=== PATIENT | female | born 1940 | race Caucasian/White ===

== ENCOUNTER 2019-09-24 09:39 | Inpatient (IN) | payer OTHER ==
[2019-09-24] MEDS ORDERED: ACETAMINOPHEN 1000 MG/100 ML VIAL (NON FORMULARY) IVPB ONE (10:07)
--- NOTE | 2019-09-24 10:20 | PDOC ---
History of Present Illness - General Chief Complaint: Rectal Bleed Stated Complaint: GI BLEED/ABD PAIN Time Seen by Provider: 09/24/19 09:51 - History of Present Illness Initial Comments: Selene Corona is a 79 y/o female with PMH significant for Type 1 DM, Parkinson's disease, presenting today with abdominal distension. Pt is A&Ox3 but not able to provide much history. Per EMS she had a GI bleed at the [facility] for the past two days and was started on protonix. Pt reports abdominal pain for the past couple of days. Reports constipation over the past couple of days. Reports vomiting a couple times a day with no blood. No fever/chills. No chest pain/shortness of breath. No leg swelling. 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 Past History - Medical History Allergies/Adverse Reactions: Allergies Allergy/AdvReac Type Severity Reaction Status Date / Time levofloxacin Allergy Verified 09/24/19 10:27 Penicillins Allergy Verified 09/24/19 14:47 Sulfa (Sulfonamide Allergy Verified 09/24/19 10:27 Antibiotics) trimethoprim Allergy Verified 07/18/13 16:30 cephalexin [Cephalexin] AdvReac Verified 09/24/19 10:27 Home Medications: Ambulatory Orders Acetaminophen [Tylenol .Regular Strength -] 650 mg PO Q6H PRN 07/18/13 Insulin (Novolog) [Novolog Flexpen -] 0 units SQ ASDIR 07/18/13 Insulin (Novolog) [Novolog Flexpen -] 3 units SQ ASDIR 07/18/13 Lisinopril [Prinivil -] 2.5 mg PO DAILY 07/18/13 Polyethylene Glycol 3350 [Miralax 255 gm Btl -] 17 gm PO DAILY 07/18/13 Insulin Detemir [Levemir Flextouch] 10 unit SQ AM 09/24/19 Lactulose (Oral Use) [Cephulac -] 20 gm PO DAILY 09/24/19 Ondansetron HCl/Pf [Ondansetron HCl 4 mg/2 ml Vial] 4 mg IM Q8H 09/24/19 Pantoprazole Sodium [Protonix] 40 mg IV DAILY 09/24/19 Potassium Chloride 20 meq PO DAILY 09/24/19 Simethicone [Gas Relief 80] 80 mg PO BID PRN 09/24/19 Anemia: No (peripheral vascular disease) CVA: Yes (SYNCOPE & COLLAPSE) COPD: No Diabetes: Yes GI Disorders: Yes HTN: Yes Hypercholesterolemia: Yes - Psycho-Social/Smoking History Smoking History: Never smoked Have you smoked in the past 12 months: No Information on smoking cessation initiated: No - Substance Abuse Hx (Audit-C & DAST Scrn) How often the patient has a drink containing alcohol: Never Score: In Men: 4 or > Positive; In Women: 3 or > Positive: 0 Screen Result (Pos requires Nsg. Audit-10AR): Negative In the last yr the pt used illegal drug/Rx for NonMed reason: No Score: Yes response is considered Positive: 0 Screen Result (Positive result requires Nsg. DAST-10): Negative Review of Systems - Review of Systems Comments:: GENERAL/CONSTITUTIONAL: No fever or chills. No weakness._ HEAD, EYES, EARS, NOSE AND THROAT: No change in vision. No change in hearing. No sore throat._ CARDIOVASCULAR: No chest pain or shortness of breath_ RESPIRATORY: Denies cough, hemoptysis_ GASTROINTESTINAL: Reports abdominal fullness and pain. Reports vomiting and constipation. GENITOURINARY: No dysuria, frequency, or change in urination._ MUSCULOSKELETAL: No joint or muscle swelling or pain. No neck or back pain._ SKIN: No rash_ NEUROLOGIC: No headache, vertigo, loss of consciousness, or change in strength/sensation._ ENDOCRINE: No increased thirst. No abnormal weight change_ HEMATOLOGIC/LYMPHATIC: No anemia, easy bleeding, or history of blood clots. ALLERGIC/IMMUNOLOGIC: No hives or skin allergy. *Physical Exam - Vital Signs Last Vital Signs Temp Pulse Resp BP Pulse Ox 96.5 F L 90 18 143/78 99 09/24/19 09:53 09/24/19 09:53 09/24/19 09:53 09/24/19 09:53 09/24/19 09:53 - Physical Exam GENERAL: Awake, alert, and oriented to person/place/time, in no acute distress_ HEAD: No signs of trauma, normocephalic, atraumatic _ EYES: PERRLA, EOMI, sclera anicteric, conjunctiva clear_ ENT: Hearing grossly normal, nares patent, oropharynx clear without exudates. No uvular deviation. Moist mucosa_ NECK: Normal ROM, supple, no lymphadenopathy, JVD, or masses_ LUNGS: No distress, speaks in full sentences, clear to auscultation bilaterally _ HEART: Regular rate and rhythm, normal S1 and S2, no murmurs appreciated, peripheral pulses normal and equal bilaterally._ ABDOMEN: Full, distended, hypertympanic. Diffuse tenderness and discomfort. No guarding, no rebound. No masses_ EXTREMITIES: Normal inspection, Normal range of motion, no edema. No clubbing or cyanosis_ NEUROLOGICAL: Cranial nerves II through XII grossly intact. Normal speech, normal no focal sensorimotor deficits _ SKIN: Warm, Dry, normal turgor, no rashes or lesions noted_ ED Treatment Course - LABORATORY CBC & Chemistry Diagram: 09/24/19 10:10 09/24/19 10:21 - RADIOLOGY Radiology Studies Ordered: Category Date Time Status CHEST X-RAY PORTABLE* [RAD] Stat Radiology 09/24/19 09:56 Ordered Medical Decision Making - Medical Decision Making 79F hx of T1DM and parkinson's presenting today with two days of concern for GI bleed. -labs -type and screen -ekg -cxr -CT abd -XR KUB 09/24/19 10:13 D/w Vanessa RHOADES. Pt had coffee ground emesis a couplke days ago x1 on 09/20. Also had vomiting of undigested food. Protonix started on September 20 40 mg BID for 1 week IV. Vomited this morning with clear fluids. XR on 09/21 shows pseudoobstruction. Seen by Dr. Mcneill this morning who requests admission to the hospital. 09/24/19 10:45 XR KUB shows likely volvulus. Unsure of how long this has been going on. Surgery consult. 09/24/19 11:35 EKG shows 87 bpm, NSR, LAD (seen on prior EKG on 2014), QTc 454, MT 162. 09/24/19 12:33 D/w Dr. Marte who states that he does not perform scopes. D/w Dr. Navarro who will evaluate the pt. Pt in LL decubitus and fleet enema applied. 09/24/19 12:39 Will start meropenem given pt allergies. 09/24/19 12:40 CT abd shows Lack of oral contrast is limiting this exam. There is marked dilatation of colonic bowel in the abdomen and pelvis without wall thickening suggestive of sigmoid volvulus. The rest of the colon is fluid-filled without dilatation and without gross wall thickening. There is no evidence of small bowel obstruction. Small to moderate amount of free fluid/ascites in the right upper abdomen and pelvis. Atrophic left kidney. Extensive vascular calcifications, as described above. Significant dilatation of the included distal esophagus down to the level of the GE junction where there appears to be a low-attenuation masslike density, on the left measuring approximately 3.8 cm and 2 Hounsfield units that may represent a fluid collection in its wall or fluid within a tortuous distal esophagus. Further evaluation is recommended. Bibasal consolidation/atelectasis/pneumonia and small bilateral pleural effusion, right more than left. 09/24/19 13:23 Labs reviewed. Laboratory Last Values WBC 12.3 K/mm3 (4.0-10.0) H 09/24/19 10:10 RBC 3.96 M/mm3 (3.60-5.2) 09/24/19 10:10 Hgb 12.5 GM/dL (10.7-15.3) 09/24/19 10:10 Hct 38.1 % (32.4-45.2) 09/24/19 10:10 MCV 96.2 fl (80-96) H 09/24/19 10:10 MCH 31.6 pg (25.7-33.7) 09/24/19 10:10 MCHC 32.9 g/dl (32.0-36.0) 09/24/19 10:10 RDW 14.5 % (11.6-15.6) 09/24/19 10:10 Plt Count 371 K/MM3 (134-434) 09/24/19 10:10 MPV 10.1 fl (7.5-11.1) 09/24/19 10:10 Absolute Neuts (auto) 10.9 K/mm3 (1.5-8.0) H 09/24/19 10:10 Neutrophils % 88.3 % (42.8-82.8) H 09/24/19 10:10 Lymphocytes % 5.9 % (8-40) L 09/24/19 10:10 Monocytes % 5.3 % (3.8-10.2) 09/24/19 10:10 Eosinophils % 0.4 % (0-4.5) 09/24/19 10:10 Basophils % 0.1 % (0-2.0) 09/24/19 10:10 Nucleated RBC % 0 % (0-0) 09/24/19 10:10 PT with INR 10.70 SEC (9.7-13.0) 09/24/19 10:10 INR 0.91 (0.83-1.09) 09/24/19 10:10 PTT (Actin FS) 25.6 SECONDS (25.2-36.5) 09/24/19 10:10 Sodium 134 mmol/L (136-145) L 09/24/19 10:21 Potassium 3.3 mmol/L (3.5-5.1) L 09/24/19 10:21 Chloride 100 mmol/L (98-107) 09/24/19 10:21 Carbon Dioxide 27 mmol/L (21-32) 09/24/19 10:21 Anion Gap 7 MMOL/L (8-16) L 09/24/19 10:21 BUN 19.7 mg/dL (7-18) H 09/24/19 10:21 Creatinine 0.8 mg/dL (0.55-1.3) 09/24/19 10:21 Est GFR (CKD-EPI)AfAm 82.42 09/24/19 10:21 Est GFR (CKD-EPI)NonAf 71.11 09/24/19 10:21 POC Glucometer 157 UNITS (80-120) 09/24/19 11:01 Random Glucose 204 mg/dL (74-106) H 09/24/19 10:21 Lactic Acid 3.0 mmol/L (0.4-2.0) H* 09/24/19 10:21 Calcium 8.3 mg/dL (8.5-10.1) L 09/24/19 10:21 Total Bilirubin 0.3 mg/dL (0.2-1) 09/24/19 10:21 AST 23 U/L (15-37) 09/24/19 10:21 ALT 19 U/L (13-61) 09/24/19 10:21 Alkaline Phosphatase 141 U/L (45-117) H 09/24/19 10:21 Creatine Kinase 164 U/L (26-192) 09/24/19 10:21 Creatine Kinase Index 2.0 % (0.0-5.0) 09/24/19 10:21 CK-MB (CK-2) 3.3 ng/mL (0.5-3.6) 09/24/19 10:21 Troponin I 0.20 ng/ml (0.00-0.05) H 09/24/19 10:21 Total Protein 6.0 g/dl (6.4-8.2) L 09/24/19 10:21 Albumin 2.5 g/dl (3.4-5.0) L 09/24/19 10:21 Lipase 60 U/L (73-393) L 09/24/19 10:21 Stool Occult Blood Trace (NEGATIVE) 09/24/19 10:03 Blood Type O POSITIVE 09/24/19 12:09 Antibody Screen Negative 09/24/19 12:09 Dr. Navarro in the ED for rectal tube placement and decompression. Pt reassessed and reports improvement in abdominal discomfort. 09/24/19 15:05 Rpt KUB XR shows rectal tube in place and bowel decompressed. D/w Dr. Emmanuel in the ICU who accepts the pt for admission. Discharge - Discharge Information Problems reviewed: Yes Clinical Impression/Diagnosis: Sigmoid volvulus Condition: Guarded - Admission Yes - Follow up/Referral - Patient Discharge Instructions - Post Discharge Activity
[2019-09-24] MEDS ORDERED: ACETAMINOPHEN INJECTION 100 ML IVPB ONE (10:23)
[2019-09-24 10:53] LABS: BASO % 0.1 % (0-2.0); EOS % 0.4 % (0-4.5); HEMATOCRIT 38.1 % (32.4-45.2); HEMOGLOBIN 12.5 GM/dL (10.7-15.3); LYMPH % 5.9 % (8-40); MCH 31.6 pg (25.7-33.7); MCHC 32.9 g/dl (32.0-36.0); MEAN CELL VOLUME 96.2 fl (80-96); MEAN PLT VOLUME 10.1 fl (7.5-11.1); MONO % 5.3 % (3.8-10.2); NEUT % 88.3 % (42.8-82.8); PLATELET COUNT 371 K/MM3 (134-434); RBC 3.96 M/mm3 (3.60-5.2); RDW 14.5 % (11.6-15.6); WHITE BLOOD COUNT 12.3 K/mm3 (4.0-10.0)
[2019-09-24 10:59] LABS: INR 0.91 (0.83-1.09); PROTHROMBIN TIME (PATIENT) 10.7 SEC (9.7-13.0)
[2019-09-24 11:01] LABS: ACTIVATED PTT 25.6 SECONDS (25.2-36.5)
--- NOTE | 2019-09-24 11:04 | PDOC ---
Documentation entered by Macrina Hodges SCRIBE, acting as scribe for Stephani Toussaint MD. Stephani Toussaint MD: This documentation has been prepared by the Tracie means Brenda, SCRIBE, under my direction and personally reviewed by me in its entirety. I confirm that the documentation accurately reflects all work, treatment, procedures, and medical decision making performed by me. Attending Attestation - Resident Resident Name: Rogelio Juárez - ED Attending Attestation I have performed the following: I have examined & evaluated the patient, The case was reviewed & discussed with the resident, I agree w/resident's findings & plan, Exceptions are as noted - HPI HPI: 09/24/19 10:42 The patient is a 79 year old female with a significant PMH of HTN, HLD and chronic constipation who presents to the ED [facility] from [facility] for evaluation of several episodes of coffee ground emesis. Per [facility], the patient had a XR on 09/22/2019 that showed a psuedo obstruction. Patient is endorsing abdominal pain and abdominal distension. She notes that she may have had a bowel movement yesterday but notes that it has been a long time since she has had a bowel movement or passed gas. - Physicial Exam PE: 09/24/19 11:15 GENERAL: (+) Mildy Uncomfortable. A&Ox3. Awake, alert, and fully oriented. HEAD: No signs of trauma NECK: Normal ROM, supple, no lymphadenopathy, JVD, or masses LUNGS: Breath sounds equal, clear to auscultation bilaterally. No wheezes, and no crackles HEART: Regular rate and rhythm, normal S1 and S2, no murmurs, rubs or gallops ABDOMEN: (+) Grossly distended (+) Diffusely tender. Normoactive bowel sounds. No masses EXTREMITIES: Normal range of motion, no edema. No clubbing or cyanosis. No cords, erythema, or tenderness NEUROLOGICAL: Cranial nerves II through XII grossly intact. Normal speech, normal gait SKIN: Warm, Dry, normal turgor, no rashes or lesions noted. - Critical Care Time Total Critical Care Time: 30 Critical Care Statement: The care of this patient involved high complexity decision making to prevent further life threatening deterioration of the patient's condition and/or to evaluate & treat vital organ system(s) failure or risk of failure. - Medical Decision Making 09/24/19 11:01 Pt presents to the ED complaining of a several day history of worsening abdominal distention, abdominal pain, nausea and vomiting. History of chronic constipation. Exam consistent with sigmoid volvulus. Flat plate of abdomen is consistent with sigmoid vovlulus. Case discussed with Dr. Mosqueda, who requests CT abdomen to distinguish between cecal and sigmoid volvulus. Patient taken for emergent CT. 09/24/19 11:02 09/24/19 11:03 Discharge - Discharge Information Problems reviewed: Yes Clinical Impression/Diagnosis: Sigmoid volvulus Condition: Guarded - Follow up/Referral - Patient Discharge Instructions - Post Discharge Activity
[2019-09-24 11:29] LABS: ALBUMIN 2.5 g/dl (3.4-5.0); BILIRUBIN,TOTAL 0.3 mg/dL (0.2-1); BLOOD UREA NITROGEN 19.7 mg/dL (7-18); CALCIUM 8.3 mg/dL (8.5-10.1); CREATININE 0.8 mg/dL (0.55-1.3); POTASSIUM 3.3 mmol/L (3.5-5.1)
[2019-09-24] MEDS ORDERED: LACTATED RINGERS SOLUTION 1000 ML INFUS.BAG IV ONE (11:44)
--- NOTE | 2019-09-24 11:48 | EKG ---
Test Reason : Blood Pressure : / mmHG Vent. Rate : 087 BPM Atrial Rate : 087 BPM P-R Int : 162 ms QRS Dur : 102 ms QT Int : 378 ms P-R-T Axes : 052 -57 039 degrees QTc Int : 454 ms NORMAL SINUS RHYTHM LEFT AXIS DEVIATION SEPTAL INFARCT , AGE UNDETERMINED POSSIBLE LATERAL INFARCT , AGE UNDETERMINED INFERIOR INFARCT , AGE UNDETERMINED ABNORMAL ECG NO PREVIOUS ECGS AVAILABLE Confirmed by ALAYNA ARIAS MD ([id number]) on 09/24/2019 11:48:15 AM Referred By: Confirmed By:ALAYNA ARIAS MD
[2019-09-24] MEDS ORDERED: SODIUM PHOSPHATE/NA BIPHOS 133 ML ENEMA PR ONE (12:24)
--- NOTE | 2019-09-24 12:26 | PN ---
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 (short form) - Note 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: surgery 79f with multiple medical problems, [facility] from [facility] after several days of treatment of pseudo-obstruction and now vomiting. kub consistent with volvulus, ct shows likely sigmoid volvulus. lactic acid 3. wbc 14, troponin 4x normal. recommend gi eval for decompression of sigmoid volvulus. consider merepenem for translocation of bacteria in setting pcn allergy. if gi unsuccessful I am available for laparotomy, sigmoid colectomy and colostomy. Pt is a poor candidate for surgery and likely would have a poor outcome.
[2019-09-24] MEDS ORDERED: MEROPENEM 1 GM in DEXTROSE 5%-WATER 100 ML IVPB ONE (12:37)
[2019-09-24] MEDS ORDERED: MEROPENEM 1 GM VIAL (RESTRICTED TO ID) IVPB ONE (12:43)
[2019-09-24] MEDS ORDERED: MEROPENEM 1 GM in SODIUM CHLORIDE 100 ML IVPB ONE (12:49)
[2019-09-24] MEDS ORDERED: LACTATED RINGERS SOLUTION 1,000 ML/1,000 ML INFUS.BAG IV SCH ×2 (14:30→17:38)
--- NOTE | 2019-09-24 14:45 | HP ---
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 On coffe grounds vomiting. In the ER CT scan of the abdimen is suggestive of sigmoid volvulus and rigid sig and rectal tube for decompression performed. Lactic acid 3.0 noted. The patient is being admitted for further management History of Present Illness: DM type 2, previously on Insulin. Atrophic kidney, history of cystitis, uti, hydronephrosis. Parkinson's disease. HTN Gait disorder. Falling. HLD, Multiple allergy. DNR/DNI Left hip fracture Syncope Compression fracture L1 Hydrocephalus on CT scan 2014 History Source: Patient, Medical Record Limitations to Obtaining History: Clinical Condition - Past Medical History FINANCE PROFESSIONAL: Yes: Syncope Cardiovascular: Yes: HTN, Hyperlipdemia Endocrine: Yes: Diabetes Mellitus - Smoking History Smoking history: Never smoked Have you smoked in the past 12 months: No - Alcohol/Substance Use Hx Alcohol Use: No - Social History ADL: Support Services History of Recent Travel: No Home Medications - Allergies Allergies/Adverse Reactions: Allergies Allergy/AdvReac Type Severity Reaction Status Date / Time levofloxacin Allergy Verified 09/24/19 10:27 Penicillins Allergy Verified 09/24/19 14:47 Sulfa (Sulfonamide Allergy Verified 09/24/19 10:27 Antibiotics) trimethoprim Allergy Verified 07/18/13 16:30 cephalexin [Cephalexin] AdvReac Verified 09/24/19 10:27 - Home Medications Home Medications: Ambulatory Orders Acetaminophen [Tylenol .Regular Strength -] 650 mg PO Q6H PRN 07/18/13 Insulin (Novolog) [Novolog Flexpen -] 0 units SQ ASDIR 07/18/13 Insulin (Novolog) [Novolog Flexpen -] 3 units SQ ASDIR 07/18/13 Lisinopril [Prinivil -] 2.5 mg PO DAILY 07/18/13 Polyethylene Glycol 3350 [Miralax 255 gm Btl -] 17 gm PO DAILY 07/18/13 Insulin Detemir [Levemir Flextouch] 10 unit SQ AM 09/24/19 Lactulose (Oral Use) [Cephulac -] 20 gm PO DAILY 09/24/19 Ondansetron HCl/Pf [Ondansetron HCl 4 mg/2 ml Vial] 4 mg IM Q8H 09/24/19 Pantoprazole Sodium [Protonix] 40 mg IV DAILY 09/24/19 Potassium Chloride 20 meq PO DAILY 09/24/19 Simethicone [Gas Relief 80] 80 mg PO BID PRN 09/24/19 Family Medical History Family History: Unremarkable Review of Systems Unable to obtain ROS, reason: Clinical condition Physical Examination Vital Signs: Vital Signs Temperature 96.5 F L 09/24/19 09:53 Pulse Rate 105 H 09/24/19 13:45 Respiratory Rate 09/24/19 13:45 Blood Pressure 158/74 09/24/19 13:45 O2 Sat by Pulse Oximetry (%) 98 09/24/19 13:45 Constitutional: Yes: Anxious, Moderate Distress, Pallor, Thin Eyes: Yes: EOM Intact, PERRL. No: Tearing HENT: Yes: Atraumatic, Normocephalic Neck: Yes: Supple, Trachea Midline. No: Decreased ROM, Lymphadenopathy Cardiovascular: Yes: Regular Rate and Rhythm, S1, S2. No: Bradycardia, Tachycardia, Bruit, JVD, Gallop, Murmur Respiratory: Yes: Regular, CTA Bilaterally Gastrointestinal: Yes: Distention, Tenderness, Vomiting. No: Palpable Mass ...Rectal Exam: Yes: Other (Tube placed) Breast(s): Yes: WNL Musculoskeletal: No: Joint Stiffness, Joint Swelling Extremities: No: Amputation, Calf Tenderness, Cold, Cyanosis Edema: No Peripheral Pulses WNL: No Peripheral Pulses: Left Doralis Pedis: 1+, Right Dorsalis Pedis: 1+ Neurological: Yes: Alert, Oriented, Unsteady Gait, Weakness. No: Aphasia, Asterixis, Ataxia, Babinski positive, Seizure ...Motor Strength: WNL Psychiatric: Yes: Alert, Oriented. No: Agitated, Suicidal Ideation Labs: CBC, BMP 09/24/19 10:10 09/24/19 10:21 Laboratory Results - last 24 hr 09/24/19 09/24/19 09/24/19 10:03 10:10 10:10 WBC 12.3 H RBC 3.96 Hgb 12.5 Hct 38.1 MCV 96.2 H MCH 31.6 MCHC 32.9 RDW 14.5 Plt Count 371 MPV 10.1 Absolute Neuts (auto) 10.9 H Neutrophils % 88.3 H Lymphocytes % 5.9 L Monocytes % 5.3 Eosinophils % 0.4 Basophils % 0.1 Nucleated RBC % 0 PT with INR 10.70 INR 0.91 PTT (Actin FS) 25.6 Sodium Potassium Chloride Carbon Dioxide Anion Gap BUN Creatinine Est GFR (CKD-EPI)AfAm Est GFR (CKD-EPI)NonAf POC Glucometer Random Glucose Lactic Acid Calcium Total Bilirubin AST ALT Alkaline Phosphatase Creatine Kinase Creatine Kinase Index CK-MB (CK-2) Troponin I Total Protein Albumin Lipase Stool Occult Blood Trace Blood Type Antibody Screen 09/24/19 09/24/19 09/24/19 10:10 10:21 10:21 WBC RBC Hgb Hct MCV MCH MCHC RDW Plt Count MPV Absolute Neuts (auto) Neutrophils % Lymphocytes % Monocytes % Eosinophils % Basophils % Nucleated RBC % PT with INR INR PTT (Actin FS) Sodium 134 L Potassium 3.3 L Chloride 100 Carbon Dioxide 27 Anion Gap 7 L BUN 19.7 H Creatinine 0.8 Est GFR (CKD-EPI)AfAm 82.42 Est GFR (CKD-EPI)NonAf 71.11 POC Glucometer Random Glucose 204 H Lactic Acid 3.0 H* Calcium 8.3 L Total Bilirubin 0.3 AST 23 ALT 19 Alkaline Phosphatase 141 H Creatine Kinase 164 Creatine Kinase Index 2.0 CK-MB (CK-2) 3.3 Troponin I 0.20 H Total Protein 6.0 L Albumin 2.5 L Lipase Stool Occult Blood Blood Type Cancelled Antibody Screen Cancelled 09/24/19 09/24/19 09/24/19 10:21 11:01 12:09 WBC RBC Hgb Hct MCV MCH MCHC RDW Plt Count MPV Absolute Neuts (auto) Neutrophils % Lymphocytes % Monocytes % Eosinophils % Basophils % Nucleated RBC % PT with INR INR PTT (Actin FS) Sodium Potassium Chloride Carbon Dioxide Anion Gap BUN Creatinine Est GFR (CKD-EPI)AfAm Est GFR (CKD-EPI)NonAf POC Glucometer 157 Random Glucose Lactic Acid Calcium Total Bilirubin AST ALT Alkaline Phosphatase Creatine Kinase Creatine Kinase Index CK-MB (CK-2) Troponin I Total Protein Albumin Lipase 60 L Stool Occult Blood Blood Type O POSITIVE Antibody Screen Negative Imaging - Results Chest X-ray: Report Reviewed Cat Scan: Report Reviewed EKG: Image Reviewed Problem List - Problems (1) Sigmoid volvulus Assessment/Plan: Dr Mosqueda was consulted, GI consulted. Recommended decompression. Rectal tube conservative management. High waqar-operative risk. IV abx and ID consult. Meropenem were given in the ER Problems reviewed: Yes Code(s): K56.2 - VOLVULUS (2) Elevated lactic acid level Assessment/Plan: R/o ischemia of the bowel due to distention Follow Lactate/ Problems reviewed: Yes Code(s): R79.89 - OTHER SPECIFIED ABNORMAL FINDINGS OF BLOOD CHEMISTRY (3) Diabetes 1.5, managed as type 1 Assessment/Plan: Follow BGM and cover with Novolog Problems reviewed: Yes Code(s): E13.9 - OTHER SPECIFIED DIABETES MELLITUS WITHOUT COMPLICATIONS (4) ASHD (arteriosclerotic heart disease) Assessment/Plan: Old SC. Cardiac enzymes. Cardiology consult, ECHO Troponin 0.2-0.2 Elevated BNP Problems reviewed: Yes Code(s): I25.10 - ATHSCL HEART DISEASE OF [place] CORONARY ARTERY W/O ANG PCTRS (5) Hypokalemia Assessment/Plan: Replace K IV NPO. Problems reviewed: Yes Code(s): E87.6 - HYPOKALEMIA
[2019-09-24] MEDS: KCL 10 MEQ IVPB 10 MEQ/100 ML INFUS.BAG IVPB SCH ×2 (14:50→18:20)
[2019-09-24] MEDS ORDERED: KCL 10 MEQ IVPB 10 MEQ/100 ML INFUS.BAG IVPB ONE (15:00)
[2019-09-24 15:04] LABS: N-TERMINAL BNP 2955.1 pg/ml (5-450)
--- NOTE | 2019-09-24 15:06 | CONSULT ---
- Consultation REQUESTING PROVIDER: CONSULT REQUEST: We have been asked to surgically evaluate this patient for suspected sigmoid volvulus PCP: Brenton Mcneill HISTORY OF PRESENT ILLNESS: Selene Corona is a 79 y/o female with PMH significant for Type 1 DM, Parkinson's disease with dementia, presented to the ED with abdominal distension. Pt is A&Ox3 but not able to provide much history. Per EMS she had a suspected GI bleed at the senior living for the past two days and was started on protonix. ED CHAINMAN confirmed info with [facility]/w Vanessa RHOADES, coffee ground emesis a couple days ago one time 09/20 - vomit, undigested food, vomited again on , protonix on the 40 mg BID x1 week IV today? vomited this morning clear fluids, XR - pseudo obstruction - Pt reports abdominal pain for the past couple of days. Reports constipation over the past couple of days. Reports vomiting a couple times a day with no blood. No fever/chills. No chest pain/shortness of breath. No leg swelling. A rectal tube was placed in the ED and patient was decompressed, however her abdomen remains distended. 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 Past History - Medical History Allergies/Adverse Reactions: Allergies Allergy/AdvReac Type Severity Reaction Status Date / Time levofloxacin Allergy Verified 09/24/19 10:27 Penicillins Allergy Verified 09/24/19 10:27 Sulfa (Sulfonamide Allergy Verified 09/24/19 10:27 Antibiotics) trimethoprim Allergy Verified 07/18/13 16:30 cephalexin [Cephalexin] AdvReac Verified 09/24/19 10:27 Home Medications: Ambulatory Orders Acetaminophen [Tylenol .Regular Strength -] 650 mg PO Q6H PRN 07/18/13 Insulin (Novolog) [Novolog Flexpen -] 0 units SQ ASDIR 07/18/13 Insulin (Novolog) [Novolog Flexpen -] 3 units SQ ASDIR 07/18/13 Lisinopril [Prinivil -] 2.5 mg PO DAILY 07/18/13 Polyethylene Glycol 3350 [Miralax 255 gm Btl -] 17 gm PO DAILY 07/18/13 Insulin Detemir [Levemir Flextouch] 10 unit SQ AM 09/24/19 Lactulose (Oral Use) [Cephulac -] 20 gm PO DAILY 09/24/19 Ondansetron HCl/Pf [Ondansetron HCl 4 mg/2 ml Vial] 4 mg IM Q8H 09/24/19 Pantoprazole Sodium [Protonix] 40 mg IV DAILY 09/24/19 Potassium Chloride 20 meq PO DAILY 09/24/19 Simethicone [Gas Relief 80] 80 mg PO BID PRN 09/24/19 Anemia: No (peripheral vascular disease) CVA: Yes (SYNCOPE & COLLAPSE) COPD: No Diabetes: Yes GI Disorders: Yes HTN: Yes Hypercholesterolemia: Yes - Psycho-Social/Smoking History Smoking History: Never smoked Have you smoked in the past 12 months: No Information on smoking cessation initiated: No - Substance Abuse Hx (Audit-C & DAST Scrn) How often the patient has a drink containing alcohol: Never Score: In Men: 4 or > Positive; In Women: 3 or > Positive: 0 Screen Result (Pos requires Nsg. Audit-10AR): Negative In the last yr the pt used illegal drug/Rx for NonMed reason: No Score: Yes response is considered Positive: 0 Screen Result (Positive result requires Nsg. DAST-10): Negative Review of Systems GENERAL/CONSTITUTIONAL: No fever or chills. No weakness. HEAD, EYES, EARS, NOSE AND THROAT: No change in vision. No change in hearing. No sore throat. CARDIOVASCULAR: No chest pain or shortness of breath RESPIRATORY: Denies cough, hemoptysis GASTROINTESTINAL: Reports abdominal fullness and pain. Reports vomiting and constipation. GENITOURINARY: No dysuria, frequency, or change in urination. MUSCULOSKELETAL: No joint or muscle swelling or pain. No neck or back pain. SKIN: No rash_ NEUROLOGIC: No headache, vertigo, loss of consciousness, or change in strength/sensation. ENDOCRINE: No increased thirst. No abnormal weight change HEMATOLOGIC/LYMPHATIC: No anemia, easy bleeding, or history of blood clots. ALLERGIC/IMMUNOLOGIC: No hives or skin allergy. *Physical Exam - Vital Signs Vital Signs Period Temp Pulse Resp BP Sys/Grossman Pulse Ox Last 24 Hr 96.5 F 90-105 18-20 143-158/74-78 98-100 - Physical Exam GENERAL: A&Ox3, NAD HEAD: No signs of trauma, normocephalic, atraumatic EYES: PERRLA, EOMI, sclera anicteric, conjunctiva clear ENT: Hearing grossly normal, nares patent, NECK: trachea midline LUNGS: Unlabored resp on @L NC, no accessory muscle use, no auditory wheezes. ABDOMEN: Full, distended, hypertympanic. no scars or lesions. some local skin irritation over LLQ, minimal diffuse tenderness and discomfort, No guarding, no rebound. No masses EXTREMITIES: Normal inspection, no edema. No clubbing or cyanosis NEUROLOGICAL: Cranial nerves II through XII grossly intact. Normal speech, normal no focal sensorimotor deficits -gait not observed SKIN: Warm, Dry, normal turgor, CBC, BMP 09/24/19 10:10 09/24/19 10:21 Abnormal Lab Results 09/24/19 09/24/19 09/24/19 10:10 10:21 10:21 WBC 12.3 H MCV 96.2 H Absolute Neuts (auto) 10.9 H Neutrophils % 88.3 H Lymphocytes % 5.9 L Sodium 134 L Potassium 3.3 L Anion Gap 7 L BUN 19.7 H Random Glucose 204 H Lactic Acid 3.0 H* Calcium 8.3 L Alkaline Phosphatase 141 H Troponin I 0.20 H B-Natriuretic Peptide Total Protein 6.0 L Albumin 2.5 L Lipase 09/24/19 09/24/19 10:21 14:00 WBC MCV Absolute Neuts (auto) Neutrophils % Lymphocytes % Sodium Potassium Anion Gap BUN Random Glucose Lactic Acid Calcium Alkaline Phosphatase Troponin I 0.20 H B-Natriuretic Peptide 2955.1 H Total Protein Albumin Lipase 60 L X-Ray, ABdomen KUB-flat plate: findings suggestive of volvulus CT scan of abdomen /pelvis: Lack of contrast is limiting the exam. There is marked dilation of colonic bowel in the abdomen and pelvis without wall thickening suggestive of sigmoid volvulus. The rest of the colon is fluid filled without dilatation without gross wall thickening. Significant dilatation of the included distal esophagus down to the level of the GE junction where there appears to be a low attenuation mass like density, on the left measuring @3.8cm and 2 Hounsfield units that may represent a fluid collection in its wall or fluid within a tourtuous distal esophagus Problem List - Problems (1) Volvulus of descending colon Assessment/Plan: 79yo with suspected sigmoid volvlus and elevated lactic acid, pain improved after decompression with rectal tube. Patient to be admitted to ICU for close observation. -Continue NPO-NGT if worsening pain or vomiting -Repeat Abdominal x-ray- KUB now -Repeat and trend lactic acid -Trend fever curve -Pain control -Surgery to follow. Evaluation and plan discussed with Dr Mosqueda Code(s): K56.2 - VOLVULUS
--- NOTE | 2019-09-24 15:20 | CON.CARD ---
Cardiology Consult (text) - Consultation Consultation Note: cc: abd pain hpi: 79 f hx htn, hld, dm, sent from ct for abd pain. Has chronic constipation, worse lately with abd/epigastric pain. No cp sob palps dizzy loc pnd orthopnea le edema. Found to have sigmoid volvulus here. pmh: per hpi psH: hip surgery social: no tob fam: no premature cad, scd ros: per hpi; all others nl meds: Home Medications Medication Instructions Recorded Acetaminophen [Tylenol .Regular 650 mg PO Q6H PRN 07/18/13 Strength -] Insulin (Novolog) [Novolog Flexpen 0 units SQ ASDIR 07/18/13 -] Insulin (Novolog) [Novolog Flexpen 3 units SQ ASDIR 07/18/13 -] Lisinopril [Prinivil -] 2.5 mg PO DAILY 07/18/13 Polyethylene Glycol 3350 [Miralax 17 gm PO DAILY 07/18/13 255 gm Btl -] Insulin Detemir [Levemir Flextouch] 10 unit SQ AM 09/24/19 Lactulose (Oral Use) [Cephulac -] 20 gm PO DAILY 09/24/19 Ondansetron HCl/Pf [Ondansetron 4 mg IM Q8H 09/24/19 HCl 4 mg/2 ml Vial] Pantoprazole Sodium [Protonix] 40 mg IV DAILY 09/24/19 Potassium Chloride 20 meq PO DAILY 09/24/19 Simethicone [Gas Relief 80] 80 mg PO BID PRN 09/24/19 pe: Vital Signs Period Temp Pulse Resp BP Sys/Grossman Pulse Ox Last 24 Hr 96.5 F 90-105 18-20 143-158/74-78 98-100 nad no jvd rrr s1s2 no r/g, +murmur (as/aortic sclerosis) abd mildly tender, nd, dec bs cta bl nl eff aao3 no le e/c/c no jaundice diaphoresis pos dp pt no cartoid bruits Laboratory Last Values WBC 12.3 K/mm3 (4.0-10.0) H 09/24/19 10:10 RBC 3.96 M/mm3 (3.60-5.2) 09/24/19 10:10 Hgb 12.5 GM/dL (10.7-15.3) 09/24/19 10:10 Hct 38.1 % (32.4-45.2) 09/24/19 10:10 MCV 96.2 fl (80-96) H 09/24/19 10:10 MCH 31.6 pg (25.7-33.7) 09/24/19 10:10 MCHC 32.9 g/dl (32.0-36.0) 09/24/19 10:10 RDW 14.5 % (11.6-15.6) 09/24/19 10:10 Plt Count 371 K/MM3 (134-434) 09/24/19 10:10 MPV 10.1 fl (7.5-11.1) 09/24/19 10:10 Absolute Neuts (auto) 10.9 K/mm3 (1.5-8.0) H 09/24/19 10:10 Neutrophils % 88.3 % (42.8-82.8) H 09/24/19 10:10 Lymphocytes % 5.9 % (8-40) L 09/24/19 10:10 Monocytes % 5.3 % (3.8-10.2) 09/24/19 10:10 Eosinophils % 0.4 % (0-4.5) 09/24/19 10:10 Basophils % 0.1 % (0-2.0) 09/24/19 10:10 Nucleated RBC % 0 % (0-0) 09/24/19 10:10 PT with INR 10.70 SEC (9.7-13.0) 09/24/19 10:10 INR 0.91 (0.83-1.09) 09/24/19 10:10 PTT (Actin FS) 25.6 SECONDS (25.2-36.5) 09/24/19 10:10 Sodium 134 mmol/L (136-145) L 09/24/19 10:21 Potassium 3.3 mmol/L (3.5-5.1) L 09/24/19 10:21 Chloride 100 mmol/L (98-107) 09/24/19 10:21 Carbon Dioxide 27 mmol/L (21-32) 09/24/19 10:21 Anion Gap 7 MMOL/L (8-16) L 09/24/19 10:21 BUN 19.7 mg/dL (7-18) H 09/24/19 10:21 Creatinine 0.8 mg/dL (0.55-1.3) 09/24/19 10:21 Est GFR (CKD-EPI)AfAm 82.42 09/24/19 10:21 Est GFR (CKD-EPI)NonAf 71.11 09/24/19 10:21 POC Glucometer 157 UNITS (80-120) 09/24/19 11:01 Random Glucose 204 mg/dL (74-106) H 09/24/19 10:21 Lactic Acid 3.0 mmol/L (0.4-2.0) H* 09/24/19 10:21 Calcium 8.3 mg/dL (8.5-10.1) L 09/24/19 10:21 Total Bilirubin 0.3 mg/dL (0.2-1) 09/24/19 10:21 AST 23 U/L (15-37) 09/24/19 10:21 ALT 19 U/L (13-61) 09/24/19 10:21 Alkaline Phosphatase 141 U/L (45-117) H 09/24/19 10:21 Creatine Kinase 174 U/L (26-192) 09/24/19 14:00 Creatine Kinase Index 2.0 % (0.0-5.0) 09/24/19 10:21 CK-MB (CK-2) 3.3 ng/mL (0.5-3.6) 09/24/19 10:21 Troponin I 0.20 ng/ml (0.00-0.05) H 09/24/19 14:00 B-Natriuretic Peptide 2955.1 pg/ml (5-450) H 09/24/19 14:00 Total Protein 6.0 g/dl (6.4-8.2) L 09/24/19 10:21 Albumin 2.5 g/dl (3.4-5.0) L 09/24/19 10:21 Lipase 60 U/L (73-393) L 09/24/19 10:21 Stool Occult Blood Trace (NEGATIVE) 09/24/19 10:03 Blood Type O POSITIVE 09/24/19 12:09 Antibody Screen Negative 09/24/19 12:09 ecg: sr nl intervals no ischemic changes cxr: no sig chf a/p: 79 f hx htn, hld, dm, sent from ct for abd pain. abd pain, sigmoid volvulus: -no signs acs. pt denies cp presently, has mostly abd pain -cont tx of volvulus per GI htn: -stable positive trop: -borderline trop elevation with flat trend and nl ck, not c/w acs. ecg w/o ischemic changes. -echo pending
--- NOTE | 2019-09-24 15:29 | CONSULT ---
Consultation: REQUESTING PROVIDER: CONSULT REQUEST: We have been asked to medically evaluate this patient for Ischemic bowel. HISTORY OF PRESENT ILLNESS: 79 year old with PMH T2DM, and Parkinson's disease presented to the ED with progressive abdominal distention and abdominal pain. Pt complained of anorexia for several days due to feelings of nausea. Reported coffee ground emesis and was placed on Protonix. Pt also complained of constipation. Pt is unsure when her last bowel movement was. Pt never had colonoscopy or endoscopy in the past. Denies fevers, chills, chest pain or shortness of breath. Admits to nausea, vomiting, abdominal pain and constipation. REVIEW OF SYSTEMS: As per HPI PMH: As above PSH: hip surgery PHYSICAL EXAMINATION Vital Signs - 24 hr 09/24/19 09/24/19 09/24/19 09:53 11:13 13:45 Temperature 96.5 F L Pulse Rate 90 Pulse Rate [ 105 H Right Radial] Respiratory 18 20 Rate Blood Pressure 143/78 Blood Pressure 158/74 [Left Arm] O2 Sat by Pulse 99 100 98 Oximetry (%) GENERAL: Awake, alert and lying in the stretcher. No acute distress/ HEENT: NCAT, EOMI. LUNGS: Breath sounds equal, clear to auscultation bilaterally HEART: Normal S1 and S2 without murmur. Regular rate and rhythm ABDOMEN: Soft, nontender, slightly distended, normoactive bowel sounds, no guarding. No scars. EXTREMITIES: No edema, well-perfused. SKIN: Warm, dry. Laboratory Last Values WBC 12.3 K/mm3 (4.0-10.0) H 09/24/19 10:10 RBC 3.96 M/mm3 (3.60-5.2) 09/24/19 10:10 Hgb 12.5 GM/dL (10.7-15.3) 09/24/19 10:10 Hct 38.1 % (32.4-45.2) 09/24/19 10:10 MCV 96.2 fl (80-96) H 09/24/19 10:10 MCH 31.6 pg (25.7-33.7) 09/24/19 10:10 MCHC 32.9 g/dl (32.0-36.0) 09/24/19 10:10 RDW 14.5 % (11.6-15.6) 09/24/19 10:10 Plt Count 371 K/MM3 (134-434) 09/24/19 10:10 MPV 10.1 fl (7.5-11.1) 09/24/19 10:10 Absolute Neuts (auto) 10.9 K/mm3 (1.5-8.0) H 09/24/19 10:10 Neutrophils % 88.3 % (42.8-82.8) H 09/24/19 10:10 Lymphocytes % 5.9 % (8-40) L 09/24/19 10:10 Monocytes % 5.3 % (3.8-10.2) 09/24/19 10:10 Eosinophils % 0.4 % (0-4.5) 09/24/19 10:10 Basophils % 0.1 % (0-2.0) 09/24/19 10:10 Nucleated RBC % 0 % (0-0) 09/24/19 10:10 PT with INR 10.70 SEC (9.7-13.0) 09/24/19 10:10 INR 0.91 (0.83-1.09) 09/24/19 10:10 PTT (Actin FS) 25.6 SECONDS (25.2-36.5) 09/24/19 10:10 Sodium 134 mmol/L (136-145) L 09/24/19 10:21 Potassium 3.3 mmol/L (3.5-5.1) L 09/24/19 10:21 Chloride 100 mmol/L (98-107) 09/24/19 10:21 Carbon Dioxide 27 mmol/L (21-32) 09/24/19 10:21 Anion Gap 7 MMOL/L (8-16) L 09/24/19 10:21 BUN 19.7 mg/dL (7-18) H 09/24/19 10:21 Creatinine 0.8 mg/dL (0.55-1.3) 09/24/19 10:21 Est GFR (CKD-EPI)AfAm 82.42 09/24/19 10:21 Est GFR (CKD-EPI)NonAf 71.11 09/24/19 10:21 POC Glucometer 157 UNITS (80-120) 09/24/19 11:01 Random Glucose 204 mg/dL (74-106) H 09/24/19 10:21 Lactic Acid 3.0 mmol/L (0.4-2.0) H* 09/24/19 10:21 Calcium 8.3 mg/dL (8.5-10.1) L 09/24/19 10:21 Total Bilirubin 0.3 mg/dL (0.2-1) 09/24/19 10:21 AST 23 U/L (15-37) 09/24/19 10:21 ALT 19 U/L (13-61) 09/24/19 10:21 Alkaline Phosphatase 141 U/L (45-117) H 09/24/19 10:21 Creatine Kinase 174 U/L (26-192) 09/24/19 14:00 Creatine Kinase Index 2.0 % (0.0-5.0) 09/24/19 10:21 CK-MB (CK-2) 3.3 ng/mL (0.5-3.6) 09/24/19 10:21 Troponin I 0.20 ng/ml (0.00-0.05) H 09/24/19 14:00 B-Natriuretic Peptide 2955.1 pg/ml (5-450) H 09/24/19 14:00 Total Protein 6.0 g/dl (6.4-8.2) L 09/24/19 10:21 Albumin 2.5 g/dl (3.4-5.0) L 09/24/19 10:21 Lipase 60 U/L (73-393) L 09/24/19 10:21 Stool Occult Blood Trace (NEGATIVE) 09/24/19 10:03 Blood Type O POSITIVE 09/24/19 12:09 Antibody Screen Negative 09/24/19 12:09 Active Medications Lactated Ringer's (Lactated Ringers Solution) 1,000 ml in 1,000 mls @ 100 mls/hr IV ASDIR ANABEL Potassium Chloride (Potassium Chloride 10 Meq Premix Ivpb -) 10 meq in 100 mls @ 100 mls/hr IVPB Q60M ANABEL Stop: 09/24/19 17:44 Insulin Aspart (Novolog Vial Sliding Scale -) 1 vial SQ ACHS ANABEL; Protocol Ondansetron HCl (Zofran Injection) 4 mg IVPUSH Q4H PRN PRN Reason: NAUSEA AND/OR VOMITING Pantoprazole Sodium (Protonix Iv) 40 mg IVPUSH DAILY ANABEL ASSESSMENT/PLAN: 79 year old with PMH T2DM, and Parkinson's disease presented to the ED with progressive abdominal distention and abdominal pain. Pt complained of anorexia for several days due to feelings of nausea. There was also history of coffee ground emesis, for which pt was placed on protonix. CT and abdominal x-ray done in the ED was suggestive of sigmoid volvulus. GI saw the pt and placed rectal tube for decompression. Abdominal distention improved, but showing signs of re- distending. The patient is being admitted for further management sigmoid volvulus with concern for possible ischemic bowel. #Neuro Parkinson's disease Alert and oriented -Not currently on Sinemet, will resume once tolerating PO. #CV Borderline troponin elevation -Cardio consulted. Borderline troponin elevation and normal CK is not consistent with acute coronary syndrome. ECG is without ischemic changes. -Follow echo #Pulm -Place on NC 2L -Supplemental O2 to keep SpO2 >95% #GI Abdominal distention with concern for ischemic bowel -CT abdomen/pelvis - suggestive of sigmoid volvulus. No evidence of small bowel obstruction. Significant dilation of distal esophagus down the the level of the GE junction. 3.8 cm fluid collection within tortuous distal esophagus. -KUB - coffee allison appearance, dilated sigmoid. Repeat KUB showed improved distention, with rectal tube. -GI consulted. Rectal tube for decompression. -Surgery consulted. May do laparotomy, sigmoid colectomy and colostomy in the event that GI decompression is unsuccessful. Pt is poor candidate for surgery and would likely have poor outcome. -Given Zofran PRN for nausea -Given Protonix IV #Endo T2DM -BGM with ISS #Renal Hypokalemia -Received 10 mEq KCl in ED #ID Abdominal pain r/o infectious etiology. -Given meropenem in ED. -ID consulted. Recommended Ertapenem for coverage, given pt's allergy profile. -Follow WBC -Trend lactate #Ppx -GI: protonix -DVT: SCD #FEN -LR Dispo: We will continue to follow the patient. Thank you for this consultative opportunity. Visit type - Emergency Visit Emergency Visit: Yes ED Registration Date: 09/24/19 Care time: The patient presented to the Emergency Department on the above date and was hospitalized for further evaluation of their emergent condition. - New Patient This patient is new to me today: Yes Date on this admission: 09/27/19 - Critical Care Critical Care patient: Yes Total Critical Care Time (in minutes): 37 Critical Care Statement: The care of this patient involved high complexity decision making to prevent further life threatening deterioration of the patient's condition and/or to evaluate & treat vital organ system(s) failure or risk of failure. ATTENDING PHYSICIAN STATEMENT I saw and evaluated the patient. I reviewed the resident's note and discussed the case with the resident. I agree with the resident's findings and plan as documented. SUBJECTIVE: OBJECTIVE: ASSESSMENT AND PLAN:
--- NOTE | 2019-09-24 16:26 | PN ---
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 (short form) - Note 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: ID consult dictated imp/reccd 79 yo NHR admitted with vomiting, abdominal distension for several days- perhaps a week or two per patient she is not sure when she last had a BM, has chronic constipation'denies fevers or chills no urinary symptoms had ct scan in ED and was seen by surgery and GI- rectal tube placed for sigmoid volvulus she has multiple antiibotic allergies and was started on meropenem for bowel coverage Sigmoid volvulus Multiple antibioitic allergies DNR/DNR management of volvolus per surgery/GI will switch to to ertapenem - this should be adequate bowel coverage d/w ICU resident Problem List - Problems (1) Sigmoid volvulus Code(s): K56.2 - VOLVULUS (2) Allergy to multiple antibiotics Code(s): Z88.1 - ALLERGY STATUS TO OTHER ANTIBIOTIC AGENTS STATUS
--- NOTE | 2019-09-24 18:01 | CONS ---
DATE OF CONSULTATION: DATE OF DICTATION: 09/24/2019 INFECTIOUS DISEASE CONSULTATION HISTORY OF PRESENT ILLNESS: This is a 79-year-old woman who is admitted from [facility]. She states she has been a resident there for 25 years. She has progressive abdominal distention. She has been vomiting. She reports this has been going on she thinks for 1-2 weeks; per the chart, since the . She had some coffee ground emesis. She had a CAT scan done in the ER today that was consistent with a sigmoid volvulus. She had a rectal tube placed with some improvement, though she remains distended. She reports not feeling well, reports the vomiting. She has no fevers, chills. She reports she has not had a bowel movement. She had a history of chronic constipation. She does not recall when she last passed any stool. She denies passing any gas as well. She notes she has been vomiting. She has no problems urinating. PAST MEDICAL HISTORY: Notable for history of type II diabetes, atrophic kidneys, cystitis, UTI, Parkinson disease, hypertension, gait disorder, hyperlipidemia. She had a left hip, partial left hip replacement. She has a history of syncope, compression fractures. She has a history of hyperlipidemia. ALLERGIES: She is allergic to LEVOFLOXACIN, PENICILLIN, SULFA, as well as CEPHALEXIN and TRIMETHOPRIM. She is not aware of any of the nature of any of these allergies. MEDICATION: Her medications include: 1. Acetaminophen. 2. Lisinopril. 3. Pantoprazole. SOCIAL HISTORY: She is a long-term resident of [facility]. She has not been hospitalized in many years. 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 There is no history of cigarette, alcohol, or substance use. She spends most of her time in a wheelchair. She has minimal ambulation with assistance with a walker. REVIEW OF SYSTEMS: Notable for abdominal distention and discomfort as well as the vomiting. There are no respiratory symptoms. She has no cough or shortness of breath. PHYSICAL EXAMINATION: General: She is an elderly woman. She follows commands. In no acute distress. Vital Signs: Temperature 98.2, pulse 94, blood pressure 176/85, respiratory rate 22, she is saturating 98% on room air. HEENT: Normocephalic. Eyes are anicteric. She has no thrush or pharyngitis. Neck: Supple. Lungs: Diminished breath sounds at the bases. Heart: Regular rate and rhythm. Abdomen: Distended. She has minimal bowel sounds and soft. Extremities: Without edema. Genitourinary: She has a rectal tube in place. LABORATORY: Notable for white count of 12.3, hemoglobin 12.5, platelets are 371. BUN and creatinine are 19 and 0.8, lactic acid was 3, repeat is 2.6, alkaline phosphatase is 141. Urinalysis is not done. Stool is trace positive. COVID-19 PCR is pending. No cultures have been sent. IMPRESSION: In summary, this is an elderly woman from the correction with sigmoid volvulus, multiple ANTIBIOTIC allergies, do not resuscitate/do not intubate. Management of her volvulus per surgery and gastrointestinal. Would get blood cultures and would switch to ertapenem, which should be appropriate. She received a dose of meropenem in the ER given her multiple allergies and the fact she has tolerated carbapenem, would continue her on ertapenem 1 g daily. Case was discussed with intensive care unit resident. WINNIE HINES M.D. [id number]
[2019-09-24] MEDS: INSULIN SLIDING SCALE (NOVOLOG) 1 VIAL SQ SCH ×2 (18:19→21:41)
--- NOTE | 2019-09-24 18:19 | CON.GI ---
Consult Consult Specialty:: GI - History of Present Illness History of Present Illness: Asked to see patient because of abdominal distention because of sigmoid volvulus. She was seen in the ER and rectal tube was inserted. It was a successful decompression as patient passed a lot of gas. 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 Cardio/Vascular: Yes: HTN, Hyperlipdemia ...: No Endocrine: Yes: Diabetes Mellitus - Alcohol/Substance Use Hx Alcohol Use: No - Smoking History Smoking history: Never smoked Have you smoked in the past 12 months: No - Social History Usual Living Arrangement: Long Term ADL: Support Services History of Recent Travel: No Home Medications - Allergies Allergies/Adverse Reactions: Allergies Allergy/AdvReac Type Severity Reaction Status Date / Time levofloxacin Allergy Verified 09/24/19 10:27 Penicillins Allergy Verified 09/24/19 14:47 Sulfa (Sulfonamide Allergy Verified 09/24/19 10:27 Antibiotics) trimethoprim Allergy Verified 07/18/13 16:30 cephalexin [Cephalexin] AdvReac Verified 09/24/19 10:27 - Home Medications Home Medications: Ambulatory Orders Acetaminophen [Tylenol .Regular Strength -] 650 mg PO Q6H PRN 07/18/13 Insulin (Novolog) [Novolog Flexpen -] 0 units SQ ASDIR 07/18/13 Insulin (Novolog) [Novolog Flexpen -] 3 units SQ ASDIR 07/18/13 Lisinopril [Prinivil -] 2.5 mg PO DAILY 07/18/13 Polyethylene Glycol 3350 [Miralax 255 gm Btl -] 17 gm PO DAILY 07/18/13 Insulin Detemir [Levemir Flextouch] 10 unit SQ AM 09/24/19 Lactulose (Oral Use) [Cephulac -] 20 gm PO DAILY 09/24/19 Ondansetron HCl/Pf [Ondansetron HCl 4 mg/2 ml Vial] 4 mg IM Q8H 09/24/19 Pantoprazole Sodium [Protonix] 40 mg IV DAILY 09/24/19 Potassium Chloride 20 meq PO DAILY 09/24/19 Simethicone [Gas Relief 80] 80 mg PO BID PRN 09/24/19 Physical Exam-GI Vital Signs: Vital Signs Temperature 98.2 F 09/24/19 15:40 Pulse Rate 80 09/24/19 15:40 Respiratory Rate 14 09/24/19 15:40 Blood Pressure 130/80 09/24/19 15:40 O2 Sat by Pulse Oximetry (%) 98 09/24/19 15:40 Constitutional: Yes: Well Nourished Eyes: Yes: Conjunctiva Clear, Occular Prosthesis Neck: Yes: Supple, Tenderness Respiratory: Yes: CTA Bilaterally Gastrointestinal Inspection: Yes: Distention (--resolved after decopression) ...Palpate: Yes: Soft. No: Firm/Rigid, Guarding, Hepatomegaly, Mass, Pulsatile Mass, Splenomegaly, Tenderness ...Percussion: Yes: Tympanitic (mild after decompression) Labs: CBC, BMP 09/24/19 10:10 09/24/19 10:21 INR, PTT INR 0.91 (0.83-1.09) 09/24/19 10:10 CBCD WBC 12.3 K/mm3 (4.0-10.0) H 09/24/19 10:10 RBC 3.96 M/mm3 (3.60-5.2) 09/24/19 10:10 Hgb 12.5 GM/dL (10.7-15.3) 09/24/19 10:10 Hct 38.1 % (32.4-45.2) 09/24/19 10:10 MCV 96.2 fl (80-96) H 09/24/19 10:10 MCHC 32.9 g/dl (32.0-36.0) 09/24/19 10:10 RDW 14.5 % (11.6-15.6) 09/24/19 10:10 Plt Count 371 K/MM3 (134-434) 09/24/19 10:10 MPV 10.1 fl (7.5-11.1) 09/24/19 10:10 CMP Sodium 134 mmol/L (136-145) L 09/24/19 10:21 Potassium 3.3 mmol/L (3.5-5.1) L 09/24/19 10:21 Chloride 100 mmol/L (98-107) 09/24/19 10:21 Carbon Dioxide 27 mmol/L (21-32) 09/24/19 10:21 Anion Gap 7 MMOL/L (8-16) L 09/24/19 10:21 BUN 19.7 mg/dL (7-18) H 09/24/19 10:21 Creatinine 0.8 mg/dL (0.55-1.3) 09/24/19 10:21 Calcium 8.3 mg/dL (8.5-10.1) L 09/24/19 10:21 Total Bilirubin 0.3 mg/dL (0.2-1) 09/24/19 10:21 AST 23 U/L (15-37) 09/24/19 10:21 ALT 19 U/L (13-61) 09/24/19 10:21 Alkaline Phosphatase 141 U/L (45-117) H 09/24/19 10:21 Total Protein 6.0 g/dl (6.4-8.2) L 09/24/19 10:21 Albumin 2.5 g/dl (3.4-5.0) L 09/24/19 10:21 Assessment/Plan A> sigmoid volvulus s/p decompression r> may have clear liquids advance diet as tolerated will need second opinion regarding conservative management which will result in recurrent volvulus vs surgical option once medically optimized and cleared for surgery IV hydration Dr Sánchez will follow in am and Dr Sanders over the weekend.
[2019-09-24] MEDS ORDERED: DEXTROSE 5%-WATER 100 ML IVPB IVPB ONE (20:04)
[2019-09-24] MEDS ORDERED: DEXTROSE 50%-WATER 25 GM/50 ML DISP.SYRIN ONE (20:09)
[2019-09-24] MEDS ORDERED: PT OWN MED DRAWER 7, Y5N ONE (20:47)
[2019-09-24] MEDS: CHLORHEXIDINE GLUCONATE 4% CLEANSER FOR DECOLONIZATION TP SCH (21:36)
[2019-09-24] MEDS: ERTAPENEM SODIUM 1 GM in SODIUM CHLORIDE 50 ML IVPB SCH (21:39)
[2019-09-24] MEDS: MUPIROCIN 2% TOPICAL OINTMENT FOR DECOLONIZATION NS SCH (21:39)
[2019-09-24] MEDS: DEXTROSE 5%-LACTATED RINGERS 1,000 ML IV SCH (22:00)
--- NOTE | 2019-09-25 06:24 | PN ---
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, Physician Chief Complaint: asleep TELE: SR, Sinus tach, Rare VPCs Not requiring O2 K+ low, being repleted. History of Present Illness: Volvulus Abd pain Equivocal TnI DNR/DNI - Current Medication List Current Medications: Active Medications Chlorhexidine Gluconate (Hibiclens For Decolonization -) 1 applic TP HS [facility] Last Admin: 09/24/19 21:36 Dose: 1 applic Documented by: Ertapenem 1 gm/ Sodium (Chloride) 50 mls @ 100 mls/hr IVPB HS [facility] Last Admin: 09/24/19 21:39 Dose: 100 mls/hr Documented by: Dextrose/Lactated Ringer's (D5-Lr -) 1,000 mls @ 125 mls/hr IV ASDIR [facility] Last Admin: 09/24/19 22:00 Dose: 125 mls/hr Documented by: Insulin Aspart (Novolog Vial Sliding Scale -) 1 vial SQ [facility]; Protocol Last Admin: 09/24/19 21:41 Dose: Not Given Documented by: Mupirocin (Bactroban Ointment (For Decolonization) -) 1 applic NS BID [facility] Stop: 09/29/19 21:59 Last Admin: 09/24/19 21:39 Dose: 1 applic Documented by: Ondansetron HCl (Zofran Injection) 4 mg IVPUSH Q4H PRN PRN Reason: NAUSEA AND/OR VOMITING Pantoprazole Sodium (Protonix Iv) 40 mg IVPUSH DAILY [facility] - Objective Vital Signs: Vital Signs Temperature 98.2 F 09/25/19 02:00 Pulse Rate 89 09/25/19 06:00 Respiratory Rate 16 09/25/19 06:00 Blood Pressure 178/78 H 09/25/19 06:00 O2 Sat by Pulse Oximetry (%) 89 L 09/25/19 06:00 Constitutional: Yes: No Distress, Calm Eyes: Yes: Conjunctiva Clear Cardiovascular: Yes: Regular Rate and Rhythm Respiratory: Yes: CTA Bilaterally (clear anteriorly and laterally) Gastrointestinal: Yes: Soft (NT) Edema: No (venodynes) Labs: CBC, BMP 09/24/19 10:10 09/24/19 10:21 INR, PTT INR 0.91 (0.83-1.09) 09/24/19 10:10 Laboratory Tests 09/24/19 09/24/1909/23/20 10:10 10:21 14:00 WBC Plt Count PT with INR 10.70 Sodium Potassium Creatinine Troponin I 0.20 H 0.20 H 09/24/19 09/25/19 09/25/19 21:25 06:06 06:06 WBC 15.7 H Plt Count 332 PT with INR Sodium 138 Potassium 3.0 L Creatinine 0.6 Troponin I 0.18 H - ....Imaging EKG: Image Reviewed Assessment/Plan ecg: sr nl intervals no ischemic changes cxr: no sig chf a/p: 79 f hx htn, hld, dm, [place] [facility] [place]. abd pain, sigmoid volvulus: -no signs acs. -cont tx of volvulus per GI htn: -at times above goal, follow BP trend positive trop: -borderline trop elevation with flat trend and nl ck, not c/w acs. ecg w/o ischemic changes. -echo pending
[2019-09-25] MEDS: INSULIN SLIDING SCALE (NOVOLOG) 1 VIAL SQ SCH ×4 (06:45→21:11)
[2019-09-25 07:01] LABS: BASO % 0.1 % (0-2.0); EOS % 1.3 % (0-4.5); HEMATOCRIT 37.1 % (32.4-45.2); HEMOGLOBIN 11.9 GM/dL (10.7-15.3); LYMPH % 4.1 % (8-40); MCH 30.7 pg (25.7-33.7); MCHC 32.2 g/dl (32.0-36.0); MEAN CELL VOLUME 95.3 fl (80-96); MONO % 5.9 % (3.8-10.2); NEUT % 88.6 % (42.8-82.8); PLATELET COUNT 332 K/MM3 (134-434); RBC 3.89 M/mm3 (3.60-5.2); RDW 14.7 % (11.6-15.6); WHITE BLOOD COUNT 15.7 K/mm3 (4.0-10.0)
[2019-09-25 07:46] LABS: ALBUMIN 2.3 g/dl (3.4-5.0); BILIRUBIN,TOTAL 0.3 mg/dL (0.2-1); CALCIUM 8.8 mg/dL (8.5-10.1); CREATININE 0.6 mg/dL (0.55-1.3); PHOSPHOROUS 1.9 mg/dL (2.5-4.9); TOT PROT 5.4 g/dl (6.4-8.2)
[2019-09-25] MEDS ORDERED: NAPH,MB-DB/K PH,MBDB POWDER PACKET PO ONE (08:35)
--- NOTE | 2019-09-25 08:50 | PN ---
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, Physician Chief Complaint: Over night after decompression the patient abdominal distention improved. Lactic acid decreased 2.1. Still nauseated intermittently. History of Present Illness: DM type 2, previously on Insulin. Atrophic kidney, history of cystitis, uti, hydronephrosis. Parkinson's disease. HTN Gait disorder. Falling. HLD, Multiple allergy. DNR/DNI Left hip fracture Syncope Compression fracture L1 Hydrocephalus on CT scan 2014 - Current Medication List Current Medications: Active Medications Chlorhexidine Gluconate (Hibiclens For Decolonization -) 1 applic TP HS [facility] Last Admin: 09/24/19 21:36 Dose: 1 applic Documented by: Ertapenem 1 gm/ Sodium (Chloride) 50 mls @ 100 mls/hr IVPB HS [facility] Last Admin: 09/24/19 21:39 Dose: 100 mls/hr Documented by: Dextrose/Lactated Ringer's (D5-Lr -) 1,000 mls @ 125 mls/hr IV ASDIR [facility] Last Admin: 09/24/19 22:00 Dose: 125 mls/hr Documented by: Potassium Phosphate 30 mm/ (Dextrose) 260 mls @ 43.333 mls/hr IVPB ONCE ONE Stop: 09/25/19 14:59 Insulin Aspart (Novolog Vial Sliding Scale -) 1 vial SQ ACHS [facility]; Protocol Last Admin: 09/25/19 06:45 Dose: Not Given Documented by: Mupirocin (Bactroban Ointment (For Decolonization) -) 1 applic NS BID [facility] Stop: 09/29/19 21:59 Last Admin: 09/24/19 21:39 Dose: 1 applic Documented by: Ondansetron HCl (Zofran Injection) 4 mg IVPUSH Q4H PRN PRN Reason: NAUSEA AND/OR VOMITING Pantoprazole Sodium (Protonix Iv) 40 mg IVPUSH DAILY [facility] - Objective Vital Signs: Vital Signs Temperature 97.2 F L 09/25/19 06:00 Pulse Rate 89 09/25/19 06:00 Respiratory Rate 16 09/25/19 06:00 Blood Pressure 178/78 H 09/25/19 06:00 O2 Sat by Pulse Oximetry (%) 89 L 09/25/19 06:00 Constitutional: Yes: Anxious, Moderate Distress, Pallor. No: Ashen, Obese Eyes: Yes: Conjunctiva Clear, EOM Intact HENT: Yes: Atraumatic, Normocephalic Neck: Yes: Supple, Trachea Midline Cardiovascular: Yes: Pulse Irregular, S1, S2. No: Bruit, JVD Respiratory: Yes: CTA Bilaterally, On Nasal O2 Gastrointestinal: Yes: Soft. No: Vomiting ...Rectal Exam: Yes: Deferred, Other (Rectal tube with small amount of liquid stool) Genitourinary: No: CVA Tenderness - Left, CVA Tenderness - Right Breast(s): Yes: WNL Musculoskeletal: No: Back Pain Extremities: No: Amputation, Calf Tenderness, Cold Edema: No Peripheral Pulses WNL: No Neurological: Yes: Tremors (Parkinson's disease) ...Motor Strength: WNL Psychiatric: Yes: WNL Labs: CBC, BMP 09/25/19 06:06 09/25/19 06:06 INR, PTT INR 0.91 (0.83-1.09) 09/24/19 10:10 Laboratory Results - last 24 hr 09/24/19 09/24/19 09/24/19 10:03 10:10 10:10 WBC 12.3 H RBC 3.96 Hgb 12.5 Hct 38.1 MCV 96.2 H MCH 31.6 MCHC 32.9 RDW 14.5 Plt Count 371 MPV 10.1 Absolute Neuts (auto) 10.9 H Neutrophils % 88.3 H Lymphocytes % 5.9 L Monocytes % 5.3 Eosinophils % 0.4 Basophils % 0.1 Nucleated RBC % 0 PT with INR 10.70 INR 0.91 PTT (Actin FS) 25.6 Sodium Potassium Chloride Carbon Dioxide Anion Gap BUN Creatinine Est GFR (CKD-EPI)AfAm Est GFR (CKD-EPI)NonAf POC Glucometer Random Glucose Lactic Acid Calcium Phosphorus Magnesium Total Bilirubin AST ALT Alkaline Phosphatase Creatine Kinase Creatine Kinase Index CK-MB (CK-2) Troponin I B-Natriuretic Peptide Total Protein Albumin Lipase Stool Occult Blood Trace Blood Type Antibody Screen 09/24/19 09/24/19 09/24/19 10:10 10:21 10:21 WBC RBC Hgb Hct MCV MCH MCHC RDW Plt Count MPV Absolute Neuts (auto) Neutrophils % Lymphocytes % Monocytes % Eosinophils % Basophils % Nucleated RBC % PT with INR INR PTT (Actin FS) Sodium 134 L Potassium 3.3 L Chloride 100 Carbon Dioxide 27 Anion Gap 7 L BUN 19.7 H Creatinine 0.8 Est GFR (CKD-EPI)AfAm 82.42 Est GFR (CKD-EPI)NonAf 71.11 POC Glucometer Random Glucose 204 H Lactic Acid 3.0 H* Calcium 8.3 L Phosphorus Magnesium Total Bilirubin 0.3 AST 23 ALT 19 Alkaline Phosphatase 141 H Creatine Kinase 164 Creatine Kinase Index 2.0 CK-MB (CK-2) 3.3 Troponin I 0.20 H B-Natriuretic Peptide Total Protein 6.0 L Albumin 2.5 L Lipase Stool Occult Blood Blood Type Cancelled Antibody Screen Cancelled 09/24/19 09/24/19 09/24/19 10:21 11:01 12:09 WBC RBC Hgb Hct MCV MCH MCHC RDW Plt Count MPV Absolute Neuts (auto) Neutrophils % Lymphocytes % Monocytes % Eosinophils % Basophils % Nucleated RBC % PT with INR INR PTT (Actin FS) Sodium Potassium Chloride Carbon Dioxide Anion Gap BUN Creatinine Est GFR (CKD-EPI)AfAm Est GFR (CKD-EPI)NonAf POC Glucometer 157 Random Glucose Lactic Acid Calcium Phosphorus Magnesium Total Bilirubin AST ALT Alkaline Phosphatase Creatine Kinase Creatine Kinase Index CK-MB (CK-2) Troponin I B-Natriuretic Peptide Total Protein Albumin Lipase 60 L Stool Occult Blood Blood Type O POSITIVE Antibody Screen Negative 09/24/19 09/24/19 09/24/19 14:00 15:25 17:41 WBC RBC Hgb Hct MCV MCH MCHC RDW Plt Count MPV Absolute Neuts (auto) Neutrophils % Lymphocytes % Monocytes % Eosinophils % Basophils % Nucleated RBC % PT with INR INR PTT (Actin FS) Sodium Potassium Chloride Carbon Dioxide Anion Gap BUN Creatinine Est GFR (CKD-EPI)AfAm Est GFR (CKD-EPI)NonAf POC Glucometer 57 Random Glucose Lactic Acid 2.6 H* Calcium Phosphorus Magnesium Total Bilirubin AST ALT Alkaline Phosphatase Creatine Kinase 174 Creatine Kinase Index 2.0 CK-MB (CK-2) 3.6 Troponin I 0.20 H B-Natriuretic Peptide 2955.1 H Total Protein Albumin Lipase Stool Occult Blood Blood Type Antibody Screen 09/24/19 09/24/19 09/24/19 19:16 20:07 21:25 WBC RBC Hgb Hct MCV MCH MCHC RDW Plt Count MPV Absolute Neuts (auto) Neutrophils % Lymphocytes % Monocytes % Eosinophils % Basophils % Nucleated RBC % PT with INR INR PTT (Actin FS) Sodium Potassium Chloride Carbon Dioxide Anion Gap BUN Creatinine Est GFR (CKD-EPI)AfAm Est GFR (CKD-EPI)NonAf POC Glucometer 43 Random Glucose Lactic Acid 2.1 H Calcium Phosphorus Magnesium Total Bilirubin AST ALT Alkaline Phosphatase Creatine Kinase Creatine Kinase Index CK-MB (CK-2) Troponin I 0.18 H B-Natriuretic Peptide Total Protein Albumin Lipase Stool Occult Blood Blood Type Antibody Screen 09/24/19 09/25/19 09/25/19 21:39 06:06 06:06 WBC 15.7 H RBC 3.89 Hgb 11.9 Hct 37.1 MCV 95.3 MCH 30.7 MCHC 32.2 RDW 14.7 Plt Count 332 MPV 10.0 Absolute Neuts (auto) 13.9 H Neutrophils % 88.6 H Lymphocytes % 4.1 L D Monocytes % 5.9 Eosinophils % 1.3 D Basophils % 0.1 Nucleated RBC % 0 PT with INR INR PTT (Actin FS) Sodium 138 Potassium 3.0 L Chloride 101 Carbon Dioxide 27 Anion Gap 10 BUN 14.0 Creatinine 0.6 Est GFR (CKD-EPI)AfAm 101.90 Est GFR (CKD-EPI)NonAf 87.92 POC Glucometer 55 Random Glucose 90 Lactic Acid Calcium 8.8 Phosphorus 1.9 L Magnesium 2.0 Total Bilirubin 0.3 AST 24 ALT 18 Alkaline Phosphatase 128 H Creatine Kinase Creatine Kinase Index CK-MB (CK-2) Troponin I B-Natriuretic Peptide Total Protein 5.4 L Albumin 2.3 L Lipase Stool Occult Blood Blood Type Antibody Screen 09/25/19 06:44 WBC RBC Hgb Hct MCV MCH MCHC RDW Plt Count MPV Absolute Neuts (auto) Neutrophils % Lymphocytes % Monocytes % Eosinophils % Basophils % Nucleated RBC % PT with INR INR PTT (Actin FS) Sodium Potassium Chloride Carbon Dioxide Anion Gap BUN Creatinine Est GFR (CKD-EPI)AfAm Est GFR (CKD-EPI)NonAf POC Glucometer 82 Random Glucose Lactic Acid Calcium Phosphorus Magnesium Total Bilirubin AST ALT Alkaline Phosphatase Creatine Kinase Creatine Kinase Index CK-MB (CK-2) Troponin I B-Natriuretic Peptide Total Protein Albumin Lipase Stool Occult Blood Blood Type Antibody Screen - ....Imaging X-ray: Image Reviewed Problem List - Problems (1) Sigmoid volvulus Assessment/Plan: Dr Jeffery was consulted, Spoke to PA today. GI consulted-spoke to Dr Sánchez-colonoscopy/GGE. Patient agrees. Ertapenem for bacterial translocation. WBC 15 K IV fluids. NPO Rectal tube. 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 Cardiac enzymes. Cardiology consult, ECHO Troponin 0.2-0.2 Elevated BNP Code(s): I25.10 - ATHSCL HEART DISEASE OF [place] CORONARY ARTERY W/O ANG PCTRS (5) Hypokalemia Assessment/Plan: Replace K IV NPO. Code(s): E87.6 - HYPOKALEMIA
[2019-09-25] MEDS ORDERED: POTASSIUM PHOSPHATE 30 MM in DEXTROSE 5%-WATER - 250 ML IVPB ONE (09:00)
[2019-09-25] MEDS: PANTOPRAZOLE SODIUM 40 MG VIAL IVPUSH SCH (09:41)
[2019-09-25] MEDS: ONDANSETRON 4 MG/2 ML VIAL IVPUSH PRN ×2 (09:42→23:20)
[2019-09-25] MEDS: MUPIROCIN 2% TOPICAL OINTMENT FOR DECOLONIZATION NS SCH ×2 (10:25→21:19)
--- NOTE | 2019-09-25 10:34 | EKG ---
Test Reason : Blood Pressure : / mmHG Vent. Rate : 097 BPM Atrial Rate : 097 BPM P-R Int : 180 ms QRS Dur : 092 ms QT Int : 378 ms P-R-T Axes : 052 -64 072 degrees QTc Int : 480 ms NORMAL SINUS RHYTHM LEFT ANTERIOR FASCICULAR BLOCK SEPTAL INFARCT (CITED ON OR BEFORE 24-SEP-2019) INFERIOR INFARCT (CITED ON OR BEFORE 24-SEP-2019) ABNORMAL ECG WHEN COMPARED WITH ECG OF 24-SEP-2019 14:11, QUESTIONABLE CHANGE IN INITIAL FORCES OF ANTEROLATERAL LEADS Confirmed by JHOAN CHAN MD ([id number]) on 09/25/2019 10:33:46 AM Referred By: DELFIN Confirmed By:JHOAN CHAN MD
--- NOTE | 2019-09-25 10:35 | EKG ---
Test Reason : Blood Pressure : / mmHG Vent. Rate : 103 BPM Atrial Rate : 103 BPM P-R Int : 186 ms QRS Dur : 076 ms QT Int : 344 ms P-R-T Axes : 050 -51 065 degrees QTc Int : 450 ms SINUS TACHYCARDIA LEFT AXIS DEVIATION LOW VOLTAGE QRS INFERIOR INFARCT (CITED ON OR BEFORE 24-SEP-2019) POSSIBLE ANTEROLATERAL INFARCT (CITED ON OR BEFORE 24-SEP-2019) ABNORMAL ECG WHEN COMPARED WITH ECG OF 24-SEP-2019 10:41, QUESTIONABLE CHANGE IN INITIAL FORCES OF ANTERIOR LEADS Confirmed by JHOAN CHAN MD ([id number]) on 09/25/2019 10:35:14 AM Referred By: Confirmed By:JHOAN CHAN MD
--- NOTE | 2019-09-25 11:20 | PN ---
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 (short form) - Note 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: feels improved no fevers Vital Signs Period Temp Pulse Resp BP Sys/Grossman Pulse Ox Last 24 Hr 97.2 F-98.4 F 80-105 11-22 130-178/63-85 89-99 cor-rrr lungs decreased bs at bases abd soft,nt, less distension ext no edema +rectal tube CBC, BMP 09/25/19 06:06 09/25/19 06:06 lactic acid 2.1 imp/reccd Sigmoid volvulus Multiple antibioitic allergies DNR/DNR management of volvolus per surgery/GI continue ertapenem f/u cultures Problem List - Problems (1) Sigmoid volvulus Code(s): K56.2 - VOLVULUS (2) Allergy to multiple antibiotics Code(s): Z88.1 - ALLERGY STATUS TO OTHER ANTIBIOTIC AGENTS STATUS
[2019-09-25] MEDS ORDERED: PROPOFOL 20 ML ONE ×4 (12:15)
[2019-09-25] MEDS ORDERED: SUCCINYLCHOLINE CHLORIDE 200 MG/10 ML SYRINGE ONE (12:16)
--- NOTE | 2019-09-25 13:40 | PN ---
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 (short form) - Note 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: GI Procedure NOte ( covering the [facility] GI service): Please see partial colonoscopy report. Sigmoid volvuluis detorted. Would proceed with CT already scheduled. Clear liquids. Advance diet as tolerated. Dr Sanders will be covering weekend.
[2019-09-25] MEDS: DEXTROSE 5%-LACTATED RINGERS 1,000 ML IV SCH (13:51)
--- NOTE | 2019-09-25 14:21 | PN ---
Teaching Attending Note Name of Resident: Neema Juárez ATTENDING PHYSICIAN STATEMENT I saw and evaluated the patient. I reviewed the resident's note and discussed the case with the resident. I agree with the resident's findings and plan as documented. SUBJECTIVE: Patient seen and examined in the ICU. Awake and alert. Reports abdominal symptoms are better today. No CP or SOB. Imaging: improving obstruction pattern Intake & Output 09/22/19 09/23/19 09/24/19 09/25/19 23:59 23:59 23:59 23:59 Intake Total 1200 150 Balance 1200 150 Weight 130 lb 129 lb 13.636 oz Last Vital Signs Temp Pulse Resp BP Pulse Ox 97.2 F L 89 17 173/75 H 94 L 09/25/19 10:00 09/25/19 12:00 09/25/19 12:00 09/25/19 12:00 09/25/19 08:00 Active Medications Chlorhexidine Gluconate (Hibiclens For Decolonization -) 1 applic TP HS [facility] Last Admin: 09/24/19 21:36 Dose: 1 applic Documented by: Ertapenem 1 gm/ Sodium (Chloride) 50 mls @ 100 mls/hr IVPB HS [facility] Last Admin: 09/24/19 21:39 Dose: 100 mls/hr Documented by: Dextrose/Lactated Ringer's (D5-Lr -) 1,000 mls @ 125 mls/hr IV ASDIR [facility] Last Admin: 09/25/19 13:51 Dose: 125 mls/hr Documented by: Potassium Phosphate 30 mm/ (Dextrose) 260 mls @ 43.333 mls/hr IVPB ONCE ONE Stop: 09/25/19 14:59 Last Admin: 09/25/19 09:42 Dose: 43.333 mls/hr Documented by: Insulin Aspart (Novolog Vial Sliding Scale -) 1 vial SQ ACHS [facility]; Protocol Last Admin: 09/25/19 13:51 Dose: 2 units Documented by: Mupirocin (Bactroban Ointment (For Decolonization) -) 1 applic NS BID [facility] Stop: 09/29/19 21:59 Last Admin: 09/25/19 10:25 Dose: 1 applic Documented by: Ondansetron HCl (Zofran Injection) 4 mg IVPUSH Q4H PRN PRN Reason: NAUSEA AND/OR VOMITING Last Admin: 09/25/19 09:42 Dose: 4 mg Documented by: Pantoprazole Sodium (Protonix Iv) 40 mg IVPUSH DAILY [facility] Last Admin: 09/25/19 09:41 Dose: 40 mg Documented by: GENERAL: Awake, alert, weak appearing but in NAD HEENT: NCAT, EOMI. LUNGS: Breath sounds equal, clear to auscultation bilaterally HEART: Normal S1 and S2 without murmur. Regular rate and rhythm ABDOMEN: Soft, nontender, slightly distended, normoactive bowel sounds, no guarding. No scars. EXTREMITIES: No edema, well-perfused. SKIN: Warm, dry. Laboratory Results - last 24 hr 09/24/19 09/24/19 09/24/19 14:00 15:25 17:41 WBC RBC Hgb Hct MCV MCH MCHC RDW Plt Count MPV Absolute Neuts (auto) Neutrophils % Lymphocytes % Monocytes % Eosinophils % Basophils % Nucleated RBC % Sodium Potassium Chloride Carbon Dioxide Anion Gap BUN Creatinine Est GFR (CKD-EPI)AfAm Est GFR (CKD-EPI)NonAf POC Glucometer 57 Random Glucose Hemoglobin A1c % Lactic Acid 2.6 H* Calcium Phosphorus Magnesium Total Bilirubin AST ALT Alkaline Phosphatase Creatine Kinase 174 Creatine Kinase Index 2.0 CK-MB (CK-2) 3.6 Troponin I 0.20 H B-Natriuretic Peptide 2955.1 H Total Protein Albumin 09/24/19 09/24/19 09/24/19 19:16 20:07 21:25 WBC RBC Hgb Hct MCV MCH MCHC RDW Plt Count MPV Absolute Neuts (auto) Neutrophils % Lymphocytes % Monocytes % Eosinophils % Basophils % Nucleated RBC % Sodium Potassium Chloride Carbon Dioxide Anion Gap BUN Creatinine Est GFR (CKD-EPI)AfAm Est GFR (CKD-EPI)NonAf POC Glucometer 43 Random Glucose Hemoglobin A1c % Lactic Acid 2.1 H Calcium Phosphorus Magnesium Total Bilirubin AST ALT Alkaline Phosphatase Creatine Kinase Creatine Kinase Index CK-MB (CK-2) Troponin I 0.18 H B-Natriuretic Peptide Total Protein Albumin 09/24/19 09/25/19 09/25/19 21:39 06:06 06:06 WBC 15.7 H RBC 3.89 Hgb 11.9 Hct 37.1 MCV 95.3 MCH 30.7 MCHC 32.2 RDW 14.7 Plt Count 332 MPV 10.0 Absolute Neuts (auto) 13.9 H Neutrophils % 88.6 H Lymphocytes % 4.1 L D Monocytes % 5.9 Eosinophils % 1.3 D Basophils % 0.1 Nucleated RBC % 0 Sodium 138 Potassium 3.0 L Chloride 101 Carbon Dioxide 27 Anion Gap 10 BUN 14.0 Creatinine 0.6 Est GFR (CKD-EPI)AfAm 101.90 Est GFR (CKD-EPI)NonAf 87.92 POC Glucometer 55 Random Glucose 90 Hemoglobin A1c % Lactic Acid Calcium 8.8 Phosphorus 1.9 L Magnesium 2.0 Total Bilirubin 0.3 AST 24 ALT 18 Alkaline Phosphatase 128 H Creatine Kinase Creatine Kinase Index CK-MB (CK-2) Troponin I B-Natriuretic Peptide Total Protein 5.4 L Albumin 2.3 L 09/25/19 09/25/19 09/25/19 06:06 06:44 13:39 WBC RBC Hgb Hct MCV MCH MCHC RDW Plt Count MPV Absolute Neuts (auto) Neutrophils % Lymphocytes % Monocytes % Eosinophils % Basophils % Nucleated RBC % Sodium Potassium Chloride Carbon Dioxide Anion Gap BUN Creatinine Est GFR (CKD-EPI)AfAm Est GFR (CKD-EPI)NonAf POC Glucometer 82 253 Random Glucose Hemoglobin A1c % 8.9 H Lactic Acid Calcium Phosphorus Magnesium Total Bilirubin AST ALT Alkaline Phosphatase Creatine Kinase Creatine Kinase Index CK-MB (CK-2) Troponin I B-Natriuretic Peptide Total Protein Albumin ASSESSMENT/PLAN: Resolving suspected Volvulus DM Parkinson's disease History of coffee ground emesis (+) Troponin IVF Empiric ABX Supplemental O2 as needed Aspiration precautions VTE prophylaxis Follow H & H PPI Floor Dr Perez
[2019-09-25] MEDS ORDERED: POTASSIUM CHLORIDE ORAL LIQUID 20 MEQ/15 ML PO ONE (14:40)
[2019-09-25] MEDS ORDERED: LABETALOL HCL 5 MG/1 ML (100MG/20 ML VIAL) IVPUSH ONE (14:48)
[2019-09-25 14:51] LABS: EPI CELLS >36 /uL (0-25.1); HYALINE CASTS 4 /uL (0-3.1); PH,URINE 5.5 (5.0-8.0); URINE APPEARANCE CLEAR; URINE BACTERIA 39 /uL (0-1359); URINE BILIRUBIN NEGATIVE (NEGATIVE); URINE COLOR YELLOW; URINE GLUCOSE (UA) 1+ (NEGATIVE); URINE KETONE NEGATIVE (NEGATIVE); URINE LEUK ESTERASE 2+ (NEGATIVE); URINE NITRITE NEGATIVE (NEGATIVE); URINE PROTEIN TRACE (NEGATIVE); URINE RBC 17 /uL (0-23.9); URINE UROBILINOGEN 0.2 mg/dL (0.2-1.0); URINE WBC 348 /uL (0-25.8)
--- NOTE | 2019-09-25 15:02 | ECHO ---
Version: 1 Name: LATONIA DUVAL Exam: Adult Echocardiogram Study Date: 09/25/2019, 2:00 PM Age: 79 Years MMode/2D Measurements & Calculations IVSd: 1.18 cm LVIDs: 2.12 cm LVIDd: 3.2 cm LVPWd: 0.85 cm LAV (MOD-bp): 33.0 ml ACS: 1.61 cm Ao root diam: 3.1 cm LVOT diam: 1.97 cm LA dimension: 2.7 cm Doppler Measurements & Calculations MV E max evan: 134.4 cm/sec Med E/e': 35.3 Lat E/e': 38.3 Med Peak E' Evan: 3.8 cm/sec Lat Peak E' Evan: 3.5 cm/sec Ao max P.5 mmHg LV V1 mean: 57.3 cm/sec Ao V2 max: 105.6 cm/sec LV V1 mean P.44 mmHg Left Ventricle There is mild concentric left ventricular hypertrophy. Left ventricular systolic function is normal. Ejection Fraction = 55-60%. The transmitral spectral Doppler flow pattern is normal for age. Right Ventricle The right ventricle is normal in size and function. Atria Normal left and right atrial size and function. Mitral Valve There is mild mitral valve thickening. There is no mitral valve stenosis. Tricuspid Valve The tricuspid valve is normal in structure and function. There is mild tricuspid regurgitation. Aortic Valve The aortic valve opens well. No hemodynamically significant valvular aortic stenosis. No aortic regu rgitation is present. Pulmonic Valve The pulmonic valve is not well seen, but is grossly normal. There is no pulmonic valvular stenosis. Great Vessels The aortic root is normal size. Pericardium/Pleura There is no pericardial effusion. Tech Comments TDS. Patient scanned supine. Suboptimal EKG due to tremors. Summary Statements There is mild concentric left ventricular hypertrophy. Left ventricular systolic function is normal. Ejection Fraction = 55-60%. There is mild mitral valve thickening. There is mild tricuspid regurgitation. No hemodynamically significant valvular aortic stenosis. The aortic root is normal size. There is no pericardial effusion. MD Manning *Bina 09/25/2019, 3:01 PM Ordering Physician: Shiva Mcneill Referring Physician: SHIVA CAMP Performed By: Deyanira Orta
--- NOTE | 2019-09-25 15:07 | PN ---
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 (short form) - Note 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: Transfer note Subjective: Pt seen and examined in ICU. Pt stated that her discomfort improved compared to yesterday. Stated that she feels that she's having bowel movement. Admits to feeling nauseated after having some ice chips. Pt stated that she does not feel hungry, but stated that she believes she can tolerate some liquid. Denies abdominal pain, vomiting, chills, fevers, chest pain or shortness of breath. Overnight, pt had an episode of hypoglycemia (fingerstick 55) and received an amp of d50, to which she responded appropriately (fingerstick 85). She was also subsequently given lactated ringers with D50 to further improve her blood glucose. Objective: Last Vital Signs Temp Pulse Resp BP Pulse Ox 97.2 F L 89 17 173/75 H 94 L 09/25/19 10:00 09/25/19 12:00 09/25/19 12:00 09/25/19 12:09/25/19 08:00 Physical Exam: GENERAL: Alert and oriented. Not in acute distress. HEENT: NCAT, EOMI. PERRL. CV: normal S1, S2. No murmurs. Regular rate and rhythm. PULMONARY: Clear to auscultation bilaterally. No wheezes. GI: Bowel sounds present in all 4 quadrants. Normoactive bowel sounds. SKIN: Warm, dry. Assessment/Plan: 79 year old with PMH T2DM and Parkinson's disease presented to the ED with progressive abdominal distention and abdominal pain. Pt complained of anorexia for several days due to feelings of nausea. There was also history of coffee ground emesis, for which pt was placed on protonix. CT and KUB done in the ED was suggestive of sigmoid volvulus. Labs done in ED were significant for elevat ed lactate at 3.0. GI saw the pt and placed rectal tube for decompression. Abdominal distention improved. Pt was subsequently transferred to ICU for further management. Pt showed signs of abdominal distention again. Thus, pending input from surgery regarding conservative management, which will result in recurrent volvulus vs surgical option. On 09/24, GI performed a partial colonoscopy and detorsion of the volvulus. Pt currently does not complain of abdominal pain or vomiting. Surgery evaluated pt and recommended surgical option for Saturday, given the risk of recurrent volvulus. Pt is hemodynamically stable and medically optimized for transfer to medical surgical floor. Problem List: #Neuro Parkinson's disease Alert and oriented -Not currently on Sinemet, will resume once tolerating PO. #CV Borderline troponin elevation Hypertension -Cardio consulted. Borderline troponin elevation and normal CK is not consistent with acute coronary syndrome. ECG is without ischemic changes. -Follow echo #Pulm -Place on NC 2L -Supplemental O2 to keep SpO2 >95% #GI Abdominal distention with concern for ischemic bowel -CT abdomen/pelvis - suggestive of sigmoid volvulus. No evidence of small bowel obstruction. Significant dilation of distal esophagus down the the level of the GE junction. 3.8 cm fluid collection within tortuous distal esophagus. -KUB - coffee allison appearance, dilated sigmoid. Repeat KUB showed improved distention, with rectal tube. -GI consulted. 09/24, GI performed a partial colonoscopy and detorsion of the volvulus. -Surgery consulted. Will proceed to do surgery, given risk of recurrent volvulus. Scheduled for Saturday if cleared by Cardiology. -Given Zofran PRN for nausea -Given Protonix IV #Endo T2DM -BGM with ISS #Renal Hypokalemia -Received 10 mEq KCl in ED -Given potassium chloride 40 mEq once. -Given KPhos in D5% -Follow electrolytes and replete as needed #ID Abdominal pain -Given meropenem in ED. -ID consulted. Recommended Ertapenem for bowel coverage, given pt's allergy profile. -Follow WBC -Trend lactate #Ppx -GI: protonix -DVT: SCD #FEN -LR -Replete lytes as needed. Dispo: transfer to medical surgical floor.
--- NOTE | 2019-09-25 15:24 | CONSULT ---
Consult - text type - Consultation Consultation Note: 79 yr old female with hiastory of parkinson's , DM , HTN admitted with confirmed diagnosis of sigmoid volvulus. s/p colonoscopy with decompression. She has since clinically improved. This is likely to reoccur. If she is cleared by Cardiology and is will to proceed will plan surgery for saturday. Will fllow her over the weekend
--- NOTE | 2019-09-25 19:01 | CONS ---
DATE OF CONSULTATION: 09/25/2019 REASON FOR CONSULTATION: Sigmoid volvulus. This is an emergency consultation requested by the emergency room physician. BRIEF HISTORY: A 79-year-old female who has Parkinson's and multiple medical problems comes from a group living facility, [facility], where she was thought to have pseudoobstruction. She had an x-ray followed by a CAT scan suggestive of sigmoid volvulus. She had an initial decompression done by Dr. Navarro with a rigid sigmoidoscope, and then today she had a colonoscopy done to the transverse colon. The colon was completely placed into its proper position. Request was made for surgical evolution. PAST MEDICAL HISTORY: Significant for diabetes, hydronephrosis, atrophic kidney, Parkinson's, hypertension. She is DNR/DNI. She has had a previous right hip surgery. SOCIAL HISTORY: Negative for alcohol. Negative for tobacco. HOME MEDICATIONS: Include insulin and lisinopril. She is bedbound. FAMILY HISTORY: Noncontributory. REVIEW OF SYSTEMS: General: Admits to fatigue. Cardiac: Denies chest pain. Respiratory: Denies shortness of breath. Gastrointestinal: Currently feels well after her colonoscopy. Denies abdominal pain. Genitourinary: Denies dysuria. She does have Parkinson's . Musculoskeletal: Admits to some arthritic pain. PHYSICAL EXAMINATION: General: This is well-developed, well-nourished 79-year-old female in no distress. Vital signs: She is afebrile. Her vital signs are stable. HEENT: Head is normocephalic. Sclerae anicteric. Neck: Supple. Chest: Clear. Abdomen: Softly distended. There are no obvious surgical scars. There are no obvious hernias. She is not tender. Extremities: Her extremities have trace edema. LABORATORY: On review, her white blood cell count is 15,000 which is from this morning prior to her colonoscopy procedure. Her chemistries show a low potassium at 3.0, a low phosphorus of 1.9, her albumin is low at 2.3, her troponin is currently more than 3 times normal range at 0.18. She had an initial lactic acid that was 3.0 and it was last checked to be 2.1. On review of her imaging, she had a CAT scan of her abdomen and pelvis which showed a sigmoid volvulus without evidence of small bowel obstruction. There was some ascites. There were vascular calcifications. There was dilatation of the esophagus, and there was a mass noted in the distal esophagus. There was also noted to be pneumonia, right sided more than left. ASSESSMENT: This is a 79-year-old female with first documented episode of sigmoid volvulus. She had a partial decompression yesterday and a full one today. She is not a great candidate for surgery since she is bedbound. The only surgery I would offer would be a sigmoid colectomy with an end colostomy. It would not be worth the risk of attempting anastomosis with size discrepancy, malnutrition in a patient who is bedbound and likely would not benefit from an anastomosis. Normally I would not recommend surgery until she has had multiple bouts of sigmoid volvulus requiring decompression. If this keeps recurring while she is in the hospital, they could make arrangements this admission, but hopefully once decompressed she will remain that way and untwisted and be able to function. As far as the mass noted on CAT scan on the esophagus, this should be managed by the GI service. I will be available for a sigmoid colectomy, colostomy, as she is considered a candidate for surgery and if she has further episodes of sigmoid volvulus. DO ANNALISA EDWARD/[id number] MTDD
[2019-09-25] MEDS: LISINOPRIL 10 MG TABLET (FP) PO SCH (19:30)
[2019-09-25] MEDS ORDERED: PT OWN MED DRAWER 7, Y5N ONE (21:13)
[2019-09-25] MEDS: CHLORHEXIDINE GLUCONATE 4% CLEANSER FOR DECOLONIZATION TP SCH (21:19)
[2019-09-25] MEDS: ERTAPENEM SODIUM 1 GM in SODIUM CHLORIDE 50 ML IVPB SCH (23:27)
[2019-09-26] MEDS: INSULIN SLIDING SCALE (NOVOLOG) 1 VIAL SQ SCH ×4 (06:18→21:53)
[2019-09-26] MEDS: ONDANSETRON 4 MG/2 ML VIAL IVPUSH PRN (07:13)
[2019-09-26 07:22] LABS: BASO % 0.2 % (0-2.0); EOS % 3.6 % (0-4.5); HEMATOCRIT 27.6 % (32.4-45.2); HEMOGLOBIN 9.2 GM/dL (10.7-15.3); LYMPH % 6.7 % (8-40); MCH 31.5 pg (25.7-33.7); MCHC 33.4 g/dl (32.0-36.0); MEAN CELL VOLUME 94.4 fl (80-96); MEAN PLT VOLUME 9.9 fl (7.5-11.1); NEUT % 81.5 % (42.8-82.8); PLATELET COUNT 257 K/MM3 (134-434); RBC 2.92 M/mm3 (3.60-5.2); RDW 14.5 % (11.6-15.6); WHITE BLOOD COUNT 8.2 K/mm3 (4.0-10.0)
--- NOTE | 2019-09-26 07:36 | PN.GI ---
GI 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 Subjective: episode of nausea/ vomiting as per RN / staff - Objective Vital Signs: Vital Signs Temperature 98.7 F 09/26/19 06:00 Pulse Rate 94 H 09/26/19 06:00 Respiratory Rate 21 H 09/26/19 06:00 Blood Pressure 159/99 09/26/19 06:00 O2 Sat by Pulse Oximetry (%) 98 09/26/19 06:00 Constitutional: No Distress Eyes: Yes: WNL Respiratory: Yes: WNL, Regular, CTA Bilaterally Gastrointestinal Inspection: Yes: WNL ...Auscultate: Yes: Other (tympanitic , not tender , nml bs) Edema: No Labs: CBC, BMP 09/26/19 05:38 INR, PTT INR 0.91 (0.83-1.09) 09/24/19 10:10 Problem List - Problems (1) Volvulus of descending colon Assessment/Plan: - axr to be done today - npo / ivf's - if axr without volvulus advance to clear liquid diet - if axr consistent with volvulus contact surgery for f/u Code(s): K56.2 - VOLVULUS
[2019-09-26 07:55] LABS: ALBUMIN 1.7 g/dl (3.4-5.0); BILIRUBIN,TOTAL 0.3 mg/dL (0.2-1); BLOOD UREA NITROGEN 9.4 mg/dL (7-18); CALCIUM 7.9 mg/dL (8.5-10.1); CREATININE 0.6 mg/dL (0.55-1.3); MAGNESIUM 1.7 mg/dL (1.8-2.4); PHOSPHOROUS 2.8 mg/dL (2.5-4.9)
--- NOTE | 2019-09-26 08:12 | PN ---
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, Physician Chief Complaint: volvulus/abd pain History of Present Illness: comfortable, alert stomach not hurting at present uses walker at baseline, does not do complete ADLs herself no cp, sob with her routine denies cp, sob, palp, swelling at present denies prior h/o CAD, CHF, CVA - Current Medication List Current Medications: Active Medications Chlorhexidine Gluconate (Hibiclens For Decolonization -) 1 applic TP [facility] Last Admin: 09/25/19 21:19 Dose: 1 applic Documented by: Ertapenem 1 gm/ Sodium (Chloride) 50 mls @ 100 mls/hr IVPB [facility] Last Admin: 09/25/19 23:27 Dose: 100 mls/hr Documented by: Insulin Aspart (Novolog Vial Sliding Scale -) 1 vial SQ [facility]; Protocol Last Admin: 09/26/19 06:18 Dose: Not Given Documented by: Lisinopril (Prinivil) 10 mg PO DAILY [facility] Last Admin: 09/25/19 19:30 Dose: Not Given Documented by: Mupirocin (Bactroban Ointment (For Decolonization) -) 1 applic NS BID [facility] Stop: 09/29/19 21:59 Last Admin: 09/25/19 21:19 Dose: 1 applic Documented by: Ondansetron HCl (Zofran Injection) 4 mg IVPUSH Q4H PRN PRN Reason: NAUSEA AND/OR VOMITING Last Admin: 09/26/19 07:13 Dose: 4 mg Documented by: Pantoprazole Sodium (Protonix Iv) 40 mg IVPUSH DAILY [facility] Last Admin: 09/25/19 09:41 Dose: 40 mg Documented by: - Objective Vital Signs: Vital Signs Temperature 98.7 F 09/26/19 06:00 Pulse Rate 94 H 09/26/19 06:00 Respiratory Rate 21 H 09/26/19 06:00 Blood Pressure 159/99 09/26/19 06:00 O2 Sat by Pulse Oximetry (%) 94 L 09/26/19 07:36 Constitutional: Yes: Well Nourished, No Distress, Calm Cardiovascular: Yes: Regular Rate and Rhythm. No: Gallop, Murmur Respiratory: Yes: Regular, CTA Bilaterally. No: Accessory Muscle Use, Rales, Wheezes Extremities: No: Cold Edema: No Neurological: Yes: Alert, Oriented Psychiatric: No: Agitated Labs: CBC, BMP 09/26/19 05:38 09/26/19 05:38 INR, PTT INR 0.91 (0.83-1.09) 09/24/19 10:10 Assessment/Plan ecg: sr nl intervals no ischemic changes cxr: no sig chf Echo 09/27: nl LV, RV. valves WNL tele: NSR at times with frequent APCs; overnight hussein to 45 bpm with poor baseline, irregular--cannot differentiate sinus arrhythmia vs slow AF a/p: 79 f hx htn, hld, dm, sent [place] for abd pain. sigmoid volvulus, preop CV eval: -no signs acs. -volvulus resolving, plan for surgery per dr shipley -Revised CV Risk Index = 1, decr functional capacity. no signs/sx of active CAD/CHF, echo unremarkable. may proceed with surgery, at acceptable CV risk. arrhythmia: -slow, irregular rhythm overnight with poor baseline: ? sinus arrhythmia vs slow PAFib -will not start AC in absence of definitive AF on tele (note frequent APCs at times as well, not to be confused with AF) -cont tele monitoring htn: -bp mostly reasonable, same meds, observe trend positive trop: -borderline trop elevation with flat trend and nl ck, not c/w acs. ecg w/o ischemic changes. -normal LV fxn
[2019-09-26 08:17] LABS: POTASSIUM 2.6 mmol/L (3.5-5.1)
--- NOTE | 2019-09-26 08:48 | PN ---
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, Physician Chief Complaint: Abdominal pain History of Present Illness: Admitted with a sigmoid volvulus , s/p colonoscopy and decompression Had episode of vomiting - Current Medication List Current Medications: Active Medications Chlorhexidine Gluconate (Hibiclens For Decolonization -) 1 applic TP HS [facility] Last Admin: 09/25/19 21:19 Dose: 1 applic Documented by: Ertapenem 1 gm/ Sodium (Chloride) 50 mls @ 100 mls/hr IVPB [facility] Last Admin: 09/25/19 23:27 Dose: 100 mls/hr Documented by: Potassium Chloride (Potassium Chloride 10 Meq Premix Ivpb -) 10 meq in 100 mls @ 100 mls/hr IVPB Q60M [facility] Stop: 09/26/19 11:29 Insulin Aspart (Novolog Vial Sliding Scale -) 1 vial SQ [facility]; Protocol Last Admin: 09/26/19 06:18 Dose: Not Given Documented by: Lisinopril (Prinivil) 10 mg PO DAILY [facility] Last Admin: 09/25/19 19:30 Dose: Not Given Documented by: Mupirocin (Bactroban Ointment (For Decolonization) -) 1 applic NS BID [facility] Stop: 09/29/19 21:59 Last Admin: 09/25/19 21:19 Dose: 1 applic Documented by: Ondansetron HCl (Zofran Injection) 4 mg IVPUSH Q4H PRN PRN Reason: NAUSEA AND/OR VOMITING Last Admin: 09/26/19 07:13 Dose: 4 mg Documented by: Pantoprazole Sodium (Protonix Iv) 40 mg IVPUSH DAILY [facility] Last Admin: 09/25/19 09:41 Dose: 40 mg Documented by: - Objective Vital Signs: Vital Signs Temperature 98.7 F 09/26/19 06:00 Pulse Rate 97 H 09/26/19 08:00 Respiratory Rate 12 09/26/19 08:00 Blood Pressure 146/52 L 09/26/19 08:00 O2 Sat by Pulse Oximetry (%) 98 09/26/19 08:26 Labs: CBC, BMP 09/26/19 05:38 09/26/19 05:38 INR, PTT INR 0.91 (0.83-1.09) 09/24/19 10:10 Problem List - Problems (1) Volvulus of descending colon Code(s): K56.2 - VOLVULUS Assessment/Plan Exam remains benign but had episode of vomiting Xrays pending Plan for sigmoid resection provided that we have cardiology clearance
[2019-09-26] MEDS: KCL 10 MEQ IVPB 10 MEQ/100 ML INFUS.BAG IVPB SCH ×3 (09:00→12:23)
[2019-09-26] MEDS: PANTOPRAZOLE SODIUM 40 MG VIAL IVPUSH SCH (09:05)
[2019-09-26] MEDS: LISINOPRIL 10 MG TABLET (FP) PO SCH (09:05)
[2019-09-26] MEDS: MUPIROCIN 2% TOPICAL OINTMENT FOR DECOLONIZATION NS SCH ×2 (09:06→21:50)
--- NOTE | 2019-09-26 09:48 | PN ---
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, Physician History of Present Illness: AWAKE, ALERT IN BED C/O ABDOMINAL DISCOMFORT + N/V + LOOSE BMS TOLERATING ERTAPENEM AFEBRILE WBC IMPROVED WNL BC (-) - Current Medication List Current Medications: Active Medications Chlorhexidine Gluconate (Hibiclens For Decolonization -) 1 applic TP HS [facility] Last Admin: 09/25/19 21:19 Dose: 1 applic Documented by: Ertapenem 1 gm/ Sodium (Chloride) 50 mls @ 100 mls/hr IVPB [facility] Last Admin: 09/25/19 23:27 Dose: 100 mls/hr Documented by: Potassium Chloride (Potassium Chloride 10 Meq Premix Ivpb -) 10 meq in 100 mls @ 100 mls/hr IVPB Q60M [facility] Stop: 09/26/19 11:29 Last Admin: 09/26/19 09:00 Dose: 100 mls/hr Documented by: Insulin Aspart (Novolog Vial Sliding Scale -) 1 vial SQ [facility]; Protocol Last Admin: 09/26/19 06:18 Dose: Not Given Documented by: Lisinopril (Prinivil) 10 mg PO DAILY [facility] Last Admin: 09/26/19 09:05 Dose: Not Given Documented by: Mupirocin (Bactroban Ointment (For Decolonization) -) 1 applic NS BID [facility] Stop: 09/29/19 21:59 Last Admin: 09/26/19 09:06 Dose: 1 applic Documented by: Ondansetron HCl (Zofran Injection) 4 mg IVPUSH Q4H PRN PRN Reason: NAUSEA AND/OR VOMITING Last Admin: 09/26/19 07:13 Dose: 4 mg Documented by: Pantoprazole Sodium (Protonix Iv) 40 mg IVPUSH DAILY [facility] Last Admin: 09/26/19 09:05 Dose: 40 mg Documented by: - Objective Vital Signs: Vital Signs Temperature 98.7 F 09/26/19 06:00 Pulse Rate 97 H 09/26/19 08:00 Respiratory Rate 12 09/26/19 08:00 Blood Pressure 146/52 L 09/26/19 08:00 O2 Sat by Pulse Oximetry (%) 98 09/26/19 08:26 Constitutional: Yes: No Distress Eyes: Yes: Conjunctiva Clear Cardiovascular: Yes: Regular Rate and Rhythm, S1, S2 Respiratory: Yes: Diminished Gastrointestinal: Yes: Normal Bowel Sounds, Soft, Abdomen, Obese. No: Tende rness Edema: Yes Labs: CBC, BMP 09/26/19 05:38 09/26/19 05:38 INR, PTT INR 0.91 (0.83-1.09) 09/24/19 10:10 Assessment/Plan SIGMOID VOLVULUS LEUKOCYTOSIS MULTIPLE ANTIBIOTIC ALLERGIES CONTINUE EMPIRIC ERTAPENEM
[2019-09-26] MEDS ORDERED: MAGNESIUM 2GM/50ML STERILE WATER IVPB IVPB ONE (11:00)
--- NOTE | 2019-09-26 11:28 | PN ---
Physical Exam: SUBJECTIVE: Patient seen and examined OBJECTIVE: Vital Signs Period Temp Pulse Resp BP Sys/Grossman Pulse Ox Last 24 Hr 97 F-98.7 F 72-102 11-21 111-188/47-99 94-100 GENERAL: The patient is awake, alert, and fully oriented, in no acute distress. HEAD: Normal with no signs of trauma. EYES: PERRL, extraocular movements intact, sclera anicteric, conjunctiva clear. No ptosis. ENT: Ears normal, nares patent, oropharynx clear without exudates, moist mucous membranes. NECK: Trachea midline, full range of motion, supple. LUNGS: Breath sounds equal, clear to auscultation bilaterally, no wheezes, no crackles, no accessory muscle use. HEART: Regular rate and rhythm, S1, S2 without murmur, rub or gallop. ABDOMEN: Soft, nontender, nondistended, normoactive bowel sounds, no guarding, no rebound, no hepatosplenomegaly, no masses. EXTREMITIES: 2+ pulses, warm, well-perfused, no edema. NEUROLOGICAL: Cranial nerves II through XII grossly intact. Normal speech, gait not observed. PSYCH: Normal mood, normal affect. SKIN: Warm, dry, normal turgor, no rashes or lesions noted Laboratory Results - last 24 hr 09/24/19 09/25/19 09/25/19 12:17 06:06 06:06 WBC 15.7 H RBC 3.89 Hgb 11.9 Hct 37.1 MCV 95.3 MCH 30.7 MCHC 32.2 RDW 14.7 Plt Count 332 MPV 10.0 Absolute Neuts (auto) 13.9 H Neutrophils % 88.6 H Lymphocytes % 4.1 L D Monocytes % 5.9 Eosinophils % 1.3 D Basophils % 0.1 Nucleated RBC % 0 Sodium 138 Potassium 3.0 L Chloride 101 Carbon Dioxide 27 Anion Gap 10 BUN 14.0 Creatinine 0.6 Est GFR (CKD-EPI)AfAm 101.90 Est GFR (CKD-EPI)NonAf 87.92 POC Glucometer Random Glucose 90 Lactic Acid Calcium 8.8 Phosphorus 1.9 L Magnesium 2.0 Total Bilirubin 0.3 AST 24 ALT 18 Alkaline Phosphatase 128 H LD Total Creatine Kinase 208 H Creatine Kinase Index 2.1 CK-MB (CK-2) 4.5 H Troponin I 0.13 H C-Reactive Protein Total Protein 5.4 L Albumin 2.3 L Total Amylase Urine Color Urine Appearance Urine pH Ur Specific [place] Urine Protein Urine Glucose (UA) Urine Ketones Urine Blood Urine Nitrite Urine Bilirubin Urine Urobilinogen Ur Leukocyte Esterase Urine WBC (Auto) Urine RBC (Auto) Urine Casts (Auto) U Pathogenic Cast Auto U Epithel Cells (Auto) Urine Bacteria (Auto) COVID-19 ([facility]) Not detected 09/25/19 09/25/19 09/25/19 13:39 14:13 17:04 WBC RBC Hgb Hct MCV MCH MCHC RDW Plt Count MPV Absolute Neuts (auto) Neutrophils % Lymphocytes % Monocytes % Eosinophils % Basophils % Nucleated RBC % Sodium Potassium Chloride Carbon Dioxide Anion Gap BUN Creatinine Est GFR (CKD-EPI)AfAm Est GFR (CKD-EPI)NonAf POC Glucometer 253 210 Random Glucose Lactic Acid Calcium Phosphorus Magnesium Total Bilirubin AST ALT Alkaline Phosphatase LD Total Creatine Kinase Creatine Kinase Index CK-MB (CK-2) Troponin I C-Reactive Protein Total Protein Albumin Total Amylase Urine Color Yellow Urine Appearance Clear Urine pH 5.5 Ur Specific [place] 1.013 Urine Protein Trace Urine Glucose (UA) 1+ H Urine Ketones Negative Urine Blood Trace Urine Nitrite Negative Urine Bilirubin Negative Urine Urobilinogen 0.2 Ur Leukocyte Esterase 2+ H Urine WBC (Auto) 348 Urine RBC (Auto) 17 Urine Casts (Auto) 4 U Pathogenic Cast Auto Non seen U Epithel Cells (Auto) >36 Urine Bacteria (Auto) 39 COVID-19 ([facility]) 09/25/19 09/26/19 09/26/19 20:35 05:38 05:38 WBC 8.2 RBC 2.92 L Hgb 9.2 L Hct 27.6 L D MCV 94.4 MCH 31.5 MCHC 33.4 RDW 14.5 Plt Count 257 D MPV 9.9 Absolute Neuts (auto) 6.6 Neutrophils % 81.5 Lymphocytes % 6.7 L D Monocytes % 8.0 Eosinophils % 3.6 D Basophils % 0.2 Nucleated RBC % 0 Sodium 139 Potassium 2.6 L* Chloride 101 Carbon Dioxide 31 Anion Gap 6 L BUN 9.4 Creatinine 0.6 Est GFR (CKD-EPI)AfAm 101.90 Est GFR (CKD-EPI)NonAf 87.92 POC Glucometer 171 Random Glucose 192 H Lactic Acid Calcium 7.9 L Phosphorus 2.8 Magnesium 1.7 L Total Bilirubin 0.3 AST 21 ALT 13 Alkaline Phosphatase 96 LD Total 162 Creatine Kinase Creatine Kinase Index CK-MB (CK-2) Troponin I C-Reactive Protein Total Protein 4.0 L Albumin 1.7 L Total Amylase Urine Color Urine Appearance Urine pH Ur Specific [place] Urine Protein Urine Glucose (UA) Urine Ketones Urine Blood Urine Nitrite Urine Bilirubin Urine Urobilinogen Ur Leukocyte Esterase Urine WBC (Auto) Urine RBC (Auto) Urine Casts (Auto) U Pathogenic Cast Auto U Epithel Cells (Auto) Urine Bacteria (Auto) COVID-19 ([facility]) 09/26/19 09/26/19 09/26/19 05:38 06:17 09:05 WBC RBC Hgb Hct MCV MCH MCHC RDW Plt Count MPV Absolute Neuts (auto) Neutrophils % Lymphocytes % Monocytes % Eosinophils % Basophils % Nucleated RBC % Sodium Potassium Chloride Carbon Dioxide Anion Gap BUN Creatinine Est GFR (CKD-EPI)AfAm Est GFR (CKD-EPI)NonAf POC Glucometer 177 Random Glucose Lactic Acid 1.5 Calcium Phosphorus Magnesium Total Bilirubin AST ALT Alkaline Phosphatase LD Total Creatine Kinase Creatine Kinase Index CK-MB (CK-2) Troponin I C-Reactive Protein 3.3 H Total Protein Albumin Total Amylase 27 Urine Color Urine Appearance Urine pH Ur Specific [place] Urine Protein Urine Glucose (UA) Urine Ketones Urine Blood Urine Nitrite Urine Bilirubin Urine Urobilinogen Ur Leukocyte Esterase Urine WBC (Auto) Urine RBC (Auto) Urine Casts (Auto) U Pathogenic Cast Auto U Epithel Cells (Auto) Urine Bacteria (Auto) COVID-19 ([facility]) Active Medications Generic Name Dose Route Start Last Admin Trade Name Gioq PRN Reason Stop Dose Admin Chlorhexidine Gluconate 1 applic 09/24/19 22:00 09/25/19 21:19 Hibiclens For Decolonization - TP 1 applic HS [facility] Administration Ertapenem 1 gm/ Sodium 50 mls @ 100 mls/hr 09/24/19 22:00 09/25/19 23:27 Chloride IVPB 100 mls/hr HS [facility] Administration Potassium Chloride 10 meq in 100 mls @ 100 mls/hr 09/26/19 08:30 09/26/19 10:06 Potassium Chloride 10 Meq Premix Ivpb - IVPB 09/26/19 11:29 100 mls/hr Q60M [facility] Administration Insulin Aspart 1 vial 09/24/19 16:30 09/26/19 06:18 Novolog Vial Sliding Scale - SQ Not Given ACHS [facility]NA[facility] Protocol Lisinopril 10 mg 09/25/19 14:45 09/26/19 09:05 Prinivil PO Not Given DAILY [facility] Mupirocin 1 applic 09/24/19 22:00 09/26/19 09:06 Bactroban Ointment (For Decolonization) - NS 09/29/19 21:59 1 applic BID [facility] Administration Ondansetron HCl 4 mg 09/24/19 14:32 09/26/19 07:13 Zofran Injection IVPUSH 4 mg Q4H PRN Administration NAUSEA AND/OR VOMITING Pantoprazole Sodium 40 mg 09/25/19 10:00 09/26/19 09:05 Protonix Iv IVPUSH 40 mg DAILY [facility] Administration ASSESSMENT/PLAN: ATTENDING PHYSICIAN STATEMENT I saw and evaluated the patient. I reviewed the resident's note and discussed the case with the resident. I agree with the resident's findings and plan as documented. SUBJECTIVE: OBJECTIVE: ASSESSMENT AND PLAN:
[2019-09-26] MEDS ORDERED: ACETAMINOPHEN 1000 MG/100 ML VIAL (NON FORMULARY) IVPB ONE (12:17)
--- NOTE | 2019-09-26 13:03 | PN ---
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 (short form) - Note 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: Brief ICU Rounding Note: - This pt no longer requires ICU level of care. A transfer order for med/surg has been written. Awaiting bed assignment. Dr. Mcenill is the primary attending for the admission. - Please review 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 / ICU Transfer Summary by resident Dr. Juárez dated 09/25/2019. Pt examined and briefly discussed on rounds. - Hypokalemia and Hypomagnesemia replenished. - Pt continues to have episodes of nausea. Receiving Zofran PRN. - Dr. Jeffery of general surgery planning for sigmoid resection on Saturday. Evaluated by Dr. Boyle of cardiology service. - Dr. Sanders of GI service requesting daily abdominal plain films until surgery to evaluate for repeat volvulus. Todays film was not performed at time of signing. Case discussed with ICU Attending Dr. Perez. Philip Couch M.D., PGY3 ICU Service Resident 26 Sep 2019
--- NOTE | 2019-09-26 13:31 | PN ---
Teaching Attending Note Name of Resident: Philip Couch ATTENDING PHYSICIAN STATEMENT I saw and evaluated the patient. I reviewed the resident's note and discussed the case with the resident. I agree with the resident's findings and plan as documented. SUBJECTIVE: Patient seen and examined in the ICU. Awake and alert. Reports abdominal symptoms are better today. No CP or SOB. Seen by surgery : recommend sigmoid resection Intake & Output 09/23/19 09/24/19 09/25/19 09/26/19 23:59 23:59 23:59 23:59 Intake Total 6619 358 5574 Output Total 1500 Balance 1200 -1000 1500 Weight 130 lb 129 lb 13.636 oz 129 lb 13.636 oz Last Vital Signs Temp Pulse Resp BP Pulse Ox 98.5 F 109 H 12 160/66 95 09/26/19 10:00 09/26/19 12:00 09/26/19 12:00 09/26/19 12:00 09/26/19 10:00 Active Medications Chlorhexidine Gluconate (Hibiclens For Decolonization -) 1 applic TP HS [facility] Last Admin: 09/25/19 21:19 Dose: 1 applic Documented by: Ertapenem 1 gm/ Sodium (Chloride) 50 mls @ 100 mls/hr IVPB [facility] Last Admin: 09/25/19 23:27 Dose: 100 mls/hr Documented by: Insulin Aspart (Novolog Vial Sliding Scale -) 1 vial SQ [facility]; Protocol Last Admin: 09/26/19 11:57 Dose: 4 units Documented by: Lisinopril (Prinivil) 10 mg PO DAILY [facility] Last Admin: 09/26/19 09:05 Dose: Not Given Documented by: Mupirocin (Bactroban Ointment (For Decolonization) -) 1 applic NS BID [facility] Stop: 09/29/19 21:59 Last Admin: 09/26/19 09:06 Dose: 1 applic Documented by: Ondansetron HCl (Zofran Injection) 4 mg IVPUSH Q4H PRN PRN Reason: NAUSEA AND/OR VOMITING Last Admin: 09/26/19 07:13 Dose: 4 mg Documented by: Pantoprazole Sodium (Protonix Iv) 40 mg IVPUSH DAILY [facility] Last Admin: 09/26/19 09:05 Dose: 40 mg Documented by: GENERAL: Awake, alert, weak appearing but in NAD HEENT: NCAT, EOMI. LUNGS: Breath sounds equal, clear to auscultation bilaterally HEART: Normal S1 and S2 without murmur. Regular rate and rhythm ABDOMEN: Soft, nontender, slightly distended, normoactive bowel sounds, no guarding. No scars. EXTREMITIES: No edema, well-perfused. SKIN: Warm, dry. Laboratory Results - last 24 hr 09/24/19 09/25/19 09/25/19 12:17 06:06 06:06 WBC 15.7 H RBC 3.89 Hgb 11.9 Hct 37.1 MCV 95.3 MCH 30.7 MCHC 32.2 RDW 14.7 Plt Count 332 MPV 10.0 Absolute Neuts (auto) 13.9 H Neutrophils % 88.6 H Lymphocytes % 4.1 L D Monocytes % 5.9 Eosinophils % 1.3 D Basophils % 0.1 Nucleated RBC % 0 Sodium 138 Potassium 3.0 L Chloride 101 Carbon Dioxide 27 Anion Gap 10 BUN 14.0 Creatinine 0.6 Est GFR (CKD-EPI)AfAm 101.90 Est GFR (CKD-EPI)NonAf 87.92 POC Glucometer Random Glucose 90 Lactic Acid Calcium 8.8 Phosphorus 1.9 L Magnesium 2.0 Total Bilirubin 0.3 AST 24 ALT 18 Alkaline Phosphatase 128 H LD Total Creatine Kinase 208 H Creatine Kinase Index 2.1 CK-MB (CK-2) 4.5 H Troponin I 0.13 H C-Reactive Protein Total Protein 5.4 L Albumin 2.3 L Total Amylase Urine Color Urine Appearance Urine pH Ur Specific Spencer Urine Protein Urine Glucose (UA) Urine Ketones Urine Blood Urine Nitrite Urine Bilirubin Urine Urobilinogen Ur Leukocyte Esterase Urine WBC (Auto) Urine RBC (Auto) Urine Casts (Auto) U Pathogenic Cast Auto U Epithel Cells (Auto) Urine Bacteria (Auto) COVID-19 ([facility]) Not detected 09/25/19 09/25/19 09/25/19 13:39 14:13 17:04 WBC RBC Hgb Hct MCV MCH MCHC RDW Plt Count MPV Absolute Neuts (auto) Neutrophils % Lymphocytes % Monocytes % Eosinophils % Basophils % Nucleated RBC % Sodium Potassium Chloride Carbon Dioxide Anion Gap BUN Creatinine Est GFR (CKD-EPI)AfAm Est GFR (CKD-EPI)NonAf POC Glucometer 253 210 Random Glucose Lactic Acid Calcium Phosphorus Magnesium Total Bilirubin AST ALT Alkaline Phosphatase LD Total Creatine Kinase Creatine Kinase Index CK-MB (CK-2) Troponin I C-Reactive Protein Total Protein Albumin Total Amylase Urine Color Yellow Urine Appearance Clear Urine pH 5.5 Ur Specific Spencer 1.013 Urine Protein Trace Urine Glucose (UA) 1+ H Urine Ketones Negative Urine Blood Trace Urine Nitrite Negative Urine Bilirubin Negative Urine Urobilinogen 0.2 Ur Leukocyte Esterase 2+ H Urine WBC (Auto) 348 Urine RBC (Auto) 17 Urine Casts (Auto) 4 U Pathogenic Cast Auto Non seen U Epithel Cells (Auto) >36 Urine Bacteria (Auto) 39 COVID-19 ([facility]) 09/25/19 09/26/19 09/26/19 20:35 05:38 05:38 WBC 8.2 RBC 2.92 L Hgb 9.2 L Hct 27.6 L D MCV 94.4 MCH 31.5 MCHC 33.4 RDW 14.5 Plt Count 257 D MPV 9.9 Absolute Neuts (auto) 6.6 Neutrophils % 81.5 Lymphocytes % 6.7 L D Monocytes % 8.0 Eosinophils % 3.6 D Basophils % 0.2 Nucleated RBC % 0 Sodium 139 Potassium 2.6 L* Chloride 101 Carbon Dioxide 31 Anion Gap 6 L BUN 9.4 Creatinine 0.6 Est GFR (CKD-EPI)AfAm 101.90 Est GFR (CKD-EPI)NonAf 87.92 POC Glucometer 171 Random Glucose 192 H Lactic Acid Calcium 7.9 L Phosphorus 2.8 Magnesium 1.7 L Total Bilirubin 0.3 AST 21 ALT 13 Alkaline Phosphatase 96 LD Total 162 Creatine Kinase Creatine Kinase Index CK-MB (CK-2) Troponin I C-Reactive Protein Total Protein 4.0 L Albumin 1.7 L Total Amylase Urine Color Urine Appearance Urine pH Ur Specific Spencer Urine Protein Urine Glucose (UA) Urine Ketones Urine Blood Urine Nitrite Urine Bilirubin Urine Urobilinogen Ur Leukocyte Esterase Urine WBC (Auto) Urine RBC (Auto) Urine Casts (Auto) U Pathogenic Cast Auto U Epithel Cells (Auto) Urine Bacteria (Auto) COVID-19 ([facility]) 09/26/19 09/26/19 09/26/19 05:38 06:17 09:05 WBC RBC Hgb Hct MCV MCH MCHC RDW Plt Count MPV Absolute Neuts (auto) Neutrophils % Lymphocytes % Monocytes % Eosinophils % Basophils % Nucleated RBC % Sodium Potassium Chloride Carbon Dioxide Anion Gap BUN Creatinine Est GFR (CKD-EPI)AfAm Est GFR (CKD-EPI)NonAf POC Glucometer 177 Random Glucose Lactic Acid 1.5 Calcium Phosphorus Magnesium Total Bilirubin AST ALT Alkaline Phosphatase LD Total Creatine Kinase Creatine Kinase Index CK-MB (CK-2) Troponin I C-Reactive Protein 3.3 H Total Protein Albumin Total Amylase 27 Urine Color Urine Appearance Urine pH Ur Specific Spencer Urine Protein Urine Glucose (UA) Urine Ketones Urine Blood Urine Nitrite Urine Bilirubin Urine Urobilinogen Ur Leukocyte Esterase Urine WBC (Auto) Urine RBC (Auto) Urine Casts (Auto) U Pathogenic Cast Auto U Epithel Cells (Auto) Urine Bacteria (Auto) COVID-19 ([facility]) 09/26/19 11:29 WBC RBC Hgb Hct MCV MCH MCHC RDW Plt Count MPV Absolute Neuts (auto) Neutrophils % Lymphocytes % Monocytes % Eosinophils % Basophils % Nucleated RBC % Sodium Potassium Chloride Carbon Dioxide Anion Gap BUN Creatinine Est GFR (CKD-EPI)AfAm Est GFR (CKD-EPI)NonAf POC Glucometer 273 Random Glucose Lactic Acid Calcium Phosphorus Magnesium Total Bilirubin AST ALT Alkaline Phosphatase LD Total Creatine Kinase Creatine Kinase Index CK-MB (CK-2) Troponin I C-Reactive Protein Total Protein Albumin Total Amylase Urine Color Urine Appearance Urine pH Ur Specific Spencer Urine Protein Urine Glucose (UA) Urine Ketones Urine Blood Urine Nitrite Urine Bilirubin Urine Urobilinogen Ur Leukocyte Esterase Urine WBC (Auto) Urine RBC (Auto) Urine Casts (Auto) U Pathogenic Cast Auto U Epithel Cells (Auto) Urine Bacteria (Auto) COVID-19 ([facility]) ASSESSMENT/PLAN: Resolving suspected Volvulus DM Parkinson's disease History of coffee ground emesis (+) Troponin Seen by surgery and recommends sigmoid resection IVF ABX Supplemental O2 as needed Aspiration precautions VTE prophylaxis Follow H & H PPI Can be monitored on the Floor Dr Perez
[2019-09-26] MEDS: CHLORHEXIDINE GLUCONATE 4% CLEANSER FOR DECOLONIZATION TP SCH (21:51)
[2019-09-26] MEDS: ERTAPENEM SODIUM 1 GM in SODIUM CHLORIDE 50 ML IVPB SCH (21:52)
[2019-09-27] MEDS: INSULIN SLIDING SCALE (NOVOLOG) 1 VIAL SQ SCH ×4 (06:05→21:27)
[2019-09-27 07:02] LABS: BASO % 0.1 % (0-2.0); EOS % 1.6 % (0-4.5); HEMATOCRIT 31.8 % (32.4-45.2); HEMOGLOBIN 10.2 GM/dL (10.7-15.3); LYMPH % 3.8 % (8-40); MCH 30.5 pg (25.7-33.7); MEAN CELL VOLUME 95.3 fl (80-96); MEAN PLT VOLUME 10.2 fl (7.5-11.1); MONO % 3.9 % (3.8-10.2); NEUT % 90.6 % (42.8-82.8); PLATELET COUNT 305 K/MM3 (134-434); RBC 3.34 M/mm3 (3.60-5.2); RDW 14.6 % (11.6-15.6); WHITE BLOOD COUNT 17.5 K/mm3 (4.0-10.0)
[2019-09-27 07:29] LABS: ALBUMIN 1.9 g/dl (3.4-5.0); BILIRUBIN,TOTAL 0.3 mg/dL (0.2-1); BLOOD UREA NITROGEN 11.1 mg/dL (7-18); CALCIUM 8.2 mg/dL (8.5-10.1); CREATININE 0.6 mg/dL (0.55-1.3); MAGNESIUM 2.2 mg/dL (1.8-2.4); PHOSPHOROUS 2.8 mg/dL (2.5-4.9); TOT PROT 4.8 g/dl (6.4-8.2)
--- NOTE | 2019-09-27 07:37 | PN.GI ---
GI 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 Subjective: no new complaints - Objective Vital Signs: Vital Signs Temperature 97.8 F 09/27/19 06:00 Pulse Rate 92 H 09/27/19 06:00 Respiratory Rate 18 09/27/19 06:00 Blood Pressure 167/70 09/27/19 06:00 O2 Sat by Pulse Oximetry (%) 95 09/27/19 06:00 Constitutional: No Distress Respiratory: Yes: WNL, Regular, CTA Bilaterally Gastrointestinal Inspection: Yes: WNL ...Auscultate: Yes: Normoactive Bowel Sounds Edema: No Labs: CBC, BMP 09/27/19 05:30 09/27/19 05:30 INR, PTT INR 0.91 (0.83-1.09) 09/24/19 10:10 Problem List - Problems (1) Volvulus of descending colon Assessment/Plan: - axr reviewed - less distension resolving volvulus - plan as per surgery - micu care Code(s): K56.2 - VOLVULUS
[2019-09-27 07:55] LABS: POTASSIUM 2.7 mmol/L (3.5-5.1)
[2019-09-27] MEDS: KCL 10 MEQ IVPB 10 MEQ/100 ML INFUS.BAG IVPB SCH ×3 (09:51→14:38)
[2019-09-27] MEDS: PANTOPRAZOLE SODIUM 40 MG VIAL IVPUSH SCH (09:51)
[2019-09-27] MEDS: LISINOPRIL 10 MG TABLET (FP) PO SCH ×2 (09:51→21:22)
[2019-09-27] MEDS: MUPIROCIN 2% TOPICAL OINTMENT FOR DECOLONIZATION NS SCH ×2 (09:51→21:30)
--- NOTE | 2019-09-27 10:49 | PN ---
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, Physician History of Present Illness: AWAKE, LETHARGIC NO C/O ABDOMINAL DISCOMFORT ONE EPISODE OF VOMITING THIS AM ONE MUCOID BM TOLERATING ERTAPENEM AFEBRILE WBC 17.5 BC (-) - Current Medication List Current Medications: Active Medications Chlorhexidine Gluconate (Hibiclens For Decolonization -) 1 applic TP HS [facility] Last Admin: 09/26/19 21:51 Dose: 1 applic Documented by: Ertapenem 1 gm/ Sodium (Chloride) 50 mls @ 100 mls/hr IVPB [facility] Last Admin: 09/26/19 21:52 Dose: 100 mls/hr Documented by: Potassium Chloride (Potassium Chloride 10 Meq Premix Ivpb -) 10 meq in 100 mls @ 100 mls/hr IVPB Q60M [facility] Stop: 09/27/19 11:59 Last Admin: 09/27/19 09:51 Dose: 100 mls/hr Documented by: Insulin Aspart (Novolog Vial Sliding Scale -) 1 vial SQ [facility]; Protocol Last Admin: 09/27/19 06:05 Dose: Not Given Documented by: Lisinopril (Prinivil) 10 mg PO DAILY [facility] Last Admin: 09/27/19 09:51 Dose: 10 mg Documented by: Mupirocin (Bactroban Ointment (For Decolonization) -) 1 applic NS BID [facility] Stop: 09/29/19 21:59 Last Admin: 09/27/19 09:51 Dose: 1 applic Documented by: Ondansetron HCl (Zofran Injection) 4 mg IVPUSH Q4H PRN PRN Reason: NAUSEA AND/OR VOMITING Last Admin: 09/26/19 07:13 Dose: 4 mg Documented by: Pantoprazole Sodium (Protonix Iv) 40 mg IVPUSH DAILY [facility] Last Admin: 09/27/19 09:51 Dose: 40 mg Documented by: - Objective Vital Signs: Vital Signs Temperature 98.1 F 09/27/19 09:00 Pulse Rate 87 09/27/19 08:00 Respiratory Rate 12 09/27/19 08:00 Blood Pressure 145/58 L 09/27/19 08:00 O2 Sat by Pulse Oximetry (%) 100 09/27/19 08:00 Constitutional: Yes: No Distress, Pallor Cardiovascular: Yes: Regular Rate and Rhythm, S1, S2 Respiratory: Yes: Diminished Gastrointestinal: Yes: Normal Bowel Sounds, Soft, Tenderness, Other (SL DISTENDED) Edema: Yes Labs: CBC, BMP 09/27/19 05:30 09/27/19 05:30 INR, PTT INR 0.91 (0.83-1.09) 09/24/19 10:10 Assessment/Plan SIGMOID VOLVULUS LEUKOCYTOSIS MULTIPLE ANTIBIOTIC ALLERGIES CONTINUE EMPIRIC ERTAPENEM TENTATIVE SURGERY AM
--- NOTE | 2019-09-27 11:29 | PN ---
Physical Exam: SUBJECTIVE: Patient seen and examined at bedside ; patient states she is feeling slightly better though she did have an episode of vomiting this AM . she did have a bowel movement no blood was present OBJECTIVE: Vital Signs Period Temp Pulse Resp BP Sys/Grossman Pulse Ox Last 24 Hr 97.7 F-98.7 F 66-109 12-21 117-174/46-98 92-100 GENERAL: The patient is awake, alert, and fully oriented, in no acute distress. EYES: PEERLA; EOMI; no scleral icterus . . NECK: no JVD; no lymphadenopathy LUNGS: CTA B/L no rales, rhonchi or wheezing HEART: Regular rate and rhythm, S1, S2 without murmur, rub or gallop. ABDOMEN: Soft, NT? ND normoactive BS in all 4 quadrants EXTREMITIES: 2+ pulses, warm, well-perfused, no edema. PSYCH: Normal mood, normal affect. SKIN: Warm, dry, normal turgor, no rashes or lesions noted Laboratory Results - last 24 hr 09/26/19 09/26/19 09/26/19 11:29 14:30 16:15 WBC RBC Hgb Hct MCV MCH MCHC RDW Plt Count MPV Absolute Neuts (auto) Neutrophils % Lymphocytes % Monocytes % Eosinophils % Basophils % Nucleated RBC % Sodium Potassium Chloride Carbon Dioxide Anion Gap BUN Creatinine Est GFR (CKD-EPI)AfAm Est GFR (CKD-EPI)NonAf POC Glucometer 273 156 Random Glucose Calcium Phosphorus Magnesium Total Bilirubin AST ALT Alkaline Phosphatase Creatine Kinase 168 Creatine Kinase Index 2.0 CK-MB (CK-2) 3.4 Troponin I 0.29 H Total Protein Albumin 09/26/19 09/27/19 09/27/19 21:53 05:30 05:30 WBC 17.5 H RBC 3.34 L Hgb 10.2 L Hct 31.8 L D MCV 95.3 MCH 30.5 MCHC 32.0 RDW 14.6 Plt Count 305 MPV 10.2 Absolute Neuts (auto) 15.9 H Neutrophils % 90.6 H Lymphocytes % 3.8 L D Monocytes % 3.9 Eosinophils % 1.6 Basophils % 0.1 Nucleated RBC % 0 Sodium 140 Potassium 2.7 L* Chloride 100 Carbon Dioxide 31 Anion Gap 8 BUN 11.1 Creatinine 0.6 Est GFR (CKD-EPI)AfAm 101.90 Est GFR (CKD-EPI)NonAf 87.92 POC Glucometer 177 Random Glucose 192 H Calcium 8.2 L Phosphorus 2.8 Magnesium 2.2 Total Bilirubin 0.3 AST 31 ALT 20 Alkaline Phosphatase 123 H Creatine Kinase Creatine Kinase Index CK-MB (CK-2) Troponin I Total Protein 4.8 L Albumin 1.9 L 09/27/19 06:03 WBC RBC Hgb Hct MCV MCH MCHC RDW Plt Count MPV Absolute Neuts (auto) Neutrophils % Lymphocytes % Monocytes % Eosinophils % Basophils % Nucleated RBC % Sodium Potassium Chloride Carbon Dioxide Anion Gap BUN Creatinine Est GFR (CKD-EPI)AfAm Est GFR (CKD-EPI)NonAf POC Glucometer 171 Random Glucose Calcium Phosphorus Magnesium Total Bilirubin AST ALT Alkaline Phosphatase Creatine Kinase Creatine Kinase Index CK-MB (CK-2) Troponin I Total Protein Albumin Active Medications Generic Name Dose Route Start Last Admin Trade Name Freq PRN Reason Stop Dose Admin Chlorhexidine Gluconate 1 applic 09/24/19 22:00 09/26/19 21:51 Hibiclens For Decolonization - TP 1 applic HS [facility] Administration Ertapenem 1 gm/ Sodium 50 mls @ 100 mls/hr 09/24/19 22:00 09/26/19 21:52 Chloride IVPB 100 mls/hr HS [facility] Administration Potassium Chloride 10 meq in 100 mls @ 100 mls/hr 09/27/19 09:00 09/27/19 09:51 Potassium Chloride 10 Meq Premix Ivpb - IVPB 09/27/19 11:59 100 mls/hr Q60M [facility] Administration Insulin Aspart 1 vial 09/24/19 16:30 09/27/19 06:05 Novolog Vial Sliding Scale - SQ Not Given [facility] Protocol Lisinopril 10 mg 09/25/19 14:45 09/27/19 09:51 Prinivil PO 10 mg DAILY [facility] Administration Mupirocin 1 applic 09/24/19 22:00 09/27/19 09:51 Bactroban Ointment (For Decolonization) - NS 09/29/19 21:59 1 applic BID [facility] Administration Ondansetron HCl 4 mg 09/24/19 14:32 09/26/19 07:13 Zofran Injection IVPUSH 4 mg Q4H PRN Administration NAUSEA AND/OR VOMITING Pantoprazole Sodium 40 mg 09/25/19 10:00 09/27/19 09:51 Protonix Iv IVPUSH 40 mg DAILY [facility] Administration ASSESSMENT/PLAN: 79 year old with PMH T2DM and Parkinson's disease presented to the ED with progressive abdominal distention and abdominal pain found to have a sigmoid volvulus likely needing sigmoid resection Problem List: #Neuro Parkinson's disease Alert and oriented -Not currently on Sinemet, will resume once tolerating PO. #CV HTN Borderline troponin elevation Hypertension -Cardio consulted; cleared for surgery -Follow echo -lisinopril 10mg #Pulm -Supplemental O2 to keep SpO2 >95% #GI Abdominal distention with concern for ischemic bowel -CT abdomen/pelvis - suggestive of sigmoid volvulus. No evidence of small bowel obstruction. Significant dilation of distal esophagus down the the level of the GE junction. 3.8 cm fluid collection within tortuous distal esophagus. -KUB this AM shows improved distention -GI consulted. Rectal tube for decompression. -Surgery consulted. Will proceed to do surgery, given risk of recurrent volvulus. Scheduled for Saturday; however patients sisters were concerned about surgery; will reach out to them today for further convos in addition to Dr. Jose D Kumar PRN for nausea -Protonix IV -will repeat KUB in AM #Endo T1DM -BGM with ISS #Renal Hypokalemia; this AM 2.7 -given 3 runs of 10 kcl -Given potassium chloride 40 mEq once. -Follow electrolytes and replete as needed -will repeat BMP this afternoon #ID Abdominal pain -ertapenem -ID consulted. Recommended Ertapenem for bowel coverage (day -Trend lactate #Ppx -GI: protonix -DVT: SCD #FEN -LR -Replete lytes as needed. Problem List - Problems (1) Allergy to multiple antibiotics Code(s): Z88.1 - ALLERGY STATUS TO OTHER ANTIBIOTIC AGENTS STATUS (2) Hypokalemia Code(s): E87.6 - HYPOKALEMIA (3) Sigmoid volvulus Code(s): K56.2 - VOLVULUS Visit type - Emergency Visit Emergency Visit: Yes ED Registration Date: 09/24/19 Care time: The patient presented to the Emergency Department on the above date and was hospitalized for further evaluation of their emergent condition. - New Patient This patient is new to me today: Yes Date on this admission: 09/27/19 - Critical Care Critical Care patient: Yes Total Critical Care Time (in minutes): 35 Critical Care Statement: The care of this patient involved high complexity decision making to prevent further life threatening deterioration of the patient's condition and/or to evaluate & treat vital organ system(s) failure or risk of failure. ATTENDING PHYSICIAN STATEMENT I saw and evaluated the patient. I reviewed the resident's note and discussed the case with the resident. I agree with the resident's findings and plan as documented. SUBJECTIVE: OBJECTIVE: ASSESSMENT AND PLAN:
[2019-09-27] MEDS ORDERED: POTASSIUM CHLORIDE ORAL LIQUID 20 MEQ/15 ML PO ONE ×2 (13:20→18:00)
--- NOTE | 2019-09-27 13:20 | PN ---
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, Physician Chief Complaint: volvulus/abd pain History of Present Illness: resting comfortably. denies cp, sob, palp, swelling - Current Medication List Current Medications: Active Medications Chlorhexidine Gluconate (Hibiclens For Decolonization -) 1 applic TP HS [facility] Last Admin: 09/26/19 21:51 Dose: 1 applic Documented by: Ertapenem 1 gm/ Sodium (Chloride) 50 mls @ 100 mls/hr IVPB HS [facility] Last Admin: 09/26/19 21:52 Dose: 100 mls/hr Documented by: Insulin Aspart (Novolog Vial Sliding Scale -) 1 vial SQ [facility]; Protocol Last Admin: 09/27/19 11:56 Dose: 2 units Documented by: Lisinopril (Prinivil) 10 mg PO DAILY [facility] Last Admin: 09/27/19 09:51 Dose: 10 mg Documented by: Mupirocin (Bactroban Ointment (For Decolonization) -) 1 applic NS BID [facility] Stop: 09/29/19 21:59 Last Admin: 09/27/19 09:51 Dose: 1 applic Documented by: Ondansetron HCl (Zofran Injection) 4 mg IVPUSH Q4H PRN PRN Reason: NAUSEA AND/OR VOMITING Last Admin: 09/26/19 07:13 Dose: 4 mg Documented by: Pantoprazole Sodium (Protonix Iv) 40 mg IVPUSH DAILY [facility] Last Admin: 09/27/19 09:51 Dose: 40 mg Documented by: - Objective Vital Signs: Vital Signs Temperature 98.1 F 09/27/19 09:00 Pulse Rate 87 09/27/19 08:00 Respiratory Rate 12 09/27/19 08:00 Blood Pressure 145/58 L 09/27/19 08:00 O2 Sat by Pulse Oximetry (%) 100 09/27/19 08:00 Constitutional: Yes: Well Nourished, No Distress, Calm Cardiovascular: Yes: Regular Rate and Rhythm. No: Murmur Respiratory: Yes: Regular. No: Accessory Muscle Use Extremities: No: Cold Edema: No Neurological: Yes: Alert, Oriented Psychiatric: No: Agitated Labs: CBC, BMP 09/27/19 05:30 09/27/19 05:30 INR, PTT INR 0.91 (0.83-1.09) 07/16/20 10:10 Assessment/Plan ecg: sr nl intervals no ischemic changes cxr: no sig chf Echo 09/27: nl LV, RV. valves WNL tele: NSR at times with frequent APCs, no afib, no bradycardia a/p: 79 f hx htn, hld, dm, sent from pr for abd pain. sigmoid volvulus, preop CV eval: -no signs acs. -volvulus resolving, plan for surgery per dr shipley -Revised CV Risk Index = 1, decr functional capacity. no signs/sx of active CAD/CHF, echo unremarkable. may proceed with surgery, at acceptable CV risk. arrhythmia: -slow, irregular rhythm overnight with poor baseline: ? sinus arrhythmia vs slow PAFib -will not start AC in absence of definitive AF on tele (note frequent APCs at times as well, not to be confused with AF) -cont tele monitoring (remains benign) htn: -bp not controlled. -incr lisinopril 10 qd to 20 bid -replete K (did not respond to 30 IV yest--incr dose today) positive trop: -borderline trop elevation with flat trend and nl ck, not c/w acs. ecg w/o ischemic changes. -normal LV fxn
--- NOTE | 2019-09-27 13:37 | PN ---
Teaching Attending Note Name of Resident: Zulema Garcia ATTENDING PHYSICIAN STATEMENT I saw and evaluated the patient. I reviewed the resident's note and discussed the case with the resident. I agree with the resident's findings and plan as documented. SUBJECTIVE: Patient seen and examined in the ICU. Awake and alert. Episode of vomiting overnight. No CP or SOB. Seen by surgery : recommend sigmoid resection Intake & Output 09/24/19 09/25/19 09/26/19 09/27/19 23:59 23:59 23:59 23:59 Intake Total 1602 790 1884 150 Output Total 6097 868 0419 Balance 1200 -1000 1400 -850 Weight 130 lb 129 lb 13.636 oz 129 lb 130 lb Last Vital Signs Temp Pulse Resp BP Pulse Ox 98.1 F 87 12 145/58 L 100 09/27/19 09:00 09/27/19 08:00 09/27/19 08:00 09/27/19 08:00 09/27/19 08:00 Active Medications Chlorhexidine Gluconate (Hibiclens For Decolonization -) 1 applic TP [facility] Last Admin: 09/26/19 21:51 Dose: 1 applic Documented by: Ertapenem 1 gm/ Sodium (Chloride) 50 mls @ 100 mls/hr IVPB [facility] Last Admin: 09/26/19 21:52 Dose: 100 mls/hr Documented by: Insulin Aspart (Novolog Vial Sliding Scale -) 1 vial SQ [facility]; Protocol Last Admin: 09/27/19 11:56 Dose: 2 units Documented by: Lisinopril (Prinivil) 20 mg PO BID [facility] Mupirocin (Bactroban Ointment (For Decolonization) -) 1 applic NS BID [facility] Stop: 09/29/19 21:59 Last Admin: 09/27/19 09:51 Dose: 1 applic Documented by: Ondansetron HCl (Zofran Injection) 4 mg IVPUSH Q4H PRN PRN Reason: NAUSEA AND/OR VOMITING Last Admin: 09/26/19 07:13 Dose: 4 mg Documented by: Pantoprazole Sodium (Protonix Iv) 40 mg IVPUSH DAILY [facility] Last Admin: 09/27/19 09:51 Dose: 40 mg Documented by: Potassium Chloride (Potassium Chloride Oral Liquid) 40 meq PO ONCE ONE Stop: 09/27/19 18:01 GENERAL: Awake, alert, weak appearing but in NAD HEENT: NCAT, EOMI. LUNGS: Breath sounds equal, clear to auscultation bilaterally HEART: Normal S1 and S2 without murmur. Regular rate and rhythm ABDOMEN: Soft, minimal LLQ tenderness, not distended, normoactive bowel sounds, no guarding. No scars. EXTREMITIES: No edema, well-perfused. SKIN: Warm, dry. Laboratory Results - last 24 hr 09/26/19 09/26/19 09/26/19 14:30 16:15 21:53 WBC RBC Hgb Hct MCV MCH MCHC RDW Plt Count MPV Absolute Neuts (auto) Neutrophils % Lymphocytes % Monocytes % Eosinophils % Basophils % Nucleated RBC % Sodium Potassium Chloride Carbon Dioxide Anion Gap BUN Creatinine Est GFR (CKD-EPI)AfAm Est GFR (CKD-EPI)NonAf POC Glucometer 156 177 Random Glucose Calcium Phosphorus Magnesium Total Bilirubin AST ALT Alkaline Phosphatase Creatine Kinase 168 Creatine Kinase Index 2.0 CK-MB (CK-2) 3.4 Troponin I 0.29 H Total Protein Albumin 09/27/19 09/27/19 09/27/19 05:30 05:30 06:03 WBC 17.5 H RBC 3.34 L Hgb 10.2 L Hct 31.8 L D MCV 95.3 MCH 30.5 MCHC 32.0 RDW 14.6 Plt Count 305 MPV 10.2 Absolute Neuts (auto) 15.9 H Neutrophils % 90.6 H Lymphocytes % 3.8 L D Monocytes % 3.9 Eosinophils % 1.6 Basophils % 0.1 Nucleated RBC % 0 Sodium 140 Potassium 2.7 L* Chloride 100 Carbon Dioxide 31 Anion Gap 8 BUN 11.1 Creatinine 0.6 Est GFR (CKD-EPI)AfAm 101.90 Est GFR (CKD-EPI)NonAf 87.92 POC Glucometer 171 Random Glucose 192 H Calcium 8.2 L Phosphorus 2.8 Magnesium 2.2 Total Bilirubin 0.3 AST 31 ALT 20 Alkaline Phosphatase 123 H Creatine Kinase Creatine Kinase Index CK-MB (CK-2) Troponin I Total Protein 4.8 L Albumin 1.9 L 09/27/19 11:55 WBC RBC Hgb Hct MCV MCH MCHC RDW Plt Count MPV Absolute Neuts (auto) Neutrophils % Lymphocytes % Monocytes % Eosinophils % Basophils % Nucleated RBC % Sodium Potassium Chloride Carbon Dioxide Anion Gap BUN Creatinine Est GFR (CKD-EPI)AfAm Est GFR (CKD-EPI)NonAf POC Glucometer 219 Random Glucose Calcium Phosphorus Magnesium Total Bilirubin AST ALT Alkaline Phosphatase Creatine Kinase Creatine Kinase Index CK-MB (CK-2) Troponin I Total Protein Albumin ASSESSMENT/PLAN: Resolving Volvulus DM Parkinson's disease History of coffee ground emesis (+) Troponin Seen by surgery and recommends sigmoid resection Replete lytes IVF ABX Supplemental O2 as needed Aspiration precautions VTE prophylaxis Follow H & H PPI Can be monitored on the Floor There is no Pulmonary contraindication for anesthesia or anticipated surgery Dr Perez
[2019-09-27 20:20] LABS: HEMATOCRIT 31.2 % (32.4-45.2); HEMOGLOBIN 10.1 GM/dL (10.7-15.3); MCH 31.4 pg (25.7-33.7); MCHC 32.5 g/dl (32.0-36.0); MEAN CELL VOLUME 96.7 fl (80-96); MEAN PLT VOLUME 9.3 fl (7.5-11.1); PLATELET COUNT 343 K/MM3 (134-434); RBC 3.22 M/mm3 (3.60-5.2); RDW 14.9 % (11.6-15.6); WHITE BLOOD COUNT 12.3 K/mm3 (4.0-10.0)
[2019-09-27 20:48] LABS: BLOOD UREA NITROGEN 12.3 mg/dL (7-18); CALCIUM 8.4 mg/dL (8.5-10.1); CREATININE 0.5 mg/dL (0.55-1.3); POTASSIUM 3.7 mmol/L (3.5-5.1)
[2019-09-27] MEDS: CHLORHEXIDINE GLUCONATE 4% CLEANSER FOR DECOLONIZATION TP SCH (21:29)
[2019-09-27] MEDS: ERTAPENEM SODIUM 1 GM in SODIUM CHLORIDE 50 ML IVPB SCH (21:29)
[2019-09-28 06:08] LABS: HEMATOCRIT 30.9 % (32.4-45.2); HEMOGLOBIN 10.1 GM/dL (10.7-15.3); MCH 31.2 pg (25.7-33.7); MCHC 32.8 g/dl (32.0-36.0); MEAN CELL VOLUME 95.2 fl (80-96); MEAN PLT VOLUME 9.6 fl (7.5-11.1); PLATELET COUNT 326 K/MM3 (134-434); RBC 3.24 M/mm3 (3.60-5.2); RDW 14.8 % (11.6-15.6); WHITE BLOOD COUNT 9.3 K/mm3 (4.0-10.0)
[2019-09-28 06:19] LABS: INR 0.97 (0.83-1.09); PROTHROMBIN TIME (PATIENT) 11.4 SEC (9.7-13.0)
[2019-09-28 06:45] LABS: ALBUMIN 1.9 g/dl (3.4-5.0); BILIRUBIN,TOTAL 0.6 mg/dL (0.2-1); BLOOD UREA NITROGEN 13.2 mg/dL (7-18); CALCIUM 8.3 mg/dL (8.5-10.1); CREATININE 0.6 mg/dL (0.55-1.3); MAGNESIUM 2.1 mg/dL (1.8-2.4); PHOSPHOROUS 2.4 mg/dL (2.5-4.9); POTASSIUM 3.4 mmol/L (3.5-5.1); TOT PROT 4.8 g/dl (6.4-8.2)
[2019-09-28] MEDS: INSULIN SLIDING SCALE (NOVOLOG) 1 VIAL SQ SCH ×4 (07:00→22:45)
[2019-09-28] MEDS ORDERED: POTASSIUM CHLORIDE TABS 20 MEQ TABLET.ER (FP) PO ONE (07:48)
--- NOTE | 2019-09-28 07:56 | PN ---
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, Physician Chief Complaint: The patient is scheduled for sigmoidectomy today. Feels better. Abdomen is less distended. History of Present Illness: DM type 2, previously on Insulin. Atrophic kidney, history of cystitis, uti, hydronephrosis. Parkinson's disease. HTN Gait disorder. Falling. HLD, Multiple allergy. DNR/DNI Left hip fracture Syncope Compression fracture L1 Hydrocephalus on CT scan 2014 - Current Medication List Current Medications: Active Medications Chlorhexidine Gluconate (Hibiclens For Decolonization -) 1 applic TP [facility] Last Admin: 09/27/19 21:29 Dose: Not Given Documented by: Ertapenem 1 gm/ Sodium (Chloride) 50 mls @ 100 mls/hr IVPB [facility] Last Admin: 09/27/19 21:29 Dose: Not Given Documented by: Insulin Aspart (Novolog Vial Sliding Scale -) 1 vial SQ [facility]; Protocol Last Admin: 09/27/19 21:27 Dose: Not Given Documented by: Lisinopril (Prinivil) 20 mg PO BID [facility] Last Admin: 09/27/19 21:22 Dose: 20 mg Documented by: Mupirocin (Bactroban Ointment (For Decolonization) -) 1 applic NS BID [facility] Stop: 09/29/19 21:59 Last Admin: 09/27/19 21:30 Dose: 1 applic Documented by: Ondansetron HCl (Zofran Injection) 4 mg IVPUSH Q4H PRN PRN Reason: NAUSEA AND/OR VOMITING Last Admin: 09/26/19 07:13 Dose: 4 mg Documented by: Pantoprazole Sodium (Protonix Iv) 40 mg IVPUSH DAILY [facility] Last Admin: 09/27/19 09:51 Dose: 40 mg Documented by: Potassium Chloride (K-Dur -) 40 meq PO ONCE ONE Stop: 09/28/19 07:49 - Objective Vital Signs: Vital Signs Temperature 98.3 F 09/27/19 21:00 Pulse Rate 73 09/28/19 06:52 Respiratory Rate 11 09/28/19 06:52 Blood Pressure 150/65 09/28/19 06:52 O2 Sat by Pulse Oximetry (%) 97 09/28/19 06:52 Constitutional: Yes: Anxious, Moderate Distress Eyes: Yes: Conjunctiva Clear, EOM Intact HENT: Yes: Atraumatic, Normocephalic Neck: Yes: Supple, Trachea Midline Cardiovascular: Yes: Regular Rate and Rhythm, S1, S2 Respiratory: Yes: Regular, CTA Bilaterally Gastrointestinal: Yes: Soft. No: Ascites, Palpable Mass, Pulsatile Mass, Tenderness, Epigastrium, Tenderness, Rebound, Vomiting ...Rectal Exam: Yes: Deferred Genitourinary: Yes: Daniels Present. No: Anuria Breast(s): Yes: WNL Musculoskeletal: No: Back Pain Edema: No Neurological: Yes: Alert, Oriented, Tremors. No: Aphasia, Confusion, Seizure Labs: CBC, BMP 09/28/19 05:20 09/28/19 05:20 INR, PTT INR 0.97 (0.83-1.09) 09/28/19 05:20 Problem List - Problems (1) Sigmoid volvulus Assessment/Plan: S/P colonoscopy by Dr coronado on 09/25/19igmoid surgery is planned by Dr Judd. Code(s): K56.2 - VOLVULUS (2) Diabetes 1.5, managed as type 1 Assessment/Plan: Follow BGM and cover with Novolog Code(s): E13.9 - OTHER SPECIFIED DIABETES MELLITUS WITHOUT COMPLICATIONS (3) ASHD (arteriosclerotic heart disease) Assessment/Plan: Old [place]. Cardiac enzymes. Cardiology consult, ECHO Troponin 0.2-0.2 Elevated BNP Code(s): I25.10 - ATHSCL HEART DISEASE OF [place] CORONARY ARTERY W/O ANG PCTRS (4) Hypokalemia Assessment/Plan: Replace K IV NPO. Code(s): E87.6 - HYPOKALEMIA (5) HTN (hypertension) Assessment/Plan: Lisinopril started by cardiology Problems reviewed: Yes Code(s): I10 - ESSENTIAL (PRIMARY) HYPERTENSION Qualifiers: Hypertension type: essential hypertension Qualified Code(s): I10 - Essential (primary) hypertension
[2019-09-28] MEDS ORDERED: PT OWN MED DRAWER 7, Y5N ONE ×2 (08:10→20:56)
[2019-09-28] MEDS: KCL 10 MEQ IVPB 10 MEQ/100 ML INFUS.BAG IVPB SCH ×2 (08:30→09:35)
[2019-09-28] MEDS: PANTOPRAZOLE SODIUM 40 MG VIAL IVPUSH SCH (09:36)
[2019-09-28] MEDS: MUPIROCIN 2% TOPICAL OINTMENT FOR DECOLONIZATION NS SCH ×2 (09:36→21:24)
[2019-09-28] MEDS: ERTAPENEM SODIUM 1 GM in SODIUM CHLORIDE 50 ML IVPB SCH ×2 (10:00→21:30)
[2019-09-28] MEDS: LISINOPRIL 10 MG TABLET (FP) PO SCH ×2 (10:02→21:25)
--- NOTE | 2019-09-28 10:14 | PN ---
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 (short form) - Note 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: ANESTHESIOLOGIST NOTE Patient seen and examined. AAOX3. Anesthesia consent signed in the chart. Explained to the patient the DNR/DNI will be rescinded in the operating room. Pat understood and agreed.
[2019-09-28] MEDS ORDERED: fentaNYL CITRATE 250 MCG/5 ML VIAL ONE (11:11)
[2019-09-28] MEDS ORDERED: SUCCINYLCHOLINE CHLORIDE 200 MG/10 ML SYRINGE ONE (11:11)
[2019-09-28] MEDS ORDERED: PROPOFOL 20 ML ONE (11:11)
[2019-09-28] MEDS ORDERED: ROCURONIUM BROMIDE 50 MG/5 ML SYRINGE ONE (11:11)
--- NOTE | 2019-09-28 12:01 | PN ---
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 (short form) - Note 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: Chief Complaint: volvulus/abd pain History of Present Illness: resting comfortably. denies cp, sob, palp, swelling Current Medications Generic Name Dose Route Start Last Admin Trade Name Stacie PRN Reason Stop Dose Admin Chlorhexidine Gluconate 1 applic 09/24/19 22:00 09/27/19 21:29 Hibiclens For Decolonization - TP Not Given HS ANAEBL Ertapenem 1 gm/ Sodium 50 mls @ 100 mls/hr 09/24/19 22:00 09/28/19 10:00 Chloride IVPB 100 mls/hr HS ANABEL Administration Insulin Aspart 1 vial 09/24/19 16:30 09/28/19 11:39 Novolog Vial Sliding Scale - SQ Not Given ACHS [facility] Protocol Lisinopril 20 mg 09/27/19 22:00 09/28/19 10:02 Prinivil PO 20 mg BID [facility] Administration Mupirocin 1 applic 09/24/19 22:00 09/28/19 09:36 Bactroban Ointment (For Decolonization) - NS 09/29/19 21:59 1 applic BID [facility] Administration Ondansetron HCl 4 mg 09/24/19 14:32 09/26/19 07:13 Zofran Injection IVPUSH 4 mg Q4H PRN Administration NAUSEA AND/OR VOMITING Pantoprazole Sodium 40 mg 09/25/19 10:00 09/28/19 09:36 Protonix Iv IVPUSH 40 mg DAILY [facility] Administration Vital Signs Period Temp Pulse Resp BP Sys/Grossman Pulse Ox Last 24 Hr 98.3 F-98.6 F 73-97 9-22 127-171/49-76 92-100 Constitutional: Yes: Well Nourished, No Distress, Calm Cardiovascular: Yes: Regular Rate and Rhythm. No: Murmur Respiratory: Yes: Regular. No: Accessory Muscle Use Extremities: No: Cold Edema: No Neurological: Yes: Alert, Oriented Psychiatric: No: Agitated no jaundice diaphoresis Labs: CBC, BMP 09/28/19 05:20 09/28/19 05:20 Assessment/Plan ecg: sr nl intervals no ischemic changes cxr: no sig chf Echo 09/27: nl LV, RV. valves WNL tele: sr a/p: 79 f hx htn, hld, dm, sent from ct for abd pain. sigmoid volvulus, preop CV eval: -no signs acs. -volvulus resolving, plan for surgery per dr shipley -Revised CV Risk Index = 1, decr functional capacity. no signs/sx of active CAD/CHF, echo unremarkable. may proceed with surgery, at acceptable CV risk. arrhythmia: -slow, irregular rhythm overnight with poor baseline: ? sinus arrhythmia vs slow PAFib -will not start AC in absence of definitive AF on tele (note frequent APCs at times as well, not to be confused with AF) -cont tele monitoring (remains benign) htn: -cont current meds positive trop: -borderline trop elevation with flat trend and nl ck, not c/w acs. ecg w/o ischemic changes. -normal LV fxn
--- NOTE | 2019-09-28 12:39 | PN ---
Teaching Attending Note Name of Resident: Kaylie Salazar ATTENDING PHYSICIAN STATEMENT I saw and evaluated the patient. I reviewed the resident's note and discussed the case with the resident. I agree with the resident's findings and plan as documented. SUBJECTIVE: Pt seen and examined in the ICU. For OR today. No abdominal pain, nausea or vomiting. Rectal tube in place. OBJECTIVE: Vital Signs Period Temp Pulse Resp BP Sys/Grossman Pulse Ox Last 24 Hr 98.3 F-98.6 F 73-97 9-22 127-171/49-76 92-100 Intake & Output 09/25/19 09/26/19 09/27/19 09/28/19 23:59 23:59 23:59 23:59 Intake Total 500 1900 1010 50 Output Total 9143 977 2706 300 Balance -1000 1400 -365 -250 Weight 58.9 kg 58.513 kg 58.967 kg Gen: NAD at rest Heart: RRR Lung: decreased breath sounds at the bases Abd: soft, nontender Ext: no edema CBC, BMP 09/28/19 05:20 09/28/19 05:20 Active Medications Chlorhexidine Gluconate (Hibiclens For Decolonization -) 1 applic TP [facility] Last Admin: 09/27/19 21:29 Dose: Not Given Documented by: Ertapenem 1 gm/ Sodium (Chloride) 50 mls @ 100 mls/hr IVPB [facility] Last Admin: 09/28/19 10:00 Dose: 100 mls/hr Documented by: Insulin Aspart (Novolog Vial Sliding Scale -) 1 vial SQ [facility]; Protocol Last Admin: 09/28/19 11:39 Dose: Not Given Documented by: Lisinopril (Prinivil) 20 mg PO BID [facility] Last Admin: 09/28/19 10:02 Dose: 20 mg Documented by: Mupirocin (Bactroban Ointment (For Decolonization) -) 1 applic NS BID [facility] Stop: 09/29/19 21:59 Last Admin: 09/28/19 09:36 Dose: 1 applic Documented by: Ondansetron HCl (Zofran Injection) 4 mg IVPUSH Q4H PRN PRN Reason: NAUSEA AND/OR VOMITING Last Admin: 09/26/19 07:13 Dose: 4 mg Documented by: Pantoprazole Sodium (Protonix Iv) 40 mg IVPUSH DAILY [facility] Last Admin: 09/28/19 09:36 Dose: 40 mg Documented by: ASSESSMENT AND PLAN: Sigmoid Volvulus Lactic Acidosis +Troponins likely Demand Ischemia DM Parkinsons Anemia - for sigmoid resection today - continue antibiotics - replete lytes - O2 to keep SpO2 >90% - DVT prophylaxis - can monitor on floor
[2019-09-28] MEDS ORDERED: EPHEDRINE SULFATE/0.9% NACL/PF 50 MG/10 ML SYRINGE NR ONE (12:50)
[2019-09-28] MEDS ORDERED: INDOCYANINE GREEN 25 MG/10 ML VIAL IVPUSH ONE (13:00)
[2019-09-28] MEDS ORDERED: BUPIVACAINE LIPOSOME/PF (EXPAREL) 266 MG/20 ML VIAL ONE (13:25)
[2019-09-28] MEDS ORDERED: NEOSTIGMINE METHYLSULFATE 0.5 MG/ML - 10 ML MDV ONE (13:37)
[2019-09-28] MEDS ORDERED: BUPIVACAINE HCL/PF 0.5% (5 MG/ML) 30 ML VIAL IJ ONE ×2 (13:38)
[2019-09-28] MEDS ORDERED: BUPIVACAINE LIPOSOME/PF (EXPAREL) 266 MG/20 ML VIAL NR ONE ×2 (13:38)
--- NOTE | 2019-09-28 13:38 | PN ---
Physical Exam: SUBJECTIVE: Patient seen and examined. She denies any pain at this time. OBJECTIVE: Vital Signs Period Temp Pulse Resp BP Sys/Grossman Pulse Ox Last 24 Hr 98.3 F-98.6 F 73-97 9-22 127-171/49-76 92-100 GENERAL: The patient is awake, alert, and fully oriented, weak. HEAD: Normal with no signs of trauma. EYES: PERRL, extraocular movements intact, conjunctiva clear. ENT: Ears normal, nares patent, moist mucous membranes. NECK: Trachea midline, full range of motion. LUNGS: Clear to auscultation bilaterally. on NC. HEART: Regular rate and rhythm, no murmur appreciated. ABDOMEN: Soft, nontender, nondistended, normoactive bowel sounds, no ecchymosis or scars. EXTREMITIES: Warm, well-perfused, no edema. NEUROLOGICAL: Cranial nerves II through XII grossly intact. Soft speech. PSYCH: Normal mood, normal affect. SKIN: Warm, dry, normal turgor. Laboratory Results - last 24 hr 09/27/19 09/27/19 09/27/19 16:59 20:06 20:06 WBC 12.3 H RBC 3.22 L Hgb 10.1 L Hct 31.2 L MCV 96.7 H MCH 31.4 MCHC 32.5 RDW 14.9 Plt Count 343 MPV 9.3 PT with INR INR Sodium 139 Potassium 3.7 Chloride 101 Carbon Dioxide 29 Anion Gap 8 BUN 12.3 Creatinine 0.5 L Est GFR (CKD-EPI)AfAm 108.20 Est GFR (CKD-EPI)NonAf 93.36 POC Glucometer 131 Random Glucose 177 H Calcium 8.4 L Phosphorus Magnesium Total Bilirubin AST ALT Alkaline Phosphatase Total Protein Albumin Blood Type Antibody Screen 09/27/19 09/28/19 09/28/19 21:25 05:20 05:20 WBC 9.3 RBC 3.24 L Hgb 10.1 L Hct 30.9 L MCV 95.2 MCH 31.2 MCHC 32.8 RDW 14.8 Plt Count 326 MPV 9.6 PT with INR 11.40 INR 0.97 Sodium Potassium Chloride Carbon Dioxide Anion Gap BUN Creatinine Est GFR (CKD-EPI)AfAm Est GFR (CKD-EPI)NonAf POC Glucometer 146 Random Glucose Calcium Phosphorus Magnesium Total Bilirubin AST ALT Alkaline Phosphatase Total Protein Albumin Blood Type Antibody Screen 09/28/19 09/28/19 05:20 05:20 WBC RBC Hgb Hct MCV MCH MCHC RDW Plt Count MPV PT with INR INR Sodium 138 Potassium 3.4 L Chloride 100 Carbon Dioxide 28 Anion Gap 10 BUN 13.2 Creatinine 0.6 Est GFR (CKD-EPI)AfAm 101.90 Est GFR (CKD-EPI)NonAf 87.92 POC Glucometer Random Glucose 184 H Calcium 8.3 L Phosphorus 2.4 L Magnesium 2.1 Total Bilirubin 0.6 AST 35 ALT 20 Alkaline Phosphatase 124 H Total Protein 4.8 L Albumin 1.9 L Blood Type O POSITIVE Antibody Screen Negative Active Medications Generic Name Dose Route Start Last Admin Trade Name Freq PRN Reason Stop Dose Admin Chlorhexidine Gluconate 1 applic 09/24/19 22:00 09/27/19 21:29 Hibiclens For Decolonization - TP Not Given HS ANA[facility]EL Ertapenem 1 gm/ Sodium 50 mls @ 100 mls/hr 09/24/19 22:00 09/28/19 10:00 Chloride IVPB 100 mls/hr HS [facility] Administration Insulin Aspart 1 vial 09/24/19 16:30 09/28/19 11:39 Novolog Vial Sliding Scale - SQ Not Given ACHS [facility] Protocol Lisinopril 20 mg 09/27/19 22:00 09/28/19 10:02 Prinivil PO 20 mg BID [facility] Administration Mupirocin 1 applic 09/24/19 22:00 09/28/19 09:36 Bactroban Ointment (For Decolonization) - NS 09/29/19 21:59 1 applic BID [facility] Administration Ondansetron HCl 4 mg 09/24/19 14:32 09/26/19 07:13 Zofran Injection IVPUSH 4 mg Q4H PRN Administration NAUSEA AND/OR VOMITING Pantoprazole Sodium 40 mg 09/25/19 10:00 09/28/19 09:36 Protonix Iv IVPUSH 40 mg DAILY [facility]NA[facility] Administration ASSESSMENT/PLAN: Pti is a 79 y/o female with T2DM and Parkinson's disease who presented to the ED with progressive abdominal distention and abdominal pain found to have a sigmoid volvulus. #Neuro Parkinson's disease -Alert and oriented -Not currently on Sinemet, will resume once tolerating PO. #Cardio HTN Borderline troponin elevation Hypertension -Cardio consulted; cleared for surgery -Follow echo -lisinopril 20mg PO BID #Pulm -Supplemental O2 to keep SpO2 >90% #GI Abdominal distention with concern for ischemic bowel -CT abdomen/pelvis - suggestive of sigmoid volvulus. No evidence of small bowel obstruction. Significant dilation of distal esophagus down the the level of the GE junction. 3.8 cm fluid collection within tortuous distal esophagus. -GI consulted. Rectal tube for decompression. -Surgery consulted. Sigmoid resection, stable post-op -Zofran PRN for nausea -Protonix IV #Endo T2DM -BGMs -SSI #Renal Hypokalemia -supplement -continue to follow BMPs #ID Sigmoid volvulus with leukocytosis Multiple abx allergies -5 days ertapenem -ID following #Ppx -GI: protonix -DVT: SCDs #FEN -LR 75mL/hr -monitor K -NPO dispo for transfer to med/surg Pt is DNR/DNI but will be rescinded during surgery. Visit type - Emergency Visit Emergency Visit: Yes ED Registration Date: 09/24/19 Care time: The patient presented to the Emergency Department on the above date and was hospitalized for further evaluation of their emergent condition. - New Patient This patient is new to me today: Yes Date on this admission: 09/28/19 - Critical Care Critical Care patient: Yes Total Critical Care Time (in minutes): 36 Critical Care Statement: The care of this patient involved high complexity decision making to prevent further life threatening deterioration of the patient's condition and/or to evaluate & treat vital organ system(s) failure or risk of failure. - Medication Review Med list reviewed for High Risk Meds patients 65 and older: Yes ATTENDING PHYSICIAN STATEMENT I saw and evaluated the patient. I reviewed the resident's note and discussed the case with the resident. I agree with the resident's findings and plan as documented. SUBJECTIVE: OBJECTIVE: ASSESSMENT AND PLAN:
--- NOTE | 2019-09-28 14:03 | OP ---
Operative Note - Note: Operative Date: 09/28/19 Pre-Operative Diagnosis: sigmoid volvulus Operation: laparoscopic sigmoid colon resection Findings: volvulus of sigmoid colon Post-Operative Diagnosis: Same as Pre-op Surgeon: Avelino Jeffery Swing Ride Operator: Kusum Silverman Anesthesia: General Specimens Removed: portion of sigmoid colon Estimated Blood Loss (mls): 20 Operative Report Dictated: Yes
--- NOTE | 2019-09-28 14:18 | SURG ---
Surgery Retail Loan Officer Note Retail Loan Officer: Kusum Silverman PA-C Date of Service: 09/28/19 Diagnosis: sigmoid volvulus Procedure: laparoscopic sigmoid colon resection I was present for the entirety of the operative procedure. For further detail, please refer to operative report. Visit type - Case Type Case Type: ED Admission - Emergency Emergency Visit: Yes ED Registration Date: 09/24/19 Care time: The patient presented to the Emergency Department on the above date and was hospitalized for further evaluation of their emergent condition. - New patient This patient is new to me today: Yes Date on this admission: 09/28/19
[2019-09-28] MEDS ORDERED: METOPROLOL TARTRATE 5 MG/5 ML VIAL ONE (15:13)
[2019-09-28] MEDS: LACTATED RINGERS SOLUTION 1,000 ML/1,000 ML INFUS.BAG IV SCH (15:44)
[2019-09-28] MEDS ORDERED: ACETAMINOPHEN 1000 MG/100 ML VIAL (NON FORMULARY) IVPB PRN (16:29)
--- NOTE | 2019-09-28 16:59 | PN ---
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 (short form) - Note 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: irish extubated s/p laparoscopic sigmoid resection for volvulus Vital Signs Period Temp Pulse Resp BP Sys/Grossman Pulse Ox Last 24 Hr 97.2 F-98.6 F 73-97 9-22 127-171/49-76 92-100 cor-rrr lungs clear ext no edema CBC, BMP 09/28/19 05:20 09/28/19 05:20 Microbiology 09/24/19 18:04 Blood - Peripheral Venous Blood Culture - Preliminary NO GROWTH OBTAINED AFTER 72 HOURS, INCUBATION TO CONTINUE FOR 2 DAYS. 09/24/19 17:34 Blood - Peripheral Venous Blood Culture - Preliminary NO GROWTH OBTAINED AFTER 72 HOURS, INCUBATION TO CONTINUE FOR 2 DAYS. imp/reccd Sigmoid volvulus-s/p surgery today Multiple antibioitic allergies DNR/DNR continue ertapenem postop-?d/c in am, will d/w surgery Problem List - Problems (1) Sigmoid volvulus Code(s): K56.2 - VOLVULUS (2) Allergy to multiple antibiotics Code(s): Z88.1 - ALLERGY STATUS TO OTHER ANTIBIOTIC AGENTS STATUS
--- NOTE | 2019-09-28 17:23 | PATH ---
Surgical Pathology Report Patient Name: LATONIA DUVAL [facility]. Rec. #: [id number] /Age/Gender: 1940 (Age: 79) / F Account: [id number] Location: ICU ROAD ADVISOR Taken: 09/25/2019 Received: 09/25/2019 Reported: 09/28/2019 Physicians: Livan Nolan M.D. Specimen(s) Received SIGMOID VOLVULUS SITE Clinical History Sigmoid volvulus Postoperative diagnosis: Sigmoid volvulus, diverticulosis, sigmoid polyp, rectal polyp Final Diagnosis SIGMOID COLON, VOLVULUS SITE, BIOPSY: COLONIC MUCOSA WITH MILD VASCULAR CONGESTION, FOCAL EXTRAVASATION OF RED BLOOD CELLS WITHIN LAMINA PROPRIA, AND SUPERFICIAL HYPERPLASTIC CHANGE. Electronically Signed Diana Weiss M.D. Gross Description Received in formalin, labeled "biopsy sigmoid volvulus" are 2 ace, irregular portions of soft tissue measuring 0.2 and 0.3 cm. in greatest dimension. The specimens are submitted in toto in one cassette. /09/25/2019 [facility]09/25/2019
[2019-09-28] MEDS: CHLORHEXIDINE GLUCONATE 4% CLEANSER FOR DECOLONIZATION TP SCH (21:24)
[2019-09-28] MEDS: HEPARIN NA (PORCINE) 5,000 UNITS/ML 1ML VIAL SQ SCH (21:24)
[2019-09-29 05:58] LABS: BASO % 0.3 % (0-2.0); EOS % 2.7 % (0-4.5); HEMOGLOBIN 9.9 GM/dL (10.7-15.3); LYMPH % 4.8 % (8-40); MCH 30.7 pg (25.7-33.7); MCHC 32.1 g/dl (32.0-36.0); MEAN CELL VOLUME 95.8 fl (80-96); MEAN PLT VOLUME 9.3 fl (7.5-11.1); MONO % 4.3 % (3.8-10.2); NEUT % 87.9 % (42.8-82.8); PLATELET COUNT 339 K/MM3 (134-434); RBC 3.24 M/mm3 (3.60-5.2); RDW 14.8 % (11.6-15.6); WHITE BLOOD COUNT 12.8 K/mm3 (4.0-10.0)
[2019-09-29] MEDS: INSULIN SLIDING SCALE (NOVOLOG) 1 VIAL SQ SCH ×4 (06:13→22:58)
[2019-09-29 06:35] LABS: ALBUMIN 1.8 g/dl (3.4-5.0); BILIRUBIN,TOTAL 0.6 mg/dL (0.2-1); BLOOD UREA NITROGEN 14.8 mg/dL (7-18); CALCIUM 8.2 mg/dL (8.5-10.1); CREATININE 0.6 mg/dL (0.55-1.3); MAGNESIUM 1.9 mg/dL (1.8-2.4); PHOSPHOROUS 2.7 mg/dL (2.5-4.9); POTASSIUM 3.5 mmol/L (3.5-5.1); TOT PROT 4.5 g/dl (6.4-8.2)
[2019-09-29] MEDS ORDERED: ALBUTEROL SO4 2.5/IPRATROPIUM 0.5 INH SOL 3 ML VIAL.NEB. NEB ONE (06:54)
--- NOTE | 2019-09-29 10:07 | PN ---
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 (short form) - Note 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: Anesthesia Post op/pain Pt seen and examined S:Alert and awake comfortable O: Vital Signs Temperature 98.2 F 09/28/19 22:00 Pulse Rate 86 09/29/19 08:00 Respiratory Rate 10 09/29/19 08:00 Blood Pressure 152/65 09/29/19 08:00 O2 Sat by Pulse Oximetry (%) 100 09/29/19 08:00 CBC, BMP 09/29/19 05:15 09/29/19 05:15 A/P Current Active Problems ASHD (arteriosclerotic heart disease) (Acute) Allergy to multiple antibiotics (Acute) Diabetes 1.5, managed as type 1 (Acute) HTN (hypertension) (Acute) Hypokalemia (Acute) Sigmoid volvulus (Acute) Volvulus of descending colon (Acute) s/p lap sigmoid resection Doing well post op Continue current care. Dexter Wang MD
--- NOTE | 2019-09-29 10:29 | PN ---
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 (short form) - Note 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: Surgery POD #1 laparoscopic sigmoid colon resection. Patient seen and examined on AM rounds. Nursing reports the patient had some coughing while taking PO meds last night and may have aspirated a little. No respiratory issues overnight and patient remained stable but audible wheezing this morning and respiratory is at the bedside getting ready to administer treatment. Patient denies any pain and states she is mostly thirsty. Vital Signs Temp 98.2 F 09/28/19 22:00 Pulse 86 09/29/19 08:00 Resp 10 09/29/19 08:00 BP 152/65 09/29/19 08:00 Pulse Ox 100 09/29/19 08:00 Intake & Output 09/28/19 09/28/19 09/29/19 11:59 23:59 11:59 Intake Total 50 450 1050 Output Total 550 50 Balance -300 340 0675 Intake: IV 0 900 LACTATED RINGERS SOLUTION 900 1,000 ml In 1,000 ml @ 75 mls/hr IV ASDIR [facility]NA[facility]EL Rx #:[id number] IVPB 50 450 100 Oral 50 Output: Urine 550 Daniels 300 Estimated Blood Loss 50 Other: Voiding Method Indwelling Catheter Indwelling Catheter Indwelling Catheter Bowel Movement Yes Yes # Bowel Movements 1 CBC, BMP 09/29/19 05:15 09/29/19 05:15 PE: Patient resting comfortably- rousable and cooperative. NAD Unlabored resp on 2L NC with audible wheezes throughout B/L lungs, ABD: Soft, supple, ND with no areas of acute tenderness. Incisions c/d/i with surrounding tissue intact and no tracking erythema, or evidence of collection or active d/c Flexseal rectal tube in place removed thie morning with no issues. B/L LE compatments soft, supple and non-tender with + DP pulses. ABD X-Ray 09/28: Free air is not seen. There is some air distention of the bowel. The bowel that appear to be distended is mainly small bowel seen centrally within the pelvis could represent a focal ileus or developing SBO. Problem List - Problems (1) Volvulus of descending colon Assessment/Plan: POD #1 laparoscopic sigmoid colon resection with question of aspiration while taking meds last night. Patient remains stable, respiratory following. -Strict NPO -Speech and swallow consult -Daily abdominal x-rays -Close observation for signs of pneumonia -encourage IS Evaluation and plan discussed with Dr Jeffery Code(s): K56.2 - VOLVULUS
[2019-09-29] MEDS: MUPIROCIN 2% TOPICAL OINTMENT FOR DECOLONIZATION NS SCH (10:31)
[2019-09-29] MEDS: HEPARIN NA (PORCINE) 5,000 UNITS/ML 1ML VIAL SQ SCH ×2 (10:31→22:54)
[2019-09-29] MEDS: PANTOPRAZOLE SODIUM 40 MG VIAL IVPUSH SCH (10:32)
[2019-09-29] MEDS: LISINOPRIL 10 MG TABLET (FP) PO SCH ×3 (10:32→22:54)
--- NOTE | 2019-09-29 12:11 | CONSULT ---
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 On coffe grounds vomiting. In the ER CT scan of the abdimen is suggestive of sigmoid volvulus and rigid sig and rectal tube for decompression performed. Lactic acid 3.0 noted. History of Present Illness: DM type 2, previously on Insulin. Atrophic kidney, history of cystitis, uti, hydronephrosis. Parkinson's disease. HTN Gait disorder. Falling. HLD, Multiple allergy. DNR/DNI Left hip fracture Syncope Compression fracture L1 Hydrocephalus on CT scan 2014 s/p laparoscopic sigmoid colon resection 09/27 Nursing reports the patient had some coughing when taking PO meds with water last night and may have aspirated.Reported audible wheezes. She was groggy, recently extubated following surgery. Suctioned, was gurgly, HR to 40's. 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
--- NOTE | 2019-09-29 12:19 | PN ---
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 (short form) - Note 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: PULMONARY s/p sigmoid resection. Awake but very weak. No fevers recorded. Vital Signs Period Temp Pulse Resp BP Sys/Grossman Pulse Ox Last 24 Hr 97.0 F-98.2 F 74-99 9-22 128-165/36-71 99-100 Gen: NAD but weak Heart: RRR Lung: decreased breath sounds at the bases Abd: soft, nontender, incisions clean Ext: no edema CBC, BMP 09/29/19 05:15 09/29/19 05:15 Active Medications Acetaminophen (Ofirmev Injection -) 1,000 mg IVPB Q6H PRN PRN Reason: PAIN LEVEL 1-5 Last Admin: 09/28/19 17:30 Dose: 1,000 mg Documented by: Chlorhexidine Gluconate (Hibiclens For Decolonization -) 1 applic TP HS [facility] Last Admin: 09/28/19 21:24 Dose: Not Given Documented by: Heparin Sodium (Porcine) (Heparin -) 5,000 unit SQ BID [facility] Last Admin: 09/29/19 10:31 Dose: 5,000 unit Documented by: Ertapenem 1 gm/ Sodium (Chloride) 50 mls @ 100 mls/hr IVPB HS [facility] Last Admin: 09/28/19 21:30 Dose: 100 mls/hr Documented by: Lactated Ringer's (Lactated Ringers Solution) 1,000 ml in 1,000 mls @ 75 mls/hr IV ASDIR [facility] Last Admin: 09/28/19 15:44 Dose: 75 mls/hr Documented by: Insulin Aspart (Novolog Vial Sliding Scale -) 1 vial SQ [facility]; Protocol Last Admin: 09/29/19 06:13 Dose: Not Given Documented by: Lisinopril (Prinivil) 20 mg PO BID [facility] Last Admin: 09/28/19 21:25 Dose: 20 mg Documented by: Mupirocin (Bactroban Ointment (For Decolonization) -) 1 applic NS BID [facility] Stop: 09/29/19 21:59 Last Admin: 09/29/19 10:31 Dose: 1 applic Documented by: Ondansetron HCl (Zofran Injection) 4 mg IVPUSH Q4H PRN PRN Reason: NAUSEA AND/OR VOMITING Last Admin: 09/26/19 07:13 Dose: 4 mg Documented by: Pantoprazole Sodium (Protonix Iv) 40 mg IVPUSH DAILY [facility] Last Admin: 09/29/19 10:32 Dose: 40 mg Documented by: A/P SUBJECTIVE: Pt seen and examined in the ICU. For OR today. No abdominal pain, nausea or vomiting. Rectal tube in place. OBJECTIVE: Vital Signs Period Temp Pulse Resp BP Sys/Grossman Pulse Ox Last 24 Hr 98.3 F-98.6 F 73-97 9-22 127-171/49-76 92-100 Intake & Output 09/25/19 09/26/19 09/27/19 09/28/19 23:59 23:59 23:59 23:59 Intake Total 500 1900 1010 50 Output Total 8646 608 6133 300 Balance -1000 1400 -365 -250 Weight 58.9 kg 58.513 kg 58.967 kg Gen: NAD at rest Heart: RRR Lung: decreased breath sounds at the bases Abd: soft, nontender Ext: no edema CBC, BMP 09/28/19 05:20 09/28/19 05:20 Active Medications Chlorhexidine Gluconate (Hibiclens For Decolonization -) 1 applic TP [facility] Last Admin: 09/27/19 21:29 Dose: Not Given Documented by: Ertapenem 1 gm/ Sodium (Chloride) 50 mls @ 100 mls/hr IVPB [facility] Last Admin: 09/28/19 10:00 Dose: 100 mls/hr Documented by: Insulin Aspart (Novolog Vial Sliding Scale -) 1 vial SQ [facility]; Protocol Last Admin: 09/28/19 11:39 Dose: Not Given Documented by: Lisinopril (Prinivil) 20 mg PO BID [facility] Last Admin: 09/28/19 10:02 Dose: 20 mg Documented by: Mupirocin (Bactroban Ointment (For Decolonization) -) 1 applic NS BID [facility] Stop: 09/29/19 21:59 Last Admin: 09/28/19 09:36 Dose: 1 applic Documented by: Ondansetron HCl (Zofran Injection) 4 mg IVPUSH Q4H PRN PRN Reason: NAUSEA AND/OR VOMITING Last Admin: 09/26/19 07:13 Dose: 4 mg Documented by: Pantoprazole Sodium (Protonix Iv) 40 mg IVPUSH DAILY [facility] Last Admin: 09/28/19 09:36 Dose: 40 mg Documented by: ASSESSMENT AND PLAN: Sigmoid Volvulus s/p sigmoid resection POD #1 Lactic Acidosis +Troponins likely Demand Ischemia DM Parkinsons Anemia - continue antibiotics - replete lytes - O2 to keep SpO2 >90% - PO when ok with surgery - aspiration precautions - DVT prophylaxis - can monitor on floor
--- NOTE | 2019-09-29 13:46 | PN ---
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, Physician Chief Complaint: POST op day 1 s/p lap sigmoidectomy. Very weak. + trace wheezing. History of Present Illness: DM type 2, previously on Insulin. Atrophic kidney, history of cystitis, uti, hydronephrosis. Parkinson's disease. HTN Gait disorder. Falling. HLD, Multiple allergy. DNR/DNI Left hip fracture Syncope Compression fracture L1 Hydrocephalus on CT scan 2014 - Current Medication List Current Medications: Active Medications Acetaminophen (Ofirmev Injection -) 1,000 mg IVPB Q6H PRN PRN Reason: PAIN LEVEL 1-5 Last Admin: 09/28/19 17:30 Dose: 1,000 mg Documented by: Albuterol/Ipratropium (Duoneb -) 1 amp NEB Q6H [facility] Chlorhexidine Gluconate (Hibiclens For Decolonization -) 1 applic TP HS [facility] Last Admin: 09/28/19 21:24 Dose: Not Given Documented by: Heparin Sodium (Porcine) (Heparin -) 5,000 unit SQ BID [facility] Last Admin: 09/29/19 10:31 Dose: 5,000 unit Documented by: Ertapenem 1 gm/ Sodium (Chloride) 50 mls @ 100 mls/hr IVPB HS [facility] Last Admin: 09/28/19 21:30 Dose: 100 mls/hr Documented by: Lactated Ringer's (Lactated Ringers Solution) 1,000 ml in 1,000 mls @ 75 mls/hr IV ASDIR [facility] Last Admin: 09/28/19 15:44 Dose: 75 mls/hr Documented by: Insulin Aspart (Novolog Vial Sliding Scale -) 1 vial SQ [facility]; Protocol Last Admin: 09/29/19 06:13 Dose: Not Given Documented by: Lisinopril (Prinivil) 20 mg PO BID [facility] Last Admin: 09/28/19 21:25 Dose: 20 mg Documented by: Mupirocin (Bactroban Ointment (For Decolonization) -) 1 applic NS BID [facility] Stop: 09/29/19 21:59 Last Admin: 09/29/19 10:31 Dose: 1 applic Documented by: Ondansetron HCl (Zofran Injection) 4 mg IVPUSH Q4H PRN PRN Reason: NAUSEA AND/OR VOMITING Last Admin: 09/26/19 07:13 Dose: 4 mg Documented by: Pantoprazole Sodium (Protonix Iv) 40 mg IVPUSH DAILY [facility] Last Admin: 09/29/19 10:32 Dose: 40 mg Documented by: - Objective Vital Signs: Vital Signs Temperature 97.4 F L 09/29/19 10:00 Pulse Rate 99 H 09/29/19 10:00 Respiratory Rate 12 09/29/19 10:00 Blood Pressure 145/54 L 09/29/19 10:00 O2 Sat by Pulse Oximetry (%) 100 09/29/19 08:00 Constitutional: Yes: Moderate Distress, Pallor, Thin Eyes: Yes: Conjunctiva Clear, EOM Intact HENT: Yes: Atraumatic, Normocephalic Neck: Yes: Supple, Trachea Midline Cardiovascular: Yes: Regular Rate and Rhythm, S1, S2 Respiratory: Yes: Diminished, On Nasal O2, Rhonchi, Wheezes Gastrointestinal: No: Normal Bowel Sounds, Distention ...Rectal Exam: Yes: Deferred, Other (Incisions clean.) Genitourinary: Yes: Daniels Present Musculoskeletal: No: Joint Stiffness, Joint Swelling Extremities: Yes: WNL Neurological: Yes: Alert, Oriented. No: Aphasia, Dysarthria ...Motor Strength: WNL Psychiatric: Yes: WNL. No: Agitated, Suicidal Ideation Labs: CBC, BMP 09/29/19 05:15 09/29/19 05:15 INR, PTT INR 0.97 (0.83-1.09) 09/28/19 05:20 Laboratory Results - last 24 hr 09/28/19 09/28/19 09/29/19 15:10 21:45 05:15 WBC 12.8 H RBC 3.24 L Hgb 9.9 L Hct 31.0 L MCV 95.8 MCH 30.7 MCHC 32.1 RDW 14.8 Plt Count 339 MPV 9.3 Absolute Neuts (auto) 11.3 H Neutrophils % 87.9 H Lymphocytes % 4.8 L D Monocytes % 4.3 Eosinophils % 2.7 Basophils % 0.3 Nucleated RBC % 0 Sodium Potassium Chloride Carbon Dioxide Anion Gap BUN Creatinine Est GFR (CKD-EPI)AfAm Est GFR (CKD-EPI)NonAf POC Glucometer 190 196 Random Glucose Calcium Phosphorus Magnesium Total Bilirubin AST ALT Alkaline Phosphatase Total Protein Albumin 09/29/19 09/29/19 05:15 05:40 WBC RBC Hgb Hct MCV MCH MCHC RDW Plt Count MPV Absolute Neuts (auto) Neutrophils % Lymphocytes % Monocytes % Eosinophils % Basophils % Nucleated RBC % Sodium 140 Potassium 3.5 Chloride 102 Carbon Dioxide 22 Anion Gap 16 BUN 14.8 Creatinine 0.6 Est GFR (CKD-EPI)AfAm 101.90 Est GFR (CKD-EPI)NonAf 87.92 POC Glucometer 185 Random Glucose 222 H Calcium 8.2 L Phosphorus 2.7 Magnesium 1.9 Total Bilirubin 0.6 AST 32 ALT 18 Alkaline Phosphatase 117 Total Protein 4.5 L Albumin 1.8 L Problem List - Problems (1) Sigmoid volvulus Assessment/Plan: S/P Sigmoidectomy, s/p colonoscopy by Dr coronado on 09/25/19. Ertapenem IV NPO. Code(s): K56.2 - VOLVULUS (2) Diabetes 1.5, managed as type 1 Assessment/Plan: Follow BGM and cover with Novolog Code(s): E13.9 - OTHER SPECIFIED DIABETES MELLITUS WITHOUT COMPLICATIONS (3) ASHD (arteriosclerotic heart disease) Assessment/Plan: Old MD. Cardiac enzymes. Cardiology consult, ECHO Troponin 0.2-0.2 Elevated BNP Code(s): I25.10 - ATHSCL HEART DISEASE OF [place] CORONARY ARTERY W/O ANG PCTRS (4) Hypokalemia Assessment/Plan: Replace K IV NPO. Code(s): E87.6 - HYPOKALEMIA (5) HTN (hypertension) Assessment/Plan: Lisinopril started by cardiology Code(s): I10 - ESSENTIAL (PRIMARY) HYPERTENSION Qualifiers: Hypertension type: essential hypertension Qualified Code(s): I10 - Esse ntial (primary) hypertension (6) COPD with asthma Assessment/Plan: Duonebs nebs Problems reviewed: Yes Code(s): J44.9 - CHRONIC OBSTRUCTIVE PULMONARY DISEASE, UNSPECIFIED
--- NOTE | 2019-09-29 14:03 | PN ---
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 (short form) - Note 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: Chief Complaint: volvulus/abd pain History of Present Illness: no cp, sob, palp, swelling Current Medications Generic Name Dose Route Start Last Admin Trade Name Freq PRN Reason Stop Dose Admin Acetaminophen 1,000 mg 09/28/19 16:29 09/28/19 17:30 Ofirmev Injection - IVPB 1,000 mg Q6H PRN Administration PAIN LEVEL 1-5 Albuterol/Ipratropium 1 amp 09/29/19 13:45 Duoneb - NEB Q6H [facility] Chlorhexidine Gluconate 1 applic 09/24/19 22:00 09/28/19 21:24 Hibiclens For Decolonization - TP Not Given HS [facility] Heparin Sodium (Porcine) 5,000 unit 09/28/19 22:00 09/29/19 10:31 Heparin - SQ 5,000 unit BID [facility] Administration Ertapenem 1 gm/ Sodium 50 mls @ 100 mls/hr 09/24/19 22:00 09/28/19 21:30 Chloride IVPB 100 mls/hr HS [facility] Administration Lactated Ringer's 1,000 ml in 1,000 mls @ 75 mls/hr 09/28/19 15:00 09/28/19 15:44 Lactated Ringers Solution IV 75 mls/hr ASDIR [facility] Administration Potassium Chloride 10 meq in 100 mls @ 100 mls/hr 09/29/19 14:00 Potassium Chloride 10 Meq Premix Ivpb - IVPB 09/29/19 15:59 Q60M [facility] Insulin Aspart 1 vial 09/24/19 16:30 09/29/19 06:13 Novolog Vial Sliding Scale - SQ Not Given ACHS [facility] Protocol Lisinopril 20 mg 09/27/19 22:00 09/28/19 21:25 Prinivil PO 20 mg BID [facility] Administration Mupirocin 1 applic 09/24/19 22:00 09/29/19 10:31 Bactroban Ointment (For Decolonization) - NS 09/29/19 21:59 1 applic BID [facility] Administration Ondansetron HCl 4 mg 09/24/19 14:32 09/26/19 07:13 Zofran Injection IVPUSH 4 mg Q4H PRN Administration NAUSEA AND/OR VOMITING Pantoprazole Sodium 40 mg 09/25/19 10:00 09/29/19 10:32 Protonix Iv IVPUSH 40 mg DAILY [facility] Administration Vital Signs Period Temp Pulse Resp BP Sys/Grossman Pulse Ox Last 24 Hr 97.0 F-98.2 F 74-99 9-22 128-165/36-71 99-100 Constitutional: Yes: Well Nourished, No Distress, Calm Cardiovascular: Yes: Regular Rate and Rhythm. No: Murmur Respiratory: Yes: Regular. No: Accessory Muscle Use Extremities: No: Cold Edema: No Neurological: Yes: Alert, Oriented Psychiatric: No: Agitated no jaundice diaphoresis Assessment/Plan ecg: sr nl intervals no ischemic changes cxr: no sig chf Echo 09/27: nl LV, RV. valves WNL tele: sinus, sinus tach a/p: 79 f hx htn, hld, dm, sent from [place] for abd pain. sigmoid volvulus, preop CV eval: -s/p lap sigmoid resection - manage per surgery arrhythmia: -slow, irregular rhythm at night with poor baseline: ? sinus arrhythmia vs slow PAFib -will not start AC in absence of definitive AF on tele (note frequent APCs at times as well, not to be confused with AF) -cont tele monitoring (remains benign) htn: -cont current meds positive trop: -borderline trop elevation with flat trend and nl ck, not c/w acs. ecg w/o ischemic changes. -normal LV fxn
[2019-09-29] MEDS: KCL 10 MEQ IVPB 10 MEQ/100 ML INFUS.BAG IVPB SCH (14:41)
[2019-09-29] MEDS: ALBUTEROL SO4 2.5/IPRATROPIUM 0.5 INH SOL 3 ML VIAL.NEB. NEB SCH ×2 (15:39→20:30)
[2019-09-29] MEDS: LACTATED RINGERS SOLUTION 1,000 ML/1,000 ML INFUS.BAG IV SCH (16:47)
[2019-09-29] MEDS: ONDANSETRON 4 MG/2 ML VIAL IVPUSH PRN (16:48)
--- NOTE | 2019-09-29 16:54 | PN ---
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 (short form) - Note 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: question of aspiration this am awake weak Vital Signs Period Temp Pulse Resp BP Sys/Grossman Pulse Ox Last 24 Hr 97.4 F-98.2 F 74-103 10-22 128-165/46-71 100-100 cor-rrr llungs decreased bs at bases abd soft,nt ext no edema CBC, BMP 09/29/19 05:15 09/29/19 05:15 Microbiology 09/24/19 18:04 Blood - Peripheral Venous Blood Culture - Preliminary NO GROWTH OBTAINED AFTER 96 HOURS, INCUBATION TO CONTINUE FOR 1 DAYS. 09/24/19 17:34 Blood - Peripheral Venous Blood Culture - Preliminary NO GROWTH OBTAINED AFTER 96 HOURS, INCUBATION TO CONTINUE FOR 1 DAYS. imp/reccd possible aspiration pneumonia Sigmoid volvulus-s/p surgery today Multiple antibioitic allergies DNR/DNR continue ertapenem postop-f/u swallowing evaluation Problem List - Problems (1) Sigmoid volvulus Code(s): K56.2 - VOLVULUS (2) Allergy to multiple antibiotics Code(s): Z88.1 - ALLERGY STATUS TO OTHER ANTIBIOTIC AGENTS STATUS
[2019-09-29] MEDS ORDERED: PT OWN MED DRAWER 7, Y5N ONE ×2 (19:27→22:39)
--- NOTE | 2019-09-29 21:19 | CONSULT ---
Admitting History and Physical - Admission History of Present Illness: Initial consult signed but incomplete. 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 On coffe grounds vomiting. In the ER CT scan of the abdimen is suggestive of sigmoid volvulus and rigid sig and rectal tube for decompression performed. Lactic acid 3.0 noted. History of Present Illness: DM type 2, previously on Insulin. Atrophic kidney, history of cystitis, uti, hydronephrosis. Parkinson's disease. HTN Gait disorder. Falling. HLD, Multiple allergy. DNR/DNI Left hip fracture Syncope Compression fracture L1 Hydrocephalus on CT scan 2014 s/p laparoscopic sigmoid colon resection 09/27 Nursing reports the patient had some coughing when taking PO meds with water last night and may have aspirated.Reported audible wheezes. She was groggy, recently extubated following surgery. Suctioned, was gurgly, HR to 40's. 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 Cognitively fairly intact. Reports reduced appetite and some swallowing difficulty over last month. She feels she choked on the pill last night as it was "too large". Selected Entries 09/29/19 09/29/19 09/29/19 00:00 02:00 04:00 Breakfast Temperature Pulse Rate 81 81 74 Blood Pressure 134/53 L 151/58 L 146/56 L O2 Sat by Pulse Oximetry (%) Oxygen Delivery Method 09/29/19 09/29/19 09/29/19 08:00 08:03 10:00 Breakfast NPO Temperature 97.4 F L Pulse Rate 86 99 H Blood Pressure 152/65 145/54 L O2 Sat by Pulse 100 Oximetry (%) Oxygen Delivery Nasal Cannula Method 09/29/19 09/29/19 09/29/19 12:00 14:00 15:38 Breakfast NPO Temperature Pulse Rate 103 H 102 H Blood Pressure 147/50 L 139/46 L O2 Sat by Pulse Oximetry (%) Oxygen Delivery Method 09/29/19 09/29/19 09/29/19 16:00 18:00 20:00 Breakfast Temperature 97.6 F Pulse Rate 96 H 103 H 93 H Blood Pressure 136/42 L 128/61 140/64 O2 Sat by Pulse 100 Oximetry (%) Oxygen Delivery Method 09/29/19 21:12 Breakfast Temperature Pulse Rate Blood Pressure O2 Sat by Pulse 100 Oximetry (%) Oxygen Delivery Nasal Cannula Method Laboratory Tests 09/28/19 09/29/19 05:20 05:15 WBC 9.3 12.8 H History Source: Patient, Significant Other - 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 Cardiovascular: Yes: HTN, Hyperlipdemia ...: No Endocrine: Yes: Diabetes Mellitus - Advance Directives Advance Directives: Yes: DNR - Smoking History Smoking history: Never smoked Have you smoked in the past 12 months: No - Alcohol/Substance Use Hx Alcohol Use: No - Social History ADL: Support Services History of Recent Travel: No History - Admission Reason For Visit: ABDOMINAL DISTENSION,VOLVULUS OF SIGMOID COLON - Diagnostics X-ray: Report Reviewed (worsening infiltrates both lungs, suspicious for aspiration PNA) - General Mental Status: Alert and Oriented, Awake and Alert, Able to Follow Commands Attention: Intact Ability to Follow Directions: Excellent Head/Neck Control: WFL - Hearing Hearing: Normal Speech Evaluation - Communication Primary Language: SAMOAN Communication: Yes: Dysarthria Oral Expression Ability: Yes: Mild Impairment, Moderate Impairment - Speech Production Dysarthria: Yes: Hypokinetic Able to Make Needs Known: Yes: WNL Intelligibility: Yes: Mildly Impaired - Speech Characteristics Voice Loudness: Mildly Soft/Quiet, Excessive Variation Voice Pitch: Yes: Normal Voice Phonatory-based Quality: Yes: Normal Speech Clarity: < 75% Nasal Resonance: Normal Articulation: Yes: Precise Voice, Other Observations: Yes: Inadequate Breath Support (intermittent sec to Parkinsons. Also, audible harsh inspiratory wheeze) - Language/Auditory Comprehension Follows: Yes: 2 Stage Simple Commands Observation: Able to respond to yes/no queries: Yes, Yes/No Confusion: No, Comprehends Conversational Speech: Yes - Language/Verbal Expression Functional Communication Status: Yes: Mildly Impaired - Swallow Evaluation/Bedside Assessment Current Nutritional Intake: NPO Oral Secretions: Yes: WFL Dentition: Yes: Adequate Facial Symmetry at Rest: Symmetrical Facial Symmetry on Retraction: Symmetrical Facial Movement: Controlled Against Resistance Opening: Normal Against Resistance Closing: Normal Pucker Lips: Normal Smile: Normal Lingual Movement: Normal, Symmetric Lingual Speed of Movement: Normal Lingual Movement Strgth Against Opposition: Normal Lingual Movement Characteristics: Normal Velopharyngeal Movement: Normal Laryngeal Movement: Labored,delay initiation Rate of Intake: WFL Bolus Size: WFL Labial Seal: WFL Oral Prep Time: WFL A-P Transit: WFL Pocketing: None Timing of Swallow: Delayed Coughing/Throat Clear: No ( 1/3 tsp applesauce) Recommendations - Speech Evaluation, Impression/Plan Impression: Hypokinetic Dysarthria with intermittent hypophonia sec to Parkinsons. Also, audible harsh inspiratory wheeze. Overtly tolerated 1/3 tsp of applesauce with delayed but brisk swallow. Liquids not given. Concern of aspiration as well as audible harsh inspiratory wheeze - Dysphagia Impressions/Plan Swallowing Skills: Impaired Dysphagia Impressions: Ongoing Evaluation, Suspect Aspiration *Silent aspiration: cannot be R/O at bedside Recommendations: Modified Barium Swallow - Recommendations Diet Consistency: NPO Medication Administration: Crushed with applesauce (finely crushed, per paint supervisor's guidelines.) Liquids: NPO
--- NOTE | 2019-09-29 21:49 | OP ---
DATE OF OPERATION: 09/28/2019 PREOPERATIVE DIAGNOSIS: Sigmoid volvulus. POSTOPERATIVE DIAGNOSIS: Sigmoid volvulus. PROCEDURE: Laparoscopic sigmoid colon resection. SURGEON: Avelino Jeffery MD MATHEMATICS IMPROVEMENT TEACHER: ROMAIN Jones COMPLICATIONS: None. BLEEDING: Minimal. Patient tolerated procedure well. INDICATIONS: This is a 79-year-old with Parkinson's and other medical comorbidities including diabetes, coronary artery disease, hypertension who was admitted with abdominal pain and distention. The diagnosis of sigmoid volvulus was confirmed by CT and also by colonoscopy with decompression of the volvulus, and she was admitted to the ICU for observation and monitoring and is now, after cardiac evaluation and clearance, taken to the operating room for sigmoid colon resection. DESCRIPTION OF PROCEDURE: In the operating room, she was placed in the supine position. After the induction of general anesthesia, she was prepped and draped in the usual sterile fashion. The procedure was begun with a periumbilical incision, and a standard Oralia approach was used to enter the peritoneal cavity. A 12-mm port was then introduced at this site and insufflation to a pressure of 15 mmHg was accomplished. A total of 3 other ports were then introduced under direct vision including a 12-mm trocar in the right lower quadrant. The procedure was begun with the patient in Trendelenburg position with mobilization of the sigmoid colon. There were adhesions from the cecum to the sigmoid colon, which were taken down sharply using laparoscopic natalya. There were colon colonic adhesions in the area of the volvulus of the sigmoid colon, which were also divided. This exposed the mesentery clearly. A resection was then planned just superior to the anterior peritoneal reflection leaving approximately about 10 cm of sigmoid to allow for an anastomosis. The mesenteric was at this point divided to allow placement of a stapler. An Endo CATIE purple stapler was fired across the divided colon. Mesentery division was performed with LigaSure staying close to the bowel to avoid having the need to take large vessels or to in any way compromise the ureter. Mobilization of the sigmoid mesentery was done without incident using LigaSure and then the colon was divided just at the beginning of the descending colon with another staple of the Endo CATIE. ICG green was used to then confirm adequate perfusion of both ends of the staple line and mesentery confirming good blood supply, and [id number] anastomosis then performed between 2 enterotomies using an Endo CAITE purple stapler and then the common general enterotomy was closed in 2 layers using 2-0 V-Loc suture in the running fashion, and mesentery defects were also closed with 2-0 V-Loc suture in a running fashion. Pelvis and left lower quadrant irrigated and suctioned. The specimen was placed in an EndoCatch bag. Final check for hemostasis was performed and then at this point the patient was desufflated. The ports were removed under direct vision. The specimen was then put out in the bag through extending the right lower quadrant port site, and a closure tray was then used to then close the wound in layers using 0 Vicryl stitch to close the posterior sheath followed by closure of the anterior fascia. Marcaine with Exparel was injected. The umbilical port was also closed with a 0 Vicryl suture. The skin was closed with 4-0 Monocryl. Dermabond was applied, and the patient was returned to the recovery room awake and alert in stable condition. She tolerated procedure well. Livan [id number]
[2019-09-29] MEDS: ERTAPENEM SODIUM 1 GM in SODIUM CHLORIDE 50 ML IVPB SCH (22:53)
[2019-09-29] MEDS: CHLORHEXIDINE GLUCONATE 4% CLEANSER FOR DECOLONIZATION TP SCH (22:54)
[2019-09-30] MEDS ORDERED: ALBUTEROL SO4 2.5/IPRATROPIUM 0.5 INH SOL 3 ML VIAL.NEB. NEB ONE (05:33)
[2019-09-30] MEDS ORDERED: ALBUTEROL SO4 HFA INHALER IH PRN (05:54)
[2019-09-30] MEDS: INSULIN SLIDING SCALE (NOVOLOG) 1 VIAL SQ SCH ×4 (06:23→23:53)
--- NOTE | 2019-09-30 08:03 | PN ---
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, Physician Chief Complaint: Remains week, awake, alert. Still difficult to take PO. Ms Rascon note appreciated. CXR yesterday showed possible aspiration PNA and wosened pleural effusions, possibly related to hypoalbuminemia. History of Present Illness: DM type 2, previously on Insulin. Atrophic kidney, history of cystitis, uti, hydronephrosis. Parkinson's disease. HTN Gait disorder. Falling. HLD, Multiple allergy. DNR/DNI Left hip fracture Syncope Compression fracture L1 Hydrocephalus on CT scan 2014 - Current Medication List Current Medications: Active Medications Acetaminophen (Ofirmev Injection -) 1,000 mg IVPB Q6H PRN PRN Reason: PAIN LEVEL 1-5 Last Admin: 09/28/19 17:30 Dose: 1,000 mg Documented by: Albuterol Sulfate (Ventolin Hfa Inhaler -) 2 puff IH Q4H PRN PRN Reason: SHORT OF BREATH/WHEEZING Albuterol/Ipratropium (Duoneb -) 1 amp NEB RQID [facility] Last Admin: 09/29/19 20:30 Dose: 1 amp Documented by: Chlorhexidine Gluconate (Hibiclens For Decolonization -) 1 applic TP [facility] Last Admin: 09/29/19 22:54 Dose: 1 applic Documented by: Heparin Sodium (Porcine) (Heparin -) 5,000 unit SQ BID [facility] Last Admin: 09/29/19 22:54 Dose: 5,000 unit Documented by: Ertapenem 1 gm/ Sodium (Chloride) 50 mls @ 100 mls/hr IVPB HS [facility] Last Admin: 09/29/19 22:53 Dose: 100 mls/hr Documented by: Lactated Ringer's (Lactated Ringers Solution) 1,000 ml in 1,000 mls @ 75 mls/hr IV ASDIR [facility] Last Admin: 09/29/19 16:47 Dose: 75 mls/hr Documented by: Insulin Aspart (Novolog Vial Sliding Scale -) 1 vial SQ [facility]; Protocol Last Admin: 09/30/19 06:23 Dose: Not Given Documented by: Lisinopril (Prinivil) 20 mg PO BID [facility] Last Admin: 09/29/19 22:54 Dose: 20 mg Documented by: Ondansetron HCl (Zofran Injection) 4 mg IVPUSH Q4H PRN PRN Reason: NAUSEA AND/OR VOMITING Last Admin: 09/29/19 16:48 Dose: 4 mg Documented by: Pantoprazole Sodium (Protonix Iv) 40 mg IVPUSH DAILY [facility] Last Admin: 09/29/19 10:32 Dose: 40 mg Documented by: - Objective Vital Signs: Vital Signs Temperature 97.9 F 09/29/19 20:00 Pulse Rate 85 09/30/19 04:00 Respiratory Rate 15 09/30/19 04:00 Blood Pressure 128/46 L 09/30/19 04:00 O2 Sat by Pulse Oximetry (%) 99 09/30/19 04:00 Constitutional: Yes: Calm, Mild Distress Eyes: Yes: Conjunctiva Clear, EOM Intact HENT: Yes: Atraumatic, Normocephalic Neck: Yes: Supple, Trachea Midline Cardiovascular: Yes: Regular Rate and Rhythm, S1, S2. No: Tachycardia Respiratory: Yes: Diminished (B/B), Dullness (B/B), On Nasal O2, Rhonchi (Few B/L) Gastrointestinal: Yes: Soft, Hypoactive Bowel Sounds. No: Abdomen, Obese ...Rectal Exam: Yes: Deferred Genitourinary: Yes: Daniels Present Breast(s): Yes: WNL Extremities: No: Amputation, Cold, Cyanosis Edema: No Integumentary: Yes: Incision (Healing). No: Body Piercing, Rash Neurological: Yes: Alert, Oriented, Dysarthria (Mild) ...Motor Strength: WNL Psychiatric: Yes: Alert, Oriented. No: Agitated, Suicidal Ideation Labs: CBC, BMP 09/29/19 05:15 09/29/19 05:15 INR, PTT INR 0.97 (0.83-1.09) 09/28/19 05:20 Problem List - Problems (1) Sigmoid volvulus Assessment/Plan: S/P Sigmoidectomy, s/p colonoscopy by Dr coronado on 09/25/19. Ertapenem IV NPO. Code(s): K56.2 - VOLVULUS (2) Diabetes 1.5, managed as type 1 Assessment/Plan: Follow BGM and cover with Novolog Code(s): E13.9 - OTHER SPECIFIED DIABETES MELLITUS WITHOUT COMPLICATIONS (3) ASHD (arteriosclerotic heart disease) Assessment/Plan: Old [place]. Cardiac enzymes. Cardiology consult, ECHO Troponin 0.2-0.2 Elevated BNP Code(s): I25.10 - ATHSCL HEART DISEASE OF [place] CORONARY ARTERY W/O ANG PCTRS (4) Hypokalemia Assessment/Plan: Replace K IV NPO. Code(s): E87.6 - HYPOKALEMIA (5) HTN (hypertension) Assessment/Plan: Lisinopril started by cardiology Code(s): I10 - ESSENTIAL (PRIMARY) HYPERTENSION Qualifiers: Hypertension type: essential hypertension Qualified Code(s): I10 - Essential (primary) hypertension (6) COPD with asthma Assessment/Plan: Codie nebs Code(s): J44.9 - CHRONIC OBSTRUCTIVE PULMONARY DISEASE, UNSPECIFIED (7) Aspiration pneumonia Assessment/Plan: NPO now. Barium swallow. TPN temporarilily discussed with team via CVP line Problems reviewed: Yes Code(s): J69.0 - PNEUMONITIS DUE TO INHALATION OF FOOD AND VOMIT Qualifiers: Aspiration pneumonia type: unspecified Laterality: bilateral
[2019-09-30] MEDS ORDERED: POTASSIUM CHLORIDE ORAL LIQUID 20 MEQ/15 ML PO ONE (08:20)
[2019-09-30] MEDS: ALBUTEROL SO4 2.5/IPRATROPIUM 0.5 INH SOL 3 ML VIAL.NEB. NEB SCH ×4 (09:00→19:52)
[2019-09-30] MEDS: LISINOPRIL 10 MG TABLET (FP) PO SCH ×2 (09:22→23:47)
[2019-09-30] MEDS: PANTOPRAZOLE SODIUM 40 MG VIAL IVPUSH SCH (09:22)
[2019-09-30] MEDS: HEPARIN NA (PORCINE) 5,000 UNITS/ML 1ML VIAL SQ SCH ×2 (09:22→23:47)
--- NOTE | 2019-09-30 09:36 | PN ---
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 (short form) - Note 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: Surgery POD #2 laparoscopic sigmoid colon resection. Patient seen and examined on AM rounds with Dr Morgan. There was concern for aspiration yesterday and speech pathologist recommended modified barrium swallow. Nursing reports no issues overnight. No respiratory issues overnight and patient remained stable. Patient denies any pain and states she is thirsty. Vital Signs Temp 97.9 F 09/29/19 20:00 Pulse 89 09/30/19 08:00 Resp 16 09/30/19 08:00 BP 144/56 L 09/30/19 08:00 Pulse Ox 98 09/30/19 08:00 Intake & Output 09/29/19 09/29/19 09/30/19 11:59 23:59 11:59 Intake Total 1050 1150 900 Output Total 700 100 Balance 1050 450 800 Weight 129 lb 4.8 oz Intake: IV 900 900 900 LACTATED RINGERS SOLUTION 900 900 900 1,000 ml In 1,000 ml @ 75 mls/hr IV ASDIR [facility] Rx #:[id number] IVPB 100 250 Oral 50 Output: Urine 700 100 Daniels 700 100 Other: Voiding Method Indwelling Catheter Indwelling Catheter Bowel Movement Yes: mucoid, brown/clear No # Bowel Movements 1 Weight Measurement Method Built in [facility] CBC, BMP 09/29/19 05:15 09/29/19 05:15 PE: Patient resting comfortably- rousable and cooperative. NAD Unlabored resp on 2L NC, no accessory muscle use ABD: Soft, supple, ND with no areas of acute tenderness. Incisions c/d/i with surrounding tissue intact and no tracking erythema, or evidence of collection or active d/c B/L LE compatments soft, supple and non-tender with + DP pulses. Chest X-Ray 09/29/19 Worsening infiltrates in both lungs with increasing pleural fluid suspicious for clinical findings of aspiration pneumonia. Problem List - Problems (1) Volvulus of descending colon Assessment/Plan: POD #1 laparoscopic sigmoid colon resection with suspected aspiration-patient remains stable. Abdomen benign. -Modified Barium Swallow today. -Diet recs per speech pathology appreciated -DVT prophylaxis -Q2 positioning, offload pressure sensitive areas -Daily abdominal x-rays -Close observation -encourage IS -surgery to follow Evaluation and plan discussed with Dr Jeffery Code(s): K56.2 - VOLVULUS
[2019-09-30 10:06] LABS: BASO % 0.4 % (0-2.0); EOS % 1.9 % (0-4.5); HEMATOCRIT 28.5 % (32.4-45.2); HEMOGLOBIN 9.5 GM/dL (10.7-15.3); MCHC 33.3 g/dl (32.0-36.0); MEAN CELL VOLUME 96.3 fl (80-96); NEUT % 82.7 % (42.8-82.8); PLATELET COUNT 331 K/MM3 (134-434); RBC 2.96 M/mm3 (3.60-5.2); RDW 14.9 % (11.6-15.6); WHITE BLOOD COUNT 8.8 K/mm3 (4.0-10.0)
[2019-09-30 10:38] LABS: ALBUMIN 1.8 g/dl (3.4-5.0); BILIRUBIN,TOTAL 0.4 mg/dL (0.2-1); BLOOD UREA NITROGEN 14.1 mg/dL (7-18); CALCIUM 8.8 mg/dL (8.5-10.1); CREATININE 0.8 mg/dL (0.55-1.3); POTASSIUM 3.4 mmol/L (3.5-5.1); TOT PROT 4.8 g/dl (6.4-8.2)
[2019-09-30] MEDS: LACTATED RINGERS SOLUTION 1,000 ML/1,000 ML INFUS.BAG IV SCH ×2 (11:16→16:41)
--- NOTE | 2019-09-30 12:28 | PN ---
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 Reassessed swallow with applesauce with good overt tolerance rec: mbs to r/o aspiration, and determine if po diet can be initiated with safety.
--- NOTE | 2019-09-30 12:34 | PN ---
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 (short form) - Note 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: PULMONARY s/p sigmoid resection. Awake but very weak. No fevers recorded. Vital Signs Period Temp Pulse Resp BP Sys/Grossman Pulse Ox Last 24 Hr 97.0 F-98.2 F 74-99 9-22 128-165/36-71 99-100 Gen: NAD but weak Heart: RRR Lung: decreased breath sounds at the bases Abd: soft, nontender, incisions clean Ext: no edema CBC, BMP 09/29/19 05:15 09/29/19 05:15 Active Medications Acetaminophen (Ofirmev Injection -) 1,000 mg IVPB Q6H PRN PRN Reason: PAIN LEVEL 1-5 Last Admin: 09/28/19 17:30 Dose: 1,000 mg Documented by: Chlorhexidine Gluconate (Hibiclens For Decolonization -) 1 applic TP [facility] Last Admin: 09/28/19 21:24 Dose: Not Given Documented by: Heparin Sodium (Porcine) (Heparin -) 5,000 unit SQ BID [facility] Last Admin: 09/29/19 10:31 Dose: 5,000 unit Documented by: Ertapenem 1 gm/ Sodium (Chloride) 50 mls @ 100 mls/hr IVPB HS [facility] Last Admin: 09/28/19 21:30 Dose: 100 mls/hr Documented by: Lactated Ringer's (Lactated Ringers Solution) 1,000 ml in 1,000 mls @ 75 mls/hr IV [facility] Last Admin: 09/28/19 15:44 Dose: 75 mls/hr Documented by: Insulin Aspart (Novolog Vial Sliding Scale -) 1 vial SQ [facility]; Protocol Last Admin: 09/29/19 06:13 Dose: Not Given Documented by: Lisinopril (Prinivil) 20 mg PO BID [facility] Last Admin: 09/28/19 21:25 Dose: 20 mg Documented by: Mupirocin (Bactroban Ointment (For Decolonization) -) 1 applic NS BID [facility] Stop: 09/29/19 21:59 Last Admin: 09/29/19 10:31 Dose: 1 applic Documented by: Ondansetron HCl (Zofran Injection) 4 mg IVPUSH Q4H PRN PRN Reason: NAUSEA AND/OR VOMITING Last Admin: 09/26/19 07:13 Dose: 4 mg Documented by: Pantoprazole Sodium (Protonix Iv) 40 mg IVPUSH DAILY [facility] Last Admin: 09/29/19 10:32 Dose: 40 mg Documented by: A/P SUBJECTIVE: Pt seen and examined in the ICU. No abdominal pain, nausea or vomiting. OBJECTIVE: Vital Signs Period Temp Pulse Resp BP Sys/Grossman Pulse Ox Last 24 Hr 97.6 F-98 F 85-103 10-18 125-144/42-64 98-100 Gen: NAD at rest Heart: RRR Lung: decreased breath sounds at the bases Abd: soft, nontender Ext: no edema CBC, BMP 09/30/19 09:47 09/30/19 07:54 Active Medications Acetaminophen (Ofirmev Injection -) 1,000 mg IVPB Q6H PRN PRN Reason: PAIN LEVEL 1-5 Last Admin: 09/28/19 17:30 Dose: 1,000 mg Documented by: Albuterol Sulfate (Ventolin Hfa Inhaler -) 2 puff IH Q4H PRN PRN Reason: SHORT OF BREATH/WHEEZING Albuterol/Ipratropium (Duoneb -) 1 amp NEB RQID [facility] Last Admin: 09/30/19 09:00 Dose: 1 amp Documented by: Chlorhexidine Gluconate (Hibiclens For Decolonization -) 1 applic TP [facility] Last Admin: 09/29/19 22:54 Dose: 1 applic Documented by: Heparin Sodium (Porcine) (Heparin -) 5,000 unit SQ BID [facility] Last Admin: 09/30/19 09:22 Dose: 5,000 unit Documented by: Ertapenem 1 gm/ Sodium (Chloride) 50 mls @ 100 mls/hr IVPB HS [facility] Last Admin: 09/29/19 22:53 Dose: 100 mls/hr Documented by: Lactated Ringer's (Lactated Ringers Solution) 1,000 ml in 1,000 mls @ 75 mls/hr IV [facility] Last Admin: 09/30/19 11:16 Dose: 75 mls/hr Documented by: Insulin Aspart (Novolog Vial Sliding Scale -) 1 vial SQ [facility]; Protocol Last Admin: 09/30/19 11:15 Dose: 2 units Documented by: Lisinopril (Prinivil) 20 mg PO BID [facility] Last Admin: 07/22/20 09:22 Dose: 20 mg Documented by: Ondansetron HCl (Zofran Injection) 4 mg IVPUSH Q4H PRN PRN Reason: NAUSEA AND/OR VOMITING Last Admin: 09/29/19 16:48 Dose: 4 mg Documented by: Pantoprazole Sodium (Protonix Iv) 40 mg IVPUSH DAILY [facility] Last Admin: 09/30/19 09:22 Dose: 40 mg Documented by: ASSESSMENT AND PLAN: Sigmoid Volvulus s/p sigmoid resection POD #2 Lactic Acidosis +Troponins likely Demand Ischemia DM Parkinsons Anemia - continue antibiotics - replete lytes - O2 to keep SpO2 >90% - PO per surgery - NGT/enteral feeds if unable to take PO - aspiration precautions - DVT prophylaxis - can monitor on floor
--- NOTE | 2019-09-30 12:59 | PN ---
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 (short form) - Note 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: Chief Complaint: volvulus/abd pain History of Present Illness: no cp, sob, palp, swelling Current Medications Generic Name Dose Route Start Last Admin Trade Name Stacie PRN Reason Stop Dose Admin Acetaminophen 1,000 mg 09/28/19 16:29 09/28/19 17:30 Ofirmev Injection - IVPB 1,000 mg Q6H PRN Administration PAIN LEVEL 1-5 Albuterol Sulfate 2 puff 09/30/19 05:54 Ventolin Hfa Inhaler - IH Q4H PRN SHORT OF BREATH/WHEEZING Albuterol/Ipratropium 1 amp 09/29/19 16:00 09/30/19 09:00 Duoneb - NEB 1 amp RQID [facility] Administration Chlorhexidine Gluconate 1 applic 09/24/19 22:00 09/29/19 22:54 Hibiclens For Decolonization - TP 1 applic HS [facility] Administration Heparin Sodium (Porcine) 5,000 unit 09/28/19 22:00 09/30/19 09:22 Heparin - SQ 5,000 unit BID [facility] Administration Ertapenem 1 gm/ Sodium 50 mls @ 100 mls/hr 09/24/19 22:00 09/29/19 22:53 Chloride IVPB 100 mls/hr HS [facility] Administration Lactated Ringer's 1,000 ml in 1,000 mls @ 75 mls/hr 09/28/19 15:00 09/30/19 11:16 Lactated Ringers Solution IV 75 mls/hr ASDIR [facility] Administration Insulin Aspart 1 vial 09/24/19 16:30 09/30/19 11:15 Novolog Vial Sliding Scale - SQ 2 units ACHS [facility] Administration Protocol Lisinopril 20 mg 09/27/19 22:00 09/30/19 09:22 Prinivil PO 20 mg BID [facility] Administration Ondansetron HCl 4 mg 09/24/19 14:32 09/29/19 16:48 Zofran Injection IVPUSH 4 mg Q4H PRN Administration NAUSEA AND/OR VOMITING Pantoprazole Sodium 40 mg 09/25/19 10:00 09/30/19 09:22 Protonix Iv IVPUSH 40 mg DAILY [facility] Administration Vital Signs Period Temp Pulse Resp BP Sys/Grossman Pulse Ox Last 24 Hr 97.6 F-98 F 85-103 10-18 125-144/42-64 98-100 Constitutional: Yes: Well Nourished, No Distress, Calm Cardiovascular: Yes: Regular Rate and Rhythm. No: Murmur Respiratory: Yes: Regular. No: Accessory Muscle Use Extremities: No: Cold Edema: No Neurological: Yes: Alert, Oriented Psychiatric: No: Agitated no jaundice diaphoresis Assessment/Plan ecg: sr nl intervals no ischemic changes cxr: no sig chf Echo 09/27: nl LV, RV. valves WNL tele: sinus, sinus tach a/p: 79 f hx htn, hld, dm, sent from ut for abd pain. sigmoid volvulus, preop CV eval: -s/p lap sigmoid resection - manage per surgery arrhythmia: -slow, irregular rhythm at night with poor baseline: ? sinus arrhythmia vs slow PAFib -will not start AC in absence of definitive AF on tele (note frequent APCs at times as well, not to be confused with AF) -cont tele monitoring (remains benign) htn: -cont current meds positive trop: -borderline trop elevation with flat trend and nl ck, not c/w acs. ecg w/o ischemic changes. -normal LV fxn
--- NOTE | 2019-09-30 17:34 | PATH ---
Surgical Pathology Report Patient Name: LATONIA DUVAL [facility]. Rec. 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 Specimen(s) Received SIGMOID COLON Clinical History Volvulus of sigmoid colon Final Diagnosis SIGMOID COLON, LAPAROSCOPIC SIGMOID RESECTION: SEGMENT OF COLON WITH VASCULAR CONGESTION AND MUCOSAL EDEMA. SURGICAL MARGINS ARE VIABLE. Electronically Signed Diana Weiss M.D. Gross Description Received in formalin labeled "sigmoid colon," is a 24 cm in length portion of colon with 2 stapled mucosal margins and moderate attached fat. The serosa is ace-pink and smooth. The mucosa is ace-pink and edematous. No mucosal masses are identified. Gold Buyer sections are submitted in 5 cassettes as follows: 1-2-stapled mucosal margins of resection; 7-0-[id number] sections of colon. DL/09/29/2019 saudi/09/29/2019
[2019-09-30] MEDS ORDERED: PT OWN MED DRAWER 7, Y5N ONE (23:24)
[2019-09-30] MEDS: ERTAPENEM SODIUM 1 GM in SODIUM CHLORIDE 50 ML IVPB SCH (23:46)
[2019-09-30] MEDS: CHLORHEXIDINE GLUCONATE 4% CLEANSER FOR DECOLONIZATION TP SCH (23:47)
[2019-10-01] MEDS: INSULIN SLIDING SCALE (NOVOLOG) 1 VIAL SQ SCH ×4 (06:18→22:21)
[2019-10-01] MEDS: LACTATED RINGERS SOLUTION 1,000 ML/1,000 ML INFUS.BAG IV SCH ×2 (06:22→15:27)
[2019-10-01 06:23] LABS: BASO % 0.5 % (0-2.0); EOS % 3.9 % (0-4.5); HEMATOCRIT 29.1 % (32.4-45.2); HEMOGLOBIN 9.5 GM/dL (10.7-15.3); LYMPH % 6.4 % (8-40); MCHC 32.6 g/dl (32.0-36.0); MEAN CELL VOLUME 95.2 fl (80-96); MEAN PLT VOLUME 8.9 fl (7.5-11.1); MONO % 12.6 % (3.8-10.2); NEUT % 76.6 % (42.8-82.8); PLATELET COUNT 328 K/MM3 (134-434); RBC 3.05 M/mm3 (3.60-5.2); RDW 14.8 % (11.6-15.6); WHITE BLOOD COUNT 7.4 K/mm3 (4.0-10.0)
[2019-10-01 06:44] LABS: ALBUMIN 1.7 g/dl (3.4-5.0); BILIRUBIN,TOTAL 0.2 mg/dL (0.2-1); BLOOD UREA NITROGEN 13.2 mg/dL (7-18); CALCIUM 8.3 mg/dL (8.5-10.1); CREATININE 0.8 mg/dL (0.55-1.3); POTASSIUM 3.3 mmol/L (3.5-5.1); TOT PROT 4.6 g/dl (6.4-8.2)
--- NOTE | 2019-10-01 07:45 | PN ---
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, Physician Chief Complaint: Day # 2 post sigmoidectomy in the ICU. Ms Tarah follow up appreciated. Thickened liquids and consistency diet recommended, More awake . alert. History of Present Illness: DM type 2, previously on Insulin. Atrophic kidney, history of cystitis, uti, hydronephrosis. Parkinson's disease. HTN Gait disorder. Falling. HLD, Multiple allergy. DNR/DNI Left hip fracture Syncope Compression fracture L1 Hydrocephalus on CT scan 2014 - Current Medication List Current Medications: Active Medications Acetaminophen (Ofirmev Injection -) 1,000 mg IVPB Q6H PRN PRN Reason: PAIN LEVEL 1-5 Last Admin: 09/28/19 17:30 Dose: 1,000 mg Documented by: Albuterol Sulfate (Ventolin Hfa Inhaler -) 2 puff IH Q4H PRN PRN Reason: SHORT OF BREATH/WHEEZING Albuterol/Ipratropium (Duoneb -) 1 amp NEB RQID [facility] Last Admin: 09/30/19 19:52 Dose: 1 amp Documented by: Chlorhexidine Gluconate (Hibiclens For Decolonization -) 1 applic TP [facility] Last Admin: 09/30/19 23:47 Dose: 1 applic Documented by: Heparin Sodium (Porcine) (Heparin -) 5,000 unit SQ BID [facility] Last Admin: 09/30/19 23:47 Dose: 5,000 unit Documented by: Ertapenem 1 gm/ Sodium (Chloride) 50 mls @ 100 mls/hr IVPB HS [facility] Last Admin: 09/30/19 23:46 Dose: 100 mls/hr Documented by: Lactated Ringer's (Lactated Ringers Solution) 1,000 ml in 1,000 mls @ 75 mls/hr IV ASDIR [facility] Last Admin: 10/01/19 06:22 Dose: 75 mls/hr Documented by: Insulin Aspart (Novolog Vial Sliding Scale -) 1 vial SQ [facility]; Protocol Last Admin: 10/01/19 06:18 Dose: Not Given Documented by: Lisinopril (Prinivil) 20 mg PO BID [facility] Last Admin: 09/30/19 23:47 Dose: 20 mg Documented by: Ondansetron HCl (Zofran Injection) 4 mg IVPUSH Q4H PRN PRN Reason: NAUSEA AND/OR VOMITING Last Admin: 07/21/20 16:48 Dose: 4 mg Documented by: Pantoprazole Sodium (Protonix Iv) 40 mg IVPUSH DAILY ANABEL Last Admin: 09/30/19 09:22 Dose: 40 mg Documented by: Potassium Chloride (K-Dur -) 40 meq PO ONCE ONE Stop: 10/01/19 07:36 - Objective Vital Signs: Vital Signs Temperature 97.4 F L 10/01/19 05:51 Pulse Rate 91 H 10/01/19 05:51 Respiratory Rate 16 10/01/19 05:51 Blood Pressure 140/59 L 10/01/19 05:51 O2 Sat by Pulse Oximetry (%) 97 10/01/19 05:51 Constitutional: Yes: Anxious, Moderate Distress Eyes: Yes: Conjunctiva Clear, EOM Intact HENT: Yes: Atraumatic, Normocephalic Neck: Yes: Supple, Trachea Midline Cardiovascular: Yes: Regular Rate and Rhythm, S1, S2 Respiratory: Yes: On Nasal O2, Rales, Rhonchi Gastrointestinal: Yes: Soft, Hypoactive Bowel Sounds (Active BS). No: Distention ...Rectal Exam: Yes: Deferred Genitourinary: Yes: Daniels Present. No: Anuria Breast(s): Yes: WNL Musculoskeletal: No: Joint Stiffness, Joint Swelling, Muscle Pain Extremities: Yes: Internal Rotation. No: Calf Tenderness, Cold, Cyanosis Neurological: Yes: Alert, Oriented, Tremors, Weakness. No: Unresponsive Psychiatric: Yes: Alert, Oriented. No: Agitated, Suicidal Ideation Labs: CBC, BMP 10/01/19 05:35 10/01/19 05:35 INR, PTT Laboratory Results - last 24 hr 09/30/19 09/30/19 09/30/19 07:54 09:47 11:04 WBC 8.8 RBC 2.96 L Hgb 9.5 L Hct 28.5 L MCV 96.3 H MCH 32.0 MCHC 33.3 RDW 14.9 Plt Count 331 MPV 9.0 Absolute Neuts (auto) 7.3 Neutrophils % 82.7 Lymphocytes % 6.0 L D Monocytes % 9.0 D Eosinophils % 1.9 Basophils % 0.4 Nucleated RBC % 0 Sodium 141 Potassium 3.4 L Chloride 103 Carbon Dioxide 29 Anion Gap 10 BUN 14.1 Creatinine 0.8 Est GFR (CKD-EPI)AfAm 82.42 Est GFR (CKD-EPI)NonAf 71.11 POC Glucometer 252 Random Glucose 259 H Calcium 8.8 Magnesium 2.0 Total Bilirubin 0.4 AST 53 H ALT 19 Alkaline Phosphatase 120 H Total Protein 4.8 L Albumin 1.8 L 09/30/19 09/30/19 10/01/19 16:39 23:52 05:35 WBC 7.4 RBC 3.05 L Hgb 9.5 L Hct 29.1 L MCV 95.2 MCH 31.0 MCHC 32.6 RDW 14.8 Plt Count 328 MPV 8.9 Absolute Neuts (auto) 5.7 Neutrophils % 76.6 Lymphocytes % 6.4 L Monocytes % 12.6 H Eosinophils % 3.9 D Basophils % 0.5 Nucleated RBC % 0 Sodium Potassium Chloride Carbon Dioxide Anion Gap BUN Creatinine Est GFR (CKD-EPI)AfAm Est GFR (CKD-EPI)NonAf POC Glucometer 322 202 Random Glucose Calcium Magnesium Total Bilirubin AST ALT Alkaline Phosphatase Total Protein Albumin 10/01/19 10/01/19 05:35 05:38 WBC RBC Hgb Hct MCV MCH MCHC RDW Plt Count MPV Absolute Neuts (auto) Neutrophils % Lymphocytes % Monocytes % Eosinophils % Basophils % Nucleated RBC % Sodium 143 Potassium 3.3 L Chloride 104 Carbon Dioxide 32 Anion Gap 7 L BUN 13.2 Creatinine 0.8 Est GFR (CKD-EPI)AfAm 82.42 Est GFR (CKD-EPI)NonAf 71.11 POC Glucometer 145 Random Glucose 177 H Calcium 8.3 L Magnesium Total Bilirubin 0.2 AST 51 H ALT 19 Alkaline Phosphatase 117 Total Protein 4.6 L Albumin 1.7 L INR 0.97 (0.83-1.09) 09/28/19 05:20 Current Active Problems Problem Status Onset ASHD (arteriosclerotic heart disease) Acute Allergy to multiple antibiotics Acute Aspiration pneumonia Acute COPD with asthma Acute Diabetes 1.5, managed as type 1 Acute HTN (hypertension) Acute Hypokalemia Acute Sigmoid volvulus Acute Volvulus of descending colon Acute - ....Imaging Chest X-ray: Report Reviewed (B/L effusions, atelectasis) Problem List - Problems (1) Sigmoid volvulus Assessment/Plan: S/P Sigmoidectomy, s/p colonoscopy by Dr coronado on 09/25/19. Ertapenem IV Thickened fluids, nectar diet Code(s): K56.2 - VOLVULUS (2) Diabetes 1.5, managed as type 1 Assessment/Plan: Follow BGM and cover with Novolog Code(s): E13.9 - OTHER SPECIFIED DIABETES MELLITUS WITHOUT COMPLICATIONS (3) ASHD (arteriosclerotic heart disease) Assessment/Plan: Old [place]. Cardiac enzymes. Cardiology consult, ECHO Troponin 0.2-0.2 Elevated BNP Code(s): I25.10 - ATHSCL HEART DISEASE OF [place] CORONARY ARTERY W/O ANG PCTRS (4) Hypokalemia Assessment/Plan: Replace K PO Diet as per speech pathology.. Code(s): E87.6 - HYPOKALEMIA (5) HTN (hypertension) Assessment/Plan: Lisinopril started by cardiology Code(s): I10 - ESSENTIAL (PRIMARY) HYPERTENSION Qualifiers: Hypertension type: essential hypertension Qualified Code(s): I10 - Essential (primary) hypertension (6) COPD with asthma Assessment/Plan: Codie nebs Code(s): J44.9 - CHRONIC OBSTRUCTIVE PULMONARY DISEASE, UNSPECIFIED
[2019-10-01] MEDS: ALBUTEROL SO4 2.5/IPRATROPIUM 0.5 INH SOL 3 ML VIAL.NEB. NEB SCH ×3 (07:50→20:28)
[2019-10-01] MEDS ORDERED: POTASSIUM CHLORIDE ORAL LIQUID 20 MEQ/15 ML PO ONE (07:55)
[2019-10-01] MEDS ORDERED: POTASSIUM CHLORIDE TABS 20 MEQ TABLET.ER (FP) PO ONE (08:00)
[2019-10-01] MEDS: KCL 10 MEQ IVPB 10 MEQ/100 ML INFUS.BAG IVPB SCH ×3 (08:30→10:48)
[2019-10-01] MEDS: HEPARIN NA (PORCINE) 5,000 UNITS/ML 1ML VIAL SQ SCH ×2 (10:34→22:21)
[2019-10-01] MEDS: LISINOPRIL 10 MG TABLET (FP) PO SCH ×2 (10:34→22:21)
[2019-10-01] MEDS: PANTOPRAZOLE SODIUM 40 MG VIAL IVPUSH SCH (10:34)
--- NOTE | 2019-10-01 10:52 | PN ---
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 Conservative diet of Dys ground /nectar rec. Pt requests laura merna, likely ok. Pt reported poor appetite over month before admission. She needed a lot of coaxing to try muffin, cracker, cookie during MBS. Pt reported "vomiting" after breakfast. From esophagus vs stomach? Monitor tolerance and for congestion. Suggest-Feed slowly, fully upright, slowly to allow esophagus to empty.Trial sips of thin liquid. Pt was on Glucerna at [place]. Maybe she would accept it, mixed with laura merna.
--- NOTE | 2019-10-01 12:03 | PN ---
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 (short form) - Note 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: Chief Complaint: volvulus/abd pain History of Present Illness: resting comfortably. denies cp, sob, palp, swelling Current Medications Generic Name Dose Route Start Last Admin Trade Name Freq PRN Reason Stop Dose Admin Acetaminophen 1,000 mg 09/28/19 16:29 09/28/19 17:30 Ofirmev Injection - IVPB 1,000 mg Q6H PRN Administration PAIN LEVEL 1-5 Albuterol Sulfate 2 puff 09/30/19 05:54 Ventolin Hfa Inhaler - IH Q4H PRN SHORT OF BREATH/WHEEZING Albuterol/Ipratropium 1 amp 09/29/19 16:00 10/01/19 07:50 Duoneb - NEB 1 amp RQID ANABEL Administration Chlorhexidine Gluconate 1 applic 09/24/19 22:00 09/30/19 23:47 Hibiclens For Decolonization - TP 1 applic HS ANABEL Administration Heparin Sodium (Porcine) 5,000 unit 09/28/19 22:00 10/01/19 10:34 Heparin - SQ 5,000 unit BID ANABEL Administration Ertapenem 1 gm/ Sodium 50 mls @ 100 mls/hr 09/24/19 22:00 09/30/19 23:46 Chloride IVPB 100 mls/hr HS ANABEL Administration Lactated Ringer's 1,000 ml in 1,000 mls @ 75 mls/hr 09/28/19 15:00 10/01/19 06:22 Lactated Ringers Solution IV 75 mls/hr ASDIR ANABEL Administration Insulin Aspart 1 vial 09/24/19 16:30 10/01/19 10:48 Novolog Vial Sliding Scale - SQ 2 units ACHS ANABEL Administration Protocol Lisinopril 20 mg 09/27/19 22:00 10/01/19 10:34 Prinivil PO 20 mg BID ANABEL Administration Ondansetron HCl 4 mg 09/24/19 14:32 09/29/19 16:48 Zofran Injection IVPUSH 4 mg Q4H PRN Administration NAUSEA AND/OR VOMITING Pantoprazole Sodium 40 mg 09/25/19 10:00 10/01/19 10:34 Protonix Iv IVPUSH 40 mg DAILY ANABEL Administration Vital Signs Period Temp Pulse Resp BP Sys/Grossman Pulse Ox Last 24 Hr 97.4 F-98.2 F 85-102 10-16 115-140/45-63 97-100 Constitutional: Yes: Well Nourished, No Distress, Calm Cardiovascular: Yes: Regular Rate and Rhythm. No: Murmur Respiratory: Yes: Regular. No: Accessory Muscle Use Extremities: No: Cold Edema: No Neurological: Yes: Alert, Oriented Psychiatric: No: Agitated no jaundice diaphoresis Labs: CBC, BMP 10/01/19 05:35 10/01/19 05:35 Assessment/Plan ecg: sr nl intervals no ischemic changes cxr: no sig chf Echo 09/27: nl LV, RV. valves WNL tele: sr a/p: 79 f hx htn, hld, dm, sent from [facility] for abd pain. sigmoid volvulus, preop CV eval: -s/p lap sigmoid resection - manage per surgery arrhythmia: -slow, irregular rhythm at night with poor baseline: ? sinus arrhythmia vs slow PAFib -will not start AC in absence of definitive AF on tele (note frequent APCs at times as well, not to be confused with AF) -cont tele monitoring (remains benign) htn: -cont current meds positive trop: -borderline trop elevation with flat trend and nl ck, not c/w acs. ecg w/o ischemic changes. -normal LV fxn
--- NOTE | 2019-10-01 12:31 | PN ---
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 (short form) - Note 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: PULMONARY Vomited after eating this AM. No fevers recorded. Vital Signs Period Temp Pulse Resp BP Sys/Grossman Pulse Ox Last 24 Hr 97.4 F-98.2 F 85-102 10-16 115-140/45-63 97-100 Intake & Output 09/28/19 09/29/19 09/30/19 10/01/19 23:59 23:59 23:59 23:59 Intake Total 500 2200 2080 1000 Output Total 600 700 650 200 Balance -100 1500 1430 800 Weight 58.649 kg 58.695 kg Gen: NAD but weak Heart: RRR Lung: decreased breath sounds at the bases Abd: soft, nontender, incisions clean Ext: no edema CBC, BMP 10/01/19 05:35 10/01/19 05:35 Active Medications Acetaminophen (Ofirmev Injection -) 1,000 mg IVPB Q6H PRN PRN Reason: PAIN LEVEL 1-5 Last Admin: 09/28/19 17:30 Dose: 1,000 mg Documented by: Albuterol Sulfate (Ventolin Hfa Inhaler -) 2 puff IH Q4H PRN PRN Reason: SHORT OF BREATH/WHEEZING Albuterol/Ipratropium (Duoneb -) 1 amp NEB RQID [facility] Last Admin: 10/01/19 07:50 Dose: 1 amp Documented by: Chlorhexidine Gluconate (Hibiclens For Decolonization -) 1 applic TP HS [facility] Last Admin: 09/30/19 23:47 Dose: 1 applic Documented by: Heparin Sodium (Porcine) (Heparin -) 5,000 unit SQ BID [facility] Last Admin: 10/01/19 10:34 Dose: 5,000 unit Documented by: Ertapenem 1 gm/ Sodium (Chloride) 50 mls @ 100 mls/hr IVPB HS [facility] Last Admin: 09/30/19 23:46 Dose: 100 mls/hr Documented by: Lactated Ringer's (Lactated Ringers Solution) 1,000 ml in 1,000 mls @ 75 mls/hr IV ASDIR [facility] Last Admin: 10/01/19 06:22 Dose: 75 mls/hr Documented by: Insulin Aspart (Novolog Vial Sliding Scale -) 1 vial SQ ACHS [facility]; Protocol Last Admin: 10/01/19 10:48 Dose: 2 units Documented by: Lisinopril (Prinivil) 20 mg PO BID [facility] Last Admin: 10/01/19 10:34 Dose: 20 mg Documented by: Ondansetron HCl (Zofran Injection) 4 mg IVPUSH Q4H PRN PRN Reason: NAUSEA AND/OR VOMITING Last Admin: 09/29/19 16:48 Dose: 4 mg Documented by: Pantoprazole Sodium (Protonix Iv) 40 mg IVPUSH DAILY [facility] Last Admin: 10/01/19 10:34 Dose: 40 mg Documented by: ASSESSMENT AND PLAN: Sigmoid Volvulus s/p sigmoid resection POD #3 Lactic Acidosis +Troponins likely Demand Ischemia DM Parkinsons Anemia - antibiotics per ID - replete lytes - O2 to keep SpO2 >90% - PO as tolerated - aspiration precautions - DVT prophylaxis - can monitor on floor
[2019-10-01] MEDS: AMINO ACIDS 4.25%/D5W 1,000 ML IV SCH (15:35)
--- NOTE | 2019-10-01 15:44 | PN ---
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 (short form) - Note 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: much more alert today Vital Signs Period Temp Pulse Resp BP Sys/Grossman Pulse Ox Last 24 Hr 97.4 F-99.0 F 85-102 10-16 115-150/45-63 97-100 cor-rrr lungs decreased bs at bases abd soft,nt ext trace edema CBC, BMP 10/01/19 05:35 10/01/19 05:35 Microbiology 09/24/19 18:04 Blood - Peripheral Venous Blood Culture - Final NO GROWTH AFTER 5 DAYS INCUBATION 09/24/19 17:34 Blood - Peripheral Venous Blood Culture - Final NO GROWTH AFTER 5 DAYS INCUBATION imp/reccd possible aspiration pneumonia Sigmoid volvulus-s/p surgery today Multiple antibioitic allergies DNR/DNR d/c ertapenem encourage OOB and incentive spirometry Problem List - Problems (1) Sigmoid volvulus Code(s): K56.2 - VOLVULUS (2) Allergy to multiple antibiotics Code(s): Z88.1 - ALLERGY STATUS TO OTHER ANTIBIOTIC AGENTS STATUS
[2019-10-01] MEDS: AMINO ACIDS/PROTEIN HYDROLYS 30 ML LIQUID.PKT PO SCH (18:34)
[2019-10-01] MEDS ORDERED: ACETAMINOPHEN 1000 MG/100 ML VIAL (NON FORMULARY) IVPB PRN (21:45)
[2019-10-01] MEDS ORDERED: ONDANSETRON 4 MG/2 ML VIAL IVPUSH PRN (21:45)
--- NOTE | 2019-10-02 06:12 | PN ---
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, Physician Chief Complaint: no cp/sob/dizziness TELE: ST History of Present Illness: HTN DM Volvulus Slow AF? - Current Medication List Current Medications: Active Medications Acetaminophen (Ofirmev Injection -) 1,000 mg IVPB Q6H PRN PRN Reason: PAIN LEVEL 1-5 Stop: 10/02/19 21:44 Albuterol Sulfate (Ventolin Hfa Inhaler -) 2 puff IH Q4H PRN PRN Reason: SHORT OF BREATH/WHEEZING Albuterol/Ipratropium (Duoneb -) 1 amp NEB RQID [facility] Amino Acids (Prosource No Carb Liquid Pkt) 30 ml PO BID@0800,1730 [facility] Last Admin: 10/01/19 18:34 Dose: Not Given Documented by: Heparin Sodium (Porcine) (Heparin -) 5,000 unit SQ BID [facility] Last Admin: 10/01/19 22:21 Dose: 5,000 unit Documented by: Amino Acids (Clinimix -) 1,000 mls @ 42 mls/hr IV Q24H [facility] Last Admin: 10/01/19 15:35 Dose: 42 mls/hr Documented by: Insulin Aspart (Novolog Vial Sliding Scale -) 1 vial SQ ACHS [facility]; Protocol Last Admin: 10/01/19 22:21 Dose: 2 unit Documented by: Lisinopril (Prinivil) 20 mg PO BID [facility] Last Admin: 10/01/19 22:21 Dose: 20 mg Documented by: Ondansetron HCl (Zofran Injection) 4 mg IVPUSH Q4H PRN PRN Reason: NAUSEA AND/OR VOMITING Pantoprazole Sodium (Protonix Iv) 40 mg IVPUSH DAILY [facility] - Objective Vital Signs: Vital Signs Temperature 98.2 F 10/02/19 02:00 Pulse Rate 92 H 10/02/19 02:00 Respiratory Rate 14 10/02/19 02:00 Blood Pressure 115/57 L 10/02/19 02:00 O2 Sat by Pulse Oximetry (%) 97 10/02/19 02:00 Constitutional: Yes: No Distress, Calm Eyes: Yes: Conjunctiva Clear Cardiovascular: Yes: Regular Rate and Rhythm Respiratory: Yes: CTA Bilaterally Gastrointestinal: Yes: Soft (nt) Edema: No (venodynes) Neurological: Yes: Alert, Oriented ...Motor Strength: WNL Labs: CBC, BMP 10/01/19 05:35 10/01/19 05:35 INR, PTT INR 0.97 (0.83-1.09) 09/28/19 05:20 Laboratory Tests 09/24/19 10/02/19 10/02/19 12:17 06:15 06:15 WBC 8.8 Hgb 9.5 L Plt Count 351 Sodium 138 Potassium 3.7 Creatinine 0.6 COVID-19 (MEIR) Not detected - ....Imaging EKG: Image Reviewed Assessment/Plan Assessment/Plan Echo 09/27: nl LV, RV. valves WNL a/p: 79 f hx htn, hld, dm, [place] ab[place]. Sigmoid volvulus, preop CV eval: -s/p lap sigmoid resection - manage per surgery Arrhythmia: -slow, irregular rhythm at night with poor baseline: ? sinus arrhythmia vs slow PAFib -will not start AC in absence of definitive AF on tele (note frequent APCs at times as well, not to be confused with AF) -cont tele monitoring (remains benign) HTN: -cont current meds positive trop: -borderline trop elevation with flat trend and nl ck, not c/w acs. ecg w/o ischemic changes. -normal LV fxn
[2019-10-02] MEDS: INSULIN SLIDING SCALE (NOVOLOG) 1 VIAL SQ SCH ×4 (06:36→22:09)
[2019-10-02] MEDS: ALBUTEROL SO4 2.5/IPRATROPIUM 0.5 INH SOL 3 ML VIAL.NEB. NEB SCH ×4 (07:18→21:00)
[2019-10-02 07:26] LABS: BASO % 0.2 % (0-2.0); EOS % 5.1 % (0-4.5); HEMATOCRIT 29.1 % (32.4-45.2); HEMOGLOBIN 9.5 GM/dL (10.7-15.3); LYMPH % 6.3 % (8-40); MCH 31.1 pg (25.7-33.7); MCHC 32.6 g/dl (32.0-36.0); MEAN CELL VOLUME 95.5 fl (80-96); MEAN PLT VOLUME 9.2 fl (7.5-11.1); MONO % 8.4 % (3.8-10.2); PLATELET COUNT 351 K/MM3 (134-434); RBC 3.04 M/mm3 (3.60-5.2); RDW 14.7 % (11.6-15.6); WHITE BLOOD COUNT 8.8 K/mm3 (4.0-10.0)
[2019-10-02 07:44] LABS: ALBUMIN 1.7 g/dl (3.4-5.0); BILIRUBIN,TOTAL 0.4 mg/dL (0.2-1); BLOOD UREA NITROGEN 15.3 mg/dL (7-18); CALCIUM 8.4 mg/dL (8.5-10.1); CREATININE 0.6 mg/dL (0.55-1.3); POTASSIUM 3.7 mmol/L (3.5-5.1); TOT PROT 4.7 g/dl (6.4-8.2)
--- NOTE | 2019-10-02 08:49 | PN ---
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, Physician Chief Complaint: Continues to have poor PO intake, occasionally vomiting. Spoke to Ms Valdez yesterday. Poor nutritional status discussed with the patient. All options mentioned and the patient agrees to have NGT placed TEMPORARILY. Spoke to Dr Terry who described possibly fluid collection around GE junction. Repeat CT abdomen/pelvis suggested. History of Present Illness: DM type 2, previously on Insulin. Atrophic kidney, history of cystitis, uti, hydronephrosis. Parkinson's disease. HTN Gait disorder. Falling. HLD, Multiple allergy. DNR/DNI Left hip fracture Syncope Compression fracture L1 Hydrocephalus on CT scan 2014 - Current Medication List Current Medications: Active Medications Acetaminophen (Ofirmev Injection -) 1,000 mg IVPB Q6H PRN PRN Reason: PAIN LEVEL 1-5 Stop: 10/02/19 21:44 Albuterol Sulfate (Ventolin Hfa Inhaler -) 2 puff IH Q4H PRN PRN Reason: SHORT OF BREATH/WHEEZING Albuterol/Ipratropium (Duoneb -) 1 amp NEB RQID [facility] Last Admin: 10/02/19 07:18 Dose: 1 amp Documented by: Amino Acids (Prosource No Carb Liquid Pkt) 30 ml PO BID@0800,1730 [facility] Last Admin: 10/01/19 18:34 Dose: Not Given Documented by: Heparin Sodium (Porcine) (Heparin -) 5,000 unit SQ BID [facility] Last Admin: 10/01/19 22:21 Dose: 5,000 unit Documented by: Amino Acids (Clinimix -) 1,000 mls @ 42 mls/hr IV Q24H [facility] Last Admin: 10/01/19 15:35 Dose: 42 mls/hr Documented by: Insulin Aspart (Novolog Vial Sliding Scale -) 1 vial SQ ACHS [facility]; Protocol Last Admin: 10/02/19 06:36 Dose: 2 unit Documented by: Lisinopril (Prinivil) 20 mg PO BID [facility] Last Admin: 10/01/19 22:21 Dose: 20 mg Documented by: Ondansetron HCl (Zofran Injection) 4 mg IVPUSH Q4H PRN PRN Reason: NAUSEA AND/OR VOMITING Pantoprazole Sodium (Protonix Iv) 40 mg IVPUSH DAILY [facility] - Objective Vital Signs: Vital Signs Temperature 97.8 F 10/02/19 06:00 Pulse Rate 92 H 10/02/19 06:00 Respiratory Rate 16 10/02/19 06:00 Blood Pressure 149/65 10/02/19 06:00 O2 Sat by Pulse Oximetry (%) 91 L 10/02/19 06:00 Constitutional: Yes: Moderate Distress, Pallor, Thin Eyes: Yes: Conjunctiva Clear, EOM Intact HENT: Yes: Atraumatic, Normocephalic Neck: Yes: Supple, Trachea Midline Cardiovascular: Yes: Regular Rate and Rhythm, S1 Respiratory: Yes: Diminished (B/B), Dullness (B/B) Gastrointestinal: Yes: Normal Bowel Sounds, Soft. No: Tenderness, Rebound ...Rectal Exam: Yes: Deferred Genitourinary: Yes: Daniels Present. No: Anuria, Bladder Distention Breast(s): Yes: WNL Musculoskeletal: Yes: Muscle Weakness Extremities: Yes: Calf Tenderness, Cold, Cyanosis Edema: Yes Edema: LUE: 2+, RUE: 2+, LLE: 2+, RLE: 2+ Peripheral Pulses WNL: No Neurological: Yes: Alert, Oriented, Dysarthria, Tremors. No: Aphasia Labs: CBC, BMP 10/02/19 06:15 10/02/19 06:15 INR, PTT INR 0.97 (0.83-1.09) 09/28/19 05:20 - ....Imaging X-ray: Report Reviewed Problem List - Problems (1) Sigmoid volvulus Assessment/Plan: S/P Sigmoidectomy, s/p colonoscopy by Dr coronado on 09/25/19. Repeat CT abdomen without IV contrast Code(s): K56.2 - VOLVULUS (2) Diabetes 1.5, managed as type 1 Assessment/Plan: Follow BGM and cover with Novolog Levemir 10 u daily Code(s): E13.9 - OTHER SPECIFIED DIABETES MELLITUS WITHOUT COMPLICATIONS (3) ASHD (arteriosclerotic heart disease) Assessment/Plan: Old [place]. Cardiac enzymes. Cardiology consult, ECHO Troponin 0.2-0.2 Elevated BNP Code(s): I25.10 - ATHSCL HEART DISEASE OF [place] CORONARY ARTERY W/O ANG PCTRS (4) Hypokalemia Assessment/Plan: Replace K PO Diet as per speech pathology.. Code(s): E87.6 - HYPOKALEMIA (5) HTN (hypertension) Assessment/Plan: Lisinopril started by cardiology Code(s): I10 - ESSENTIAL (PRIMARY) HYPERTENSION Qualifiers: Hypertension type: essential hypertension Qualified Code(s): I10 - Essential (primary) hypertension (6) COPD with asthma Assessment/Plan: Duonerobert nebs Code(s): J44.9 - CHRONIC OBSTRUCTIVE PULMONARY DISEASE, UNSPECIFIED (7) Severe protein-calorie malnutrition Code(s): E43 - UNSPECIFIED SEVERE PROTEIN-CALORIE MALNUTRITION (8) Severe protein-calorie malnutrition Assessment/Plan: NGT inserted by me today 12 Fr. Verified by ausculation. CXR to verify positioning. Glucerna via NGT and water. Zofran for vomiting. Problems reviewed: Yes Code(s): E43 - UNSPECIFIED SEVERE PROTEIN-CALORIE MALNUTRITION (9) Urinary retention Assessment/Plan: Continue Daniels for the next 24-48 hrs Problems reviewed: Yes Code(s): R33.9 - RETENTION OF URINE, UNSPECIFIED
--- NOTE | 2019-10-02 10:01 | PN ---
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 (short form) - Note 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: Surgery POD #4 laparoscopic sigmoid colon resection. Patient seen and examined on AM rounds. Stable from surgical perspective, having issues with PO intake/nutrition and vomiting. Requesting a diet soda. Nursing reports no issues overnight. Pain controlled Vital Signs Temp 98.3 F 10/02/19 10:00 Pulse 92 H 10/02/19 10:00 Resp 16 10/02/19 10:00 BP 150/53 L 10/02/19 10:00 Pulse Ox 98 10/02/19 10:00 Intake & Output 10/01/19 10/02/19 10/02/19 23:59 11:59 23:59 Intake Total 1813 450 Output Total 350 400 Balance 1463 50 Weight 135 lb Intake: IV 1123 330 Clinimix 126 330 LACTATED RINGERS SOLUTION 987 1,000 ml In 1,000 ml @ 75 mls/hr IV ASDIR ANABEL Rx #:[id number] Saline Lock 10 IVPB 300 Oral 390 120 Output: Urine 350 400 Daniels 350 400 Other: Voiding Method Indwelling Catheter Indwelling Catheter # Unmeasured Voids Daniels 1 Bowel Movement Yes No CBC, BMP 10/02/19 06:15 10/02/19 06:15 PE: Gen: awake, alert, nad Resp: Unlabored resp on 2L NC, no accessory muscle use ABD: Soft, ND with no areas of acute tenderness. 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
[2019-10-02] MEDS: HEPARIN NA (PORCINE) 5,000 UNITS/ML 1ML VIAL SQ SCH ×2 (10:50→22:07)
[2019-10-02] MEDS: PANTOPRAZOLE SODIUM 40 MG VIAL IVPUSH SCH (10:50)
[2019-10-02] MEDS: POLYETHYLENE GLYCOL 3350 119 GM BTL PO SCH (10:55)
[2019-10-02] MEDS: AMINO ACIDS/PROTEIN HYDROLYS 30 ML LIQUID.PKT PO SCH ×2 (10:56→18:37)
--- NOTE | 2019-10-02 11:02 | PN.GI ---
GI 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 Subjective: Tolerating feeds States that she "doesn't feel too good" Had MBS: esophagus emptied without hangup ? of submucosal cystic lesion distal esophagus - Objective Vital Signs: Vital Signs Temperature 97.8 F 10/02/19 06:00 Pulse Rate 92 H 10/02/19 06:00 Respiratory Rate 16 10/02/19 06:00 Blood Pressure 149/65 10/02/19 06:00 O2 Sat by Pulse Oximetry (%) 91 L 10/02/19 06:00 Constitutional: Calm Eyes: No: Sclera Icterus Cardiovascular: Yes: Regular Rate and Rhythm Respiratory: Yes: Diminished (at bases bilaterally) Gastrointestinal Inspection: No: Distention ...Auscultate: Yes: Normoactive Bowel Sounds Neurological: Yes: Alert Labs: CBC, BMP 10/02/19 06:15 10/02/19 06:15 INR, PTT INR 0.97 (0.83-1.09) 09/28/19 05:20 Problem List - Problems (1) Mucosal abnormality of esophagus Assessment/Plan: Discussed possibiltiy of EGD with Sr. Corona to evaluate for intraluminal pa thology. Discussed risks of tprocedure like but not limited to bleeding, perforation requiring surgery to repair, infection, sedation medication effects all of which could be potentially life threatening. She stated that she was tired, would think about that option. She is deconditioned, just underwent siigmoid resection and putting her through anesthesia / invasive testing again at this time likely not the most prudent thing to do. When optimized and acute issues are resolved, can be referred as outpatient for EGD/Endoscopic ultrasound if needed to assess for submucosal lesion. Code(s): K22.9 - DISEASE OF ESOPHAGUS, UNSPECIFIED
[2019-10-02] MEDS: LISINOPRIL 10 MG TABLET (FP) PO SCH ×2 (11:11→22:06)
--- NOTE | 2019-10-02 11:49 | PN ---
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, [facility] [employer] - Note 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: Selected Entries 10/01/19 10/01/19 10/01/19 02:00 04:00 05:51 Breakfast Blood Pressure O2 Sat by Pulse 98 100 97 Oximetry (%) Oxygen Delivery Method Oxygen Flow Rate 10/01/19 10/01/19 10/01/19 09:00 09:33 10:00 Breakfast 0 Blood Pressure O2 Sat by Pulse 97 99 Oximetry (%) Oxygen Delivery Nasal Cannula Method Oxygen Flow 2 Rate 10/01/19 10/01/19 10/01/19 14:00 18:00 21:00 Breakfast Blood Pressure O2 Sat by Pulse 99 97 97 Oximetry (%) Oxygen Delivery Nasal Cannula Method Oxygen Flow 2 Rate 10/01/19 10/02/19 10/02/19 22:00 02:00 06:00 Breakfast Blood Pressure 115/57 L 149/65 O2 Sat by Pulse 97 97 91 L Oximetry (%) Oxygen Delivery Method Oxygen Flow Rate 10/02/19 10:00 Breakfast 25% Blood Pressure O2 Sat by Pulse Oximetry (%) Oxygen Delivery Method Oxygen Flow Rate Laboratory Tests 10/02/19 06:15 WBC 8.8 MBS-Delayed emptying with dysmotility. Radiologist suggested CT ab TF Glucerna ordered. Followed by GI-? of submucosal cystic lesion distal esophagus
[2019-10-02] MEDS: AMINO ACIDS 4.25%/D5W 1,000 ML IV SCH (17:26)
[2019-10-02] MEDS ORDERED: INSULIN (LEVEMIR) 100 UNITS/ML UNITS SQ SCH (22:00)
[2019-10-03] MEDS: INSULIN SLIDING SCALE (NOVOLOG) 1 VIAL SQ SCH ×4 (06:24→21:29)
[2019-10-03 06:45] LABS: BASO % 0.5 % (0-2.0); HEMATOCRIT 29.7 % (32.4-45.2); HEMOGLOBIN 9.6 GM/dL (10.7-15.3); LYMPH % 7.2 % (8-40); MCHC 32.5 g/dl (32.0-36.0); MEAN CELL VOLUME 95.3 fl (80-96); MEAN PLT VOLUME 8.9 fl (7.5-11.1); NEUT % 79.3 % (42.8-82.8); PLATELET COUNT 333 K/MM3 (134-434); RBC 3.11 M/mm3 (3.60-5.2); RDW 14.8 % (11.6-15.6); WHITE BLOOD COUNT 8.3 K/mm3 (4.0-10.0)
[2019-10-03 07:01] LABS: ALBUMIN 1.7 g/dl (3.4-5.0); BILIRUBIN,TOTAL 0.3 mg/dL (0.2-1); BLOOD UREA NITROGEN 23.4 mg/dL (7-18); CALCIUM 8.1 mg/dL (8.5-10.1); CREATININE 0.6 mg/dL (0.55-1.3); POTASSIUM 3.4 mmol/L (3.5-5.1); TOT PROT 4.7 g/dl (6.4-8.2)
[2019-10-03] MEDS: ALBUTEROL SO4 2.5/IPRATROPIUM 0.5 INH SOL 3 ML VIAL.NEB. NEB SCH ×4 (08:29→20:28)
[2019-10-03] MEDS: KCL 10 MEQ IVPB 10 MEQ/100 ML INFUS.BAG IVPB SCH ×2 (10:11→11:55)
[2019-10-03] MEDS: AMINO ACIDS/PROTEIN HYDROLYS 30 ML LIQUID.PKT PO SCH ×2 (10:11→17:22)
[2019-10-03] MEDS: LISINOPRIL 10 MG TABLET (FP) PO SCH ×2 (10:12→21:30)
[2019-10-03] MEDS: PANTOPRAZOLE SODIUM 40 MG VIAL IVPUSH SCH (10:12)
[2019-10-03] MEDS: HEPARIN NA (PORCINE) 5,000 UNITS/ML 1ML VIAL SQ SCH ×2 (10:12→21:29)
[2019-10-03] MEDS: POLYETHYLENE GLYCOL 3350 119 GM BTL PO SCH (11:00)
--- NOTE | 2019-10-03 12:08 | PN ---
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 (short form) - Note 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: cc: volvulus s: no chest pain, palps, dizziness, dyspnea Current Medications Generic Name Dose Route Start Last Admin Trade Name Stacie PRN Reason Stop Dose Admin Albuterol Sulfate 2 puff 09/30/19 05:54 Ventolin Hfa Inhaler - IH Q4H PRN SHORT OF BREATH/WHEEZING Albuterol/Ipratropium 1 amp 10/02/19 08:00 10/03/19 11:45 Duoneb - NEB 1 amp RQID ANABEL Administration Amino Acids 30 ml 10/01/19 17:30 10/03/19 10:11 Prosource No Carb Liquid Pkt PO 30 ml BID@0800,1730 ANABEL Administration Heparin Sodium (Porcine) 5,000 unit 10/01/19 22:00 10/03/19 10:12 Heparin - SQ 5,000 unit BID ANABEL Administration Insulin Aspart 1 vial 10/01/19 22:00 10/03/19 11:07 Novolog Vial Sliding Scale - SQ 2 unit ACHS ANABEL Administration Protocol Insulin Detemir 10 units 10/02/19 22:00 10/02/19 22:08 Levemir Vial SQ 10 units HS ANABEL Administration Lisinopril 20 mg 10/01/19 22:00 10/03/19 10:12 Prinivil PO 20 mg BID ANABEL Administration Ondansetron HCl 4 mg 10/01/19 21:45 Zofran Injection IVPUSH Q4H PRN NAUSEA AND/OR VOMITING Pantoprazole Sodium 40 mg 10/02/19 10:00 10/03/19 10:12 Protonix Iv IVPUSH 40 mg DAILY ANABEL Administration Polyethylene Glycol 17 gm 10/02/19 10:00 10/03/19 11:00 Miralax (For Daily Use) - PO Not Given DAILY ANABEL Vital Signs Period Temp Pulse Resp BP Sys/Grossman Pulse Ox Last 24 Hr 98.1 F-98.7 F 91-94 16-20 120-138/50-67 96-98 Constitutional: Yes: No Distress, Calm Eyes: Yes: Conjunctiva Clear Cardiovascular: Yes: Regular Rate and Rhythm Respiratory: Yes: CTA Bilaterally Gastrointestinal: Yes: Soft (nt) Edema: No (venodynes) Neurological: Yes: Alert, Oriented no jaundice, diaphoresis not agitated Assessment/Plan Echo 09/27: nl LV, RV. valves WNL a/p: 79 f hx htn, hld, dm, sent from [place] for abd pain. Sigmoid volvulus, preop CV eval: -s/p lap sigmoid resection - manage per surgery Arrhythmia: -slow, irregular rhythm at night with poor baseline: ? sinus arrhythmia vs slow PAFib -will not start AC in absence of definitive AF on tele (note frequent APCs at times as well, not to be confused with AF) -cont tele monitoring (remains benign) HTN: -cont current meds positive trop: -borderline trop elevation with flat trend and nl ck, not c/w acs. ecg w/o ischemic changes. -normal LV fxn
--- NOTE | 2019-10-03 13:13 | PN ---
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, Physician History of Present Illness: s/p sigmoid resection for Volvulus Feeling better tolerating tube feedings Reports bms and denies abdominal pain - Current Medication List Current Medications: Active Medications Albuterol Sulfate (Ventolin Hfa Inhaler -) 2 puff IH Q4H PRN PRN Reason: SHORT OF BREATH/WHEEZING Albuterol/Ipratropium (Duoneb -) 1 amp NEB RQID [facility] Last Admin: 10/03/19 11:45 Dose: 1 amp Documented by: Amino Acids (Prosource No Carb Liquid Pkt) 30 ml PO BID@0800,1730 [facility] Last Admin: 10/03/19 10:11 Dose: 30 ml Documented by: Heparin Sodium (Porcine) (Heparin -) 5,000 unit SQ BID [facility] Last Admin: 10/03/19 10:12 Dose: 5,000 unit Documented by: Insulin Aspart (Novolog Vial Sliding Scale -) 1 vial SQ [facility]; Protocol Last Admin: 10/03/19 11:07 Dose: 2 unit Documented by: Insulin Detemir (Levemir Vial) 10 units SQ HS [facility] Last Admin: 10/02/19 22:08 Dose: 10 units Documented by: Lisinopril (Prinivil) 20 mg PO BID [facility] Last Admin: 10/03/19 10:12 Dose: 20 mg Documented by: Ondansetron HCl (Zofran Injection) 4 mg IVPUSH Q4H PRN PRN Reason: NAUSEA AND/OR VOMITING Pantoprazole Sodium (Protonix Iv) 40 mg IVPUSH DAILY [facility] Last Admin: 10/03/19 10:12 Dose: 40 mg Documented by: Polyethylene Glycol (Miralax (For Daily Use) -) 17 gm PO DAILY [facility] Last Admin: 10/03/19 11:00 Dose: Not Given Documented by: - Objective Vital Signs: Vital Signs Temperature 98.4 F 10/03/19 06:00 Pulse Rate 94 H 10/03/19 06:00 Respiratory Rate 20 10/03/19 06:00 Blood Pressure 138/66 10/03/19 06:00 O2 Sat by Pulse Oximetry (%) 96 10/03/19 06:00 Labs: CBC, BMP 10/03/19 05:50 10/03/19 05:50 INR, PTT INR 0.97 (0.83-1.09) 09/28/19 05:20 Problem List - Problems (1) Volvulus of descending colon Code(s): K56.2 - VOLVULUS Assessment/Plan doing well from surgery point of view CT scan results noted and images reviewed. radiologists comments noted. I see no evidence clinical or radiology of a extravasation or anastomotic leak. Continue with enteral feedings. Will continue to follow
--- NOTE | 2019-10-03 14:53 | PN ---
Physical Exam: SUBJECTIVE: Patient seen and examined, just finished respiratory treatment, denies new complains OBJECTIVE: Vital Signs Period Temp Pulse Resp BP Sys/Grossman Pulse Ox Last 24 Hr 97.5 F-98.4 F 91-101 18-20 123-139/60-68 96-98 GENERAL: The patient is awake, alert, in no acute distress. HEAD: Normal with no signs of trauma. NG tube in place EYES: PERRL LUNGS: Breath sounds equal, clear to auscultation bilaterally, no wheezes, mild crackles, no accessory muscle use. HEART: Regular rate and rhythm, S1, S2 without murmur, rub or gallop. ABDOMEN: Soft, nontender, nondistended, normoactive bowel sounds, no guarding, no rebound, no hepatosplenomegaly, no masses. EXTREMITIES: 2+ pulses, warm, well-perfused, no edema. Laboratory Results - last 24 hr 10/02/19 10/03/19 10/03/19 21:54 05:50 05:50 WBC 8.3 RBC 3.11 L Hgb 9.6 L Hct 29.7 L MCV 95.3 MCH 31.0 MCHC 32.5 RDW 14.8 Plt Count 333 MPV 8.9 Absolute Neuts (auto) 6.6 Neutrophils % 79.3 Lymphocytes % 7.2 L Monocytes % 8.0 Eosinophils % 5.0 H Basophils % 0.5 Nucleated RBC % 0 Sodium 137 Potassium 3.4 L Chloride 99 Carbon Dioxide 34 H Anion Gap 4 L BUN 23.4 H Creatinine 0.6 Est GFR (CKD-EPI)AfAm 101.90 Est GFR (CKD-EPI)NonAf 87.92 POC Glucometer 265 Random Glucose 295 H Calcium 8.1 L Total Bilirubin 0.3 AST 50 H ALT 23 Alkaline Phosphatase 190 H Total Protein 4.7 L Albumin 1.7 L 10/03/19 06:21 WBC RBC Hgb Hct MCV MCH MCHC RDW Plt Count MPV Absolute Neuts (auto) Neutrophils % Lymphocytes % Monocytes % Eosinophils % Basophils % Nucleated RBC % Sodium Potassium Chloride Carbon Dioxide Anion Gap BUN Creatinine Est GFR (CKD-EPI)AfAm Est GFR (CKD-EPI)NonAf POC Glucometer 282 Random Glucose Calcium Total Bilirubin AST ALT Alkaline Phosphatase Total Protein Albumin Active Medications Generic Name Dose Route Start Last Admin Trade Name Freq PRN Reason Stop Dose Admin Albuterol Sulfate 2 puff 09/30/19 05:54 Ventolin Hfa Inhaler - IH Q4H PRN SHORT OF BREATH/WHEEZING Albuterol/Ipratropium 1 amp 10/02/19 08:00 10/03/19 11:45 Duoneb - NEB 1 amp RQID ANABEL Administration Amino Acids 30 ml 10/01/19 17:30 10/03/19 10:11 Prosource No Carb Liquid Pkt PO 30 ml BID@0800,1730 ANABEL Administration Heparin Sodium (Porcine) 5,000 unit 10/01/19 22:00 10/03/19 10:12 Heparin - SQ 5,000 unit BID ANABEL Administration Insulin Aspart 1 vial 10/01/19 22:00 10/03/19 11:07 Novolog Vial Sliding Scale - SQ 2 unit ACHS ANABEL Administration Protocol Insulin Detemir 10 units 10/02/19 22:00 10/02/19 22:08 Levemir Vial SQ 10 units HS ANABEL Administration Lisinopril 20 mg 10/01/19 22:00 10/03/19 10:12 Prinivil PO 20 mg BID ANABEL Administration Ondansetron HCl 4 mg 10/01/19 21:45 Zofran Injection IVPUSH Q4H PRN NAUSEA AND/OR VOMITING Pantoprazole Sodium 40 mg 10/02/19 10:00 10/03/19 10:12 Protonix Iv IVPUSH 40 mg DAILY ANABEL Administration Polyethylene Glycol 17 gm 10/02/19 10:00 10/03/19 11:00 Miralax (For Daily Use) - PO Not Given DAILY ANABEL ASSESSMENT/PLAN: 79 YO lady from [place] sent for abdominal pain, with Mhx of DM, Parkinson's, HTN, HLD, Lt hip/ vertebral #s # Sigmoid Volvulus s/p segmoidectomy POD#5 - tolerating NG tube feeding, no new episodes of vomiting - had BM - CT findings discussed with radiologist and surgeon - afebrile, no leukocytosis, soft abdomen - c/w current management - trend electrolytes and replace as needed - adjusted insulin regimen due to hyperglycemia - DVT prophylaxis DMT2 CKD. Parkinson's disease. HTN Gait disorder. Falling. HLD, Multiple allergy. DNR/DNI Visit type - Emergency Visit Emergency Visit: Yes ED Registration Date: 09/24/19 Care time: The patient presented to the Emergency Department on the above date and was hospitalized for further evaluation of their emergent condition. - New Patient This patient is new to me today: Yes Date on this admission: 10/03/19 - Critical Care Critical Care patient: No - Discharge Referral Referred to [facility] No - Medication Review Med list reviewed for High Risk Meds patients 65 and older: Yes (reviewed)
[2019-10-03] MEDS ORDERED: POTASSIUM CHLORIDE ORAL LIQUID 20 MEQ/15 ML NGT ONE (17:46)
[2019-10-03] MEDS: INSULIN (LEVEMIR) 100 UNITS/ML UNITS SQ SCH (21:29)
[2019-10-04] MEDS: INSULIN SLIDING SCALE (NOVOLOG) 1 VIAL SQ SCH ×4 (06:16→21:37)
[2019-10-04 07:56] LABS: BASO % 0.8 % (0-2.0); HEMATOCRIT 30.1 % (32.4-45.2); HEMOGLOBIN 9.8 GM/dL (10.7-15.3); LYMPH % 7.1 % (8-40); MCH 31.4 pg (25.7-33.7); MCHC 32.6 g/dl (32.0-36.0); MEAN CELL VOLUME 96.5 fl (80-96); MEAN PLT VOLUME 9.7 fl (7.5-11.1); MONO % 6.6 % (3.8-10.2); NEUT % 80.5 % (42.8-82.8); PLATELET COUNT 338 K/MM3 (134-434); RBC 3.12 M/mm3 (3.60-5.2); RDW 15.1 % (11.6-15.6); WHITE BLOOD COUNT 8.1 K/mm3 (4.0-10.0)
[2019-10-04 07:57] LABS: ALBUMIN 1.8 g/dl (3.4-5.0); BILIRUBIN,TOTAL 0.4 mg/dL (0.2-1); BLOOD UREA NITROGEN 30.1 mg/dL (7-18); CALCIUM 8.2 mg/dL (8.5-10.1); CREATININE 0.6 mg/dL (0.55-1.3); POTASSIUM 4.4 mmol/L (3.5-5.1)
[2019-10-04] MEDS: ALBUTEROL SO4 2.5/IPRATROPIUM 0.5 INH SOL 3 ML VIAL.NEB. NEB SCH ×4 (08:16→20:20)
[2019-10-04] MEDS: AMINO ACIDS/PROTEIN HYDROLYS 30 ML LIQUID.PKT PO SCH ×2 (09:06→16:55)
[2019-10-04] MEDS: PANTOPRAZOLE SODIUM 40 MG VIAL IVPUSH SCH (09:06)
[2019-10-04] MEDS: INSULIN (LEVEMIR) 100 UNITS/ML UNITS SQ SCH ×2 (09:06→21:37)
[2019-10-04] MEDS: POLYETHYLENE GLYCOL 3350 119 GM BTL PO SCH (09:07)
[2019-10-04] MEDS: HEPARIN NA (PORCINE) 5,000 UNITS/ML 1ML VIAL SQ SCH ×2 (09:07→21:37)
[2019-10-04] MEDS: ZINC OXIDE/PETROLATUM,WHITE 1 APPLIC OINT...G. TP SCH (09:07)
[2019-10-04] MEDS: LISINOPRIL 10 MG TABLET (FP) PO SCH ×2 (09:07→21:38)
--- NOTE | 2019-10-04 10:59 | PN ---
Physical Exam: SUBJECTIVE: Patient seen and examined, doing well, feeling more energetic compared to yesterday OBJECTIVE: Vital Signs Period Temp Pulse Resp BP Sys/Grossman Pulse Ox Last 24 Hr 97.5 F-98.3 F 96-102 18-20 123-146/54-80 95-100 GENERAL: The patient is awake, alert, in no acute distress. HEAD: Normal with no signs of trauma. NG tube in place EYES: PERRL LUNGS: Breath sounds equal, clear to auscultation bilaterally, no wheezes, mild crackles, no accessory muscle use. HEART: Regular rate and rhythm, S1, S2 without murmur, rub or gallop. ABDOMEN: Soft, nontender, nondistended, normoactive bowel sounds, no guarding, no rebound, no hepatosplenomegaly, has direct hernia descending to rt labia, non tender EXTREMITIES: 2+ pulses, warm, well-perfused, no edema. Laboratory Results - last 24 hr 10/03/19 10/04/19 10/04/19 21:28 05:39 05:48 WBC 8.1 RBC 3.12 L Hgb 9.8 L Hct 30.1 L MCV 96.5 H MCH 31.4 MCHC 32.6 RDW 15.1 Plt Count 338 MPV 9.7 Absolute Neuts (auto) 6.5 Neutrophils % 80.5 Lymphocytes % 7.1 L Monocytes % 6.6 Eosinophils % 5.0 H Basophils % 0.8 Nucleated RBC % 0 Sodium Potassium Chloride Carbon Dioxide Anion Gap BUN Creatinine Est GFR (CKD-EPI)AfAm Est GFR (CKD-EPI)NonAf POC Glucometer 186 196 Random Glucose Calcium Total Bilirubin AST ALT Alkaline Phosphatase Total Protein Albumin 10/04/19 05:48 WBC RBC Hgb Hct MCV MCH MCHC RDW Plt Count MPV Absolute Neuts (auto) Neutrophils % Lymphocytes % Monocytes % Eosinophils % Basophils % Nucleated RBC % Sodium 140 Potassium 4.4 Chloride 101 Carbon Dioxide 33 H Anion Gap 6 L BUN 30.1 H Creatinine 0.6 Est GFR (CKD-EPI)AfAm 101.90 Est GFR (CKD-EPI)NonAf 87.92 POC Glucometer Random Glucose 215 H Calcium 8.2 L Total Bilirubin 0.4 AST 49 H ALT 27 Alkaline Phosphatase 251 H Total Protein 5.0 L Albumin 1.8 L Active Medications Generic Name Dose Route Start Last Admin Trade Name Freq PRN Reason Stop Dose Admin Albuterol Sulfate 2 puff 09/30/19 05:54 Ventolin Hfa Inhaler - IH Q4H PRN SHORT OF BREATH/WHEEZING Albuterol/Ipratropium 1 amp 10/02/19 08:00 10/04/19 08:16 Duoneb - NEB 1 amp RQID ANABEL Administration Amino Acids 30 ml 10/01/19 17:30 10/04/19 09:06 Prosource No Carb Liquid Pkt PO 30 ml BID@0800,1730 ANABEL Administration Heparin Sodium (Porcine) 5,000 unit 10/01/19 22:00 10/04/19 09:07 Heparin - SQ 5,000 unit BID ANABEL Administration Insulin Aspart 1 vial 10/01/19 22:00 10/04/19 06:16 Novolog Vial Sliding Scale - SQ Not Given ACHS [facility] Protocol Insulin Detemir 8 units 10/03/19 22:00 10/04/19 09:06 Levemir Vial SQ 8 units BID ANABEL Administration Lisinopril 20 mg 10/01/19 22:00 10/04/19 09:07 Prinivil PO 20 mg BID ANABEL Administration Ondansetron HCl 4 mg 10/01/19 21:45 Zofran Injection IVPUSH Q4H PRN NAUSEA AND/OR VOMITING Pantoprazole Sodium 40 mg 10/02/19 10:00 10/04/19 09:06 Protonix Iv IVPUSH 40 mg DAILY ANABEL Administration Petrolatum 1 applic 10/04/19 10:00 10/04/19 09:07 Sensi-Care Protective Ointment TP 1 applic DAILY ANABEL Administration Polyethylene Glycol 17 gm 10/02/19 10:00 10/04/19 09:07 Miralax (For Daily Use) - PO Not Given DAILY ANABEL ASSESSMENT/PLAN: 79 YO lady from [place] sent for abdominal pain, with Mhx of DM, Parkinson's, HTN, HLD, Lt hip/ vertebral #s # Sigmoid Volvulus s/p segmoidectomy POD#6 - tolerating NG tube feeding, no new episodes of vomiting - had BM - slight improvement in energy level - afebrile, no leukocytosis, soft abdomen - c/w current management - potassium level good today - improved glycemic control - DVT prophylaxis DMT2 CKD. Parkinson's disease. HTN Gait disorder. Falling. HLD, Multiple allergy. DNR/DNI Visit type - Emergency Visit Emergency Visit: Yes ED Registration Date: 09/24/19 Care time: The patient presented to the Emergency Department on the above date and was hospitalized for further evaluation of their emergent condition. - New Patient This patient is new to me today: No - Critical Care Critical Care patient: No - Discharge Referral Referred to [facility] No - Medication Review Med list reviewed for High Risk Meds patients 65 and older: No (reviewed)
--- NOTE | 2019-10-04 11:30 | PN ---
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 (short form) - Note 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: cc: volvulus s: no chest pain, palps, dizziness, dyspnea Current Medications Generic Name Dose Route Start Last Admin Trade Name Stacie PRN Reason Stop Dose Admin Albuterol Sulfate 2 puff 09/30/19 05:54 Ventolin Hfa Inhaler - IH Q4H PRN SHORT OF BREATH/WHEEZING Albuterol/Ipratropium 1 amp 10/02/19 08:00 10/04/19 08:16 Duoneb - NEB 1 amp RQID ANABEL Administration Amino Acids 30 ml 10/01/19 17:30 10/04/19 09:06 Prosource No Carb Liquid Pkt PO 30 ml BID@0800,1730 ANABEL Administration Heparin Sodium (Porcine) 5,000 unit 10/01/19 22:00 10/04/19 09:07 Heparin - SQ 5,000 unit BID ANABEL Administration Insulin Aspart 1 vial 10/01/19 22:00 10/04/19 11:15 Novolog Vial Sliding Scale - SQ Not Given ACHS [facility] Protocol Insulin Detemir 8 units 10/03/19 22:00 10/04/19 09:06 Levemir Vial SQ 8 units BID ANABEL Administration Lisinopril 20 mg 10/01/19 22:00 10/04/19 09:07 Prinivil PO 20 mg BID ANABEL Administration Ondansetron HCl 4 mg 10/01/19 21:45 Zofran Injection IVPUSH Q4H PRN NAUSEA AND/OR VOMITING Pantoprazole Sodium 40 mg 10/02/19 10:00 10/04/19 09:06 Protonix Iv IVPUSH 40 mg DAILY ANABEL Administration Petrolatum 1 applic 10/04/19 10:00 10/04/19 09:07 Sensi-Care Protective Ointment TP 1 applic DAILY ANABEL Administration Polyethylene Glycol 17 gm 10/02/19 10:00 10/04/19 09:07 Miralax (For Daily Use) - PO Not Given DAILY ANABEL Vital Signs Period Temp Pulse Resp BP Sys/Grossman Pulse Ox Last 24 Hr 97.5 F-98.5 F 96-102 18-20 123-149/54-80 95-100 Constitutional: Yes: No Distress, Calm Eyes: Yes: Conjunctiva Clear Cardiovascular: Yes: Regular Rate and Rhythm Respiratory: Yes: CTA Bilaterally Gastrointestinal: Yes: Soft (nt) Edema: No (venodynes) Neurological: Yes: Alert, Oriented no jaundice, diaphoresis not agitated Assessment/Plan Echo 09/27: nl LV, RV. valves WNL tele: sinus a/p: 79 f hx htn, hld, dm, [place]. Sigmoid volvulus, preop CV eval: -s/p lap sigmoid resection - manage per surgery Arrhythmia: -slow, irregular rhythm at night with poor baseline: ? sinus arrhythmia vs slow PAFib on admission -will not start AC in absence of definitive AF on tele (note frequent APCs at times as well, not to be confused with AF) -cont tele monitoring - sinus rhythm HTN: -cont current meds positive trop: -borderline trop elevation with flat trend and nl ck, not c/w acs. ecg w/o ischemic changes. -normal LV fxn
[2019-10-05] MEDS: AMINO ACIDS/PROTEIN HYDROLYS 30 ML LIQUID.PKT PO SCH ×2 (06:05→10:00)
[2019-10-05] MEDS: INSULIN SLIDING SCALE (NOVOLOG) 1 VIAL SQ SCH ×4 (06:17→22:06)
[2019-10-05 07:02] LABS: BASO % 0.5 % (0-2.0); EOS % 6.1 % (0-4.5); HEMATOCRIT 28.4 % (32.4-45.2); HEMOGLOBIN 9.3 GM/dL (10.7-15.3); LYMPH % 7.2 % (8-40); MCH 31.4 pg (25.7-33.7); MCHC 32.7 g/dl (32.0-36.0); MEAN PLT VOLUME 9.3 fl (7.5-11.1); MONO % 7.2 % (3.8-10.2); PLATELET COUNT 341 K/MM3 (134-434); RBC 2.96 M/mm3 (3.60-5.2); RDW 15.2 % (11.6-15.6); WHITE BLOOD COUNT 9.1 K/mm3 (4.0-10.0)
[2019-10-05 07:23] LABS: ALBUMIN 1.7 g/dl (3.4-5.0); BILIRUBIN,TOTAL 0.2 mg/dL (0.2-1); BLOOD UREA NITROGEN 29.8 mg/dL (7-18); CALCIUM 8.1 mg/dL (8.5-10.1); CREATININE 0.5 mg/dL (0.55-1.3); POTASSIUM 4.2 mmol/L (3.5-5.1); TOT PROT 4.8 g/dl (6.4-8.2)
[2019-10-05] MEDS: ALBUTEROL SO4 2.5/IPRATROPIUM 0.5 INH SOL 3 ML VIAL.NEB. NEB SCH ×4 (07:42→20:53)
--- NOTE | 2019-10-05 07:52 | PN ---
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, Physician Chief Complaint: Awake alert, feels better, tolerates NGT feeding. CT abdomen/pelvis was discussed with Dr Terry, f/u Dr Bruno appreciated. History of Present Illness: DM type 2, previously on Insulin. Atrophic kidney, history of cystitis, uti, hydronephrosis. Parkinson's disease. HTN Gait disorder. Falling. HLD, Multiple allergy. DNR/DNI Left hip fracture Syncope Compression fracture L1 Hydrocephalus on CT scan 2014 - Current Medication List Current Medications: Active Medications Albuterol Sulfate (Ventolin Hfa Inhaler -) 2 puff IH Q4H PRN PRN Reason: SHORT OF BREATH/WHEEZING Albuterol/Ipratropium (Duoneb -) 1 amp NEB RQID [facility] Last Admin: 10/04/19 20:20 Dose: Not Given Documented by: Amino Acids (Prosource No Carb Liquid Pkt) 30 ml PO BID@0800,1730 [facility] Last Admin: 10/04/19 16:55 Dose: 30 ml Documented by: Heparin Sodium (Porcine) (Heparin -) 5,000 unit SQ BID [facility] Last Admin: 10/04/19 21:37 Dose: 5,000 unit Documented by: Insulin Aspart (Novolog Vial Sliding Scale -) 1 vial SQ [facility]; Protocol Last Admin: 10/05/19 06:17 Dose: Not Given Documented by: Insulin Detemir (Levemir Vial) 8 units SQ BID [facility] Last Admin: 10/04/19 21:37 Dose: 8 units Documented by: Lisinopril (Prinivil) 20 mg PO BID [facility] Last Admin: 10/04/19 21:38 Dose: 20 mg Documented by: Ondansetron HCl (Zofran Injection) 4 mg IVPUSH Q4H PRN PRN Reason: NAUSEA AND/OR VOMITING Pantoprazole Sodium (Protonix Iv) 40 mg IVPUSH DAILY [facility] Last Admin: 10/04/19 09:06 Dose: 40 mg Documented by: Petrolatum (Sensi-Care Protective Ointment) 1 applic TP DAILY [facility] Last Admin: 10/04/19 09:07 Dose: 1 applic Documented by: - Objective Vital Signs: Vital Signs Temperature 98.1 F 10/05/19 06:00 Pulse Rate 91 H 10/05/19 06:00 Respiratory Rate 19 10/05/19 06:00 Blood Pressure 139/65 10/05/19 06:00 O2 Sat by Pulse Oximetry (%) 96 10/05/19 06:00 Constitutional: Yes: Anxious, Mild Distress, Pallor. No: Ashen, Obese Eyes: Yes: Conjunctiva Clear, EOM Intact HENT: Yes: Atraumatic, Normocephalic Neck: Yes: Supple, Trachea Midline Cardiovascular: Yes: Regular Rate and Rhythm, S1, S2. No: JVD Respiratory: Yes: Regular, CTA Bilaterally, Diminished (B/B) Gastrointestinal: Yes: Normal Bowel Sounds, Soft, Other (Rectal tube due to diarrhea) ...Rectal Exam: Yes: Deferred Genitourinary: Yes: Daniels Present Musculoskeletal: Yes: Muscle Weakness Edema: LUE: 1+, RUE: Trace, LLE: Trace, RLE: Trace Neurological: Yes: Alert, Oriented, Tremors. No: Aphasia, Confusion Labs: CBC, BMP 10/05/19 06:13 10/05/19 06:13 INR, PTT INR 0.97 (0.83-1.09) 09/28/19 05:20 Laboratory Results - last 24 hr 10/04/19 10/04/19 10/04/19 05:48 05:48 21:35 WBC 8.1 RBC 3.12 L Hgb 9.8 L Hct 30.1 L MCV 96.5 H MCH 31.4 MCHC 32.6 RDW 15.1 Plt Count 338 MPV 9.7 Absolute Neuts (auto) 6.5 Neutrophils % 80.5 Lymphocytes % 7.1 L Monocytes % 6.6 Eosinophils % 5.0 H Basophils % 0.8 Nucleated RBC % 0 Sodium 140 Potassium 4.4 Chloride 101 Carbon Dioxide 33 H Anion Gap 6 L BUN 30.1 H Creatinine 0.6 Est GFR (CKD-EPI)AfAm 101.90 Est GFR (CKD-EPI)NonAf 87.92 POC Glucometer 130 Random Glucose 215 H Calcium 8.2 L Total Bilirubin 0.4 AST 49 H ALT 27 Alkaline Phosphatase 251 H Total Protein 5.0 L Albumin 1.8 L 10/05/19 10/05/19 06:13 06:13 WBC 9.1 RBC 2.96 L Hgb 9.3 L Hct 28.4 L MCV 96.0 MCH 31.4 MCHC 32.7 RDW 15.2 Plt Count 341 MPV 9.3 Absolute Neuts (auto) 7.2 Neutrophils % 79.0 Lymphocytes % 7.2 L Monocytes % 7.2 Eosinophils % 6.1 H Basophils % 0.5 Nucleated RBC % 0 Sodium 141 Potassium 4.2 Chloride 101 Carbon Dioxide 33 H Anion Gap 7 L BUN 29.8 H Creatinine 0.5 L Est GFR (CKD-EPI)AfAm 108.20 Est GFR (CKD-EPI)NonAf 93.36 POC Glucometer Random Glucose 139 H Calcium 8.1 L Total Bilirubin 0.2 AST 48 H ALT 26 Alkaline Phosphatase 252 H Total Protein 4.8 L Albumin 1.7 L - ....Imaging Cat Scan: Report Reviewed Problem List - Problems (1) Sigmoid volvulus Assessment/Plan: S/P Sigmoidectomy, s/p colonoscopy by Dr coronado on 09/25/19. Ertapenem IV Thickened fluids, nectar diet Code(s): K56.2 - VOLVULUS (2) Diabetes 1.5, managed as type 1 Assessment/Plan: Follow BGM and cover with Novolog Code(s): E13.9 - OTHER SPECIFIED DIABETES MELLITUS WITHOUT COMPLICATIONS (3) ASHD (arteriosclerotic heart disease) Assessment/Plan: Old [place]. Cardiac enzymes. Cardiology consult, ECHO Troponin 0.2-0.2 Elevated BNP Code(s): I25.10 - ATHSCL HEART DISEASE OF [place] CORONARY ARTERY W/O ANG PCTRS (4) Hypokalemia Assessment/Plan: Stable K Diet as per speech pathology.. Code(s): E87.6 - HYPOKALEMIA (5) HTN (hypertension) Assessment/Plan: Lisinopril started by cardiology Code(s): I10 - ESSENTIAL (PRIMARY) HYPERTENSION Qualifiers: Hypertension type: essential hypertension Qualified Code(s): I10 - Essential (primary) hypertension (6) COPD with asthma Assessment/Plan: Duonebs nebs Code(s): J44.9 - CHRONIC OBSTRUCTIVE PULMONARY DISEASE, UNSPECIFIED (7) Elevated LFTs Assessment/Plan: Likely re-feeding syndrome. CT abdomen-liver without visible pathology Problems reviewed: Yes Code(s): R79.89 - OTHER SPECIFIED ABNORMAL FINDINGS OF BLOOD CHEMISTRY
[2019-10-05] MEDS ORDERED: PT OWN MED DRAWER 7, Y5N ONE (09:53)
[2019-10-05] MEDS: PANTOPRAZOLE SODIUM 40 MG VIAL IVPUSH SCH (09:57)
[2019-10-05] MEDS: HEPARIN NA (PORCINE) 5,000 UNITS/ML 1ML VIAL SQ SCH ×2 (09:57→22:06)
[2019-10-05] MEDS: INSULIN (LEVEMIR) 100 UNITS/ML UNITS SQ SCH ×2 (09:59→22:06)
[2019-10-05] MEDS: LISINOPRIL 10 MG TABLET (FP) PO SCH ×2 (09:59→22:05)
[2019-10-05] MEDS: ZINC OXIDE/PETROLATUM,WHITE 1 APPLIC OINT...G. TP SCH (10:00)
--- NOTE | 2019-10-05 10:53 | PN ---
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 (short form) - Note 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: Chief Complaint: volvulus/abd pain History of Present Illness: resting comfortably. denies cp, sob, palp, swelling dizzy Current Medications Generic Name Dose Route Start Last Admin Trade Name Stacie PRN Reason Stop Dose Admin Albuterol Sulfate 2 puff 09/30/19 05:54 Ventolin Hfa Inhaler - IH Q4H PRN SHORT OF BREATH/WHEEZING Albuterol/Ipratropium 1 amp 10/02/19 08:00 10/05/19 07:42 Duoneb - NEB 1 amp RQID ANABEL Administration Amino Acids 30 ml 10/01/19 17:30 10/05/19 10:00 Prosource No Carb Liquid Pkt PO 30 ml BID@0800,1730 ANABEL Administration Heparin Sodium (Porcine) 5,000 unit 10/01/19 22:00 10/05/19 09:57 Heparin - SQ 5,000 unit BID ANABEL Administration Insulin Aspart 1 vial 10/01/19 22:00 10/05/19 06:17 Novolog Vial Sliding Scale - SQ Not Given ACHS [facility] Protocol Insulin Detemir 8 units 10/03/19 22:00 10/05/19 09:59 Levemir Vial SQ 8 units BID ANABEL Administration Lisinopril 20 mg 10/01/19 22:00 10/05/19 09:59 Prinivil PO 20 mg BID ANABEL Administration Ondansetron HCl 4 mg 10/01/19 21:45 Zofran Injection IVPUSH Q4H PRN NAUSEA AND/OR VOMITING Pantoprazole Sodium 40 mg 10/02/19 10:00 10/05/19 09:57 Protonix Iv IVPUSH 40 mg DAILY ANABEL Administration Petrolatum 1 applic 10/04/19 10:00 10/05/19 10:00 Sensi-Care Protective Ointment TP 1 applic DAILY ANABEL Administration Vital Signs Period Temp Pulse Resp BP Sys/Grossman Pulse Ox Last 24 Hr 97.6 F-98.6 F 91-98 18-19 124-140/50-65 96-98 Constitutional: Yes: Well Nourished, No Distress, Calm Cardiovascular: Yes: Regular Rate and Rhythm. No: Murmur Respiratory: Yes: Regular. No: Accessory Muscle Use Extremities: No: Cold Edema: No Neurological: Yes: Alert, Oriented Psychiatric: No: Agitated no jaundice diaphoresis Labs: CBC, BMP 10/05/19 06:13 10/05/19 06:13 Assessment/Plan ecg: sr nl intervals no ischemic changes cxr: no sig chf Echo 09/27: nl LV, RV. valves WNL tele: sr a/p: 79 f hx htn, hld, dm, sent [place]. sigmoid volvulus, preop CV eval: -s/p lap sigmoid resection - manage per surgery arrhythmia: -has been on tele for over a week with no definitive AF seen (note frequent APCs at times as well, not to be confused with AF), at this point can dc tele htn: -cont current meds positive trop: -borderline trop elevation with flat trend and nl ck, not c/w acs. ecg w/o ischemic changes. -normal LV fxn
--- NOTE | 2019-10-05 12:16 | PN ---
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 (short form) - Note 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: Surgery POD #7, s/p laparoscopic sigmoid colon resection. Patient seen and examined on AM rounds. States she feels much better than she did on Saturday. Reports periods of confusion which scare her. Tolerating tube feeds, continues to have bms (diarrhea-RN placed rectal tube this AM). Pain controlled, denies cp/sob, n/v. Vital Signs Temp 98 F 10/05/19 10:00 Pulse 100 H 10/05/19 10:00 Resp 19 10/05/19 10:00 BP 131/68 10/05/19 10:00 Pulse Ox 96 10/05/19 10:00 Intake & Output 10/04/19 10/05/19 10/05/19 23:59 11:59 23:59 Intake Total 1020 Output Total 900 400 Balance -900 620 Intake: Oral Supplement 120 Tube Feeding 720 Tube Irrigant 180 Output: Urine 900 400 Daniels 900 400 Other: Voiding Method Indwelling Catheter Diaper Bowel Movement Yes Yes: soft # Bowel Movements 2 2 CBC, BMP 10/05/19 06:13 10/05/19 06:13 PE: Gen: awake, alert, nad Resp: Unlabored resp on 2L NC, no accessory muscle use ABD: Soft, ND with no areas of acute tenderness. 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
[2019-10-05] MEDS ORDERED: ACETAMINOPHEN 650 MG/20.3 ML ORAL SOLUTION (CUPS) NGT PRN (20:34)
[2019-10-05 23:59] VITALS: BMI 22.6
[2019-10-06] MEDS: INSULIN SLIDING SCALE (NOVOLOG) 1 VIAL SQ SCH ×4 (06:33→22:12)
[2019-10-06] MEDS: ALBUTEROL SO4 2.5/IPRATROPIUM 0.5 INH SOL 3 ML VIAL.NEB. NEB SCH ×4 (08:39→20:05)
--- NOTE | 2019-10-06 08:46 | PN ---
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, Physician History of Present Illness: s/p sigmoid resection 9 days postop diarrhea improving denies any pain - Current Medication List Current Medications: Active Medications Acetaminophen (Tylenol Oral Solution -) 650 mg NGT Q6H PRN PRN Reason: PAIN LEVEL 6-10 Albuterol Sulfate (Ventolin Hfa Inhaler -) 2 puff IH Q4H PRN PRN Reason: SHORT OF BREATH/WHEEZING Albuterol/Ipratropium (Duoneb -) 1 amp NEB RQID [facility] Last Admin: 10/06/19 08:39 Dose: 1 amp Documented by: Amino Acids (Prosource No Carb Liquid Pkt) 30 ml PO BID@0800,1730 [facility] Last Admin: 10/05/19 10:00 Dose: 30 ml Documented by: Heparin Sodium (Porcine) (Heparin -) 5,000 unit SQ BID [facility] Last Admin: 10/05/19 22:06 Dose: 5,000 unit Documented by: Insulin Aspart (Novolog Vial Sliding Scale -) 1 vial SQ [facility]; Protocol Last Admin: 10/06/19 06:33 Dose: Not Given Documented by: Insulin Detemir (Levemir Vial) 8 units SQ BID [facility] Last Admin: 10/05/19 22:06 Dose: Not Given Documented by: Lisinopril (Prinivil) 20 mg PO BID [facility] Last Admin: 10/05/19 22:05 Dose: 20 mg Documented by: Ondansetron HCl (Zofran Injection) 4 mg IVPUSH Q4H PRN PRN Reason: NAUSEA AND/OR VOMITING Pantoprazole Sodium (Protonix Iv) 40 mg IVPUSH DAILY [facility] Last Admin: 10/05/19 09:57 Dose: 40 mg Documented by: Petrolatum (Sensi-Care Protective Ointment) 1 applic TP DAILY [facility] Last Admin: 10/05/19 10:00 Dose: 1 applic Documented by: - Objective Vital Signs: Vital Signs Temperature 97.8 F 10/06/19 05:00 Pulse Rate 88 10/06/19 05:00 Respiratory Rate 20 10/06/19 05:00 Blood Pressure 132/66 10/06/19 05:00 O2 Sat by Pulse Oximetry (%) 99 10/06/19 05:00 Labs: CBC, BMP 10/05/19 06:13 10/05/19 06:13 INR, PTT INR 0.97 (0.83-1.09) 09/28/19 05:20 Problem List - Problems (1) Volvulus of descending colon Code(s): K56.2 - VOLVULUS Assessment/Plan s/p sigmoid resection POD 9 doing welll Feeding tube in the mid esophagus DO NOT use until reposition No rectal tubes or meds Cdiff pending
[2019-10-06] MEDS ORDERED: PT OWN MED DRAWER 7, Y5N ONE (10:40)
[2019-10-06] MEDS: AMINO ACIDS/PROTEIN HYDROLYS 30 ML LIQUID.PKT PO SCH ×2 (11:09→17:02)
[2019-10-06] MEDS: PANTOPRAZOLE SODIUM 40 MG VIAL IVPUSH SCH (11:09)
[2019-10-06] MEDS: LISINOPRIL 10 MG TABLET (FP) PO SCH ×2 (11:09→22:11)
[2019-10-06] MEDS: HEPARIN NA (PORCINE) 5,000 UNITS/ML 1ML VIAL SQ SCH ×2 (11:09→22:11)
[2019-10-06] MEDS: INSULIN (LEVEMIR) 100 UNITS/ML UNITS SQ SCH ×2 (11:25→22:11)
--- NOTE | 2019-10-06 12:56 | PN ---
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 (short form) - Note 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: cc: volvulus s: denies cp, sob, palp, swelling dizzy Current Medications Generic Name Dose Route Start Last Admin Trade Name Stacie PRN Reason Stop Dose Admin Acetaminophen 650 mg 10/05/19 20:34 Tylenol Oral Solution - NGT Q6H PRN PAIN LEVEL 6-10 Albuterol Sulfate 2 puff 09/30/19 05:54 Ventolin Hfa Inhaler - IH Q4H PRN SHORT OF BREATH/WHEEZING Albuterol/Ipratropium 1 amp 10/02/19 08:00 10/06/19 12:16 Duoneb - NEB 1 amp RQID ANABEL Administration Amino Acids 30 ml 10/01/19 17:30 10/06/19 11:09 Prosource No Carb Liquid Pkt PO 30 ml BID@0800,1730 [facility] Administration Heparin Sodium (Porcine) 5,000 unit 10/01/19 22:00 10/06/19 11:09 Heparin - SQ 5,000 unit BID ANABEL Administration Insulin Aspart 1 vial 10/01/19 22:00 10/06/19 11:23 Novolog Vial Sliding Scale - SQ Not Given ACHS [facility] Protocol Insulin Detemir 8 units 10/03/19 22:00 10/06/19 11:25 Levemir Vial SQ Not Given BID [facility] Lisinopril 20 mg 10/01/19 22:00 10/06/19 11:09 Prinivil PO 20 mg BID ANABEL Administration Ondansetron HCl 4 mg 10/01/19 21:45 Zofran Injection IVPUSH Q4H PRN NAUSEA AND/OR VOMITING Pantoprazole Sodium 40 mg 10/02/19 10:00 10/06/19 11:09 Protonix Iv IVPUSH 40 mg DAILY [facility] Administration Petrolatum 1 applic 10/04/19 10:00 10/05/19 10:00 Sensi-Care Protective Ointment TP 1 applic DAILY ANABEL Administration Vital Signs Period Temp Pulse Resp BP Sys/Grossman Pulse Ox Last 24 Hr 97.7 F-98.1 F 88-99 20-20 132-152/60-74 96-99 Constitutional: Yes: Well Nourished, No Distress, Calm Cardiovascular: Yes: Regular Rate and Rhythm. No: Murmur Respiratory: Yes: Regular. No: Accessory Muscle Use Extremities: No: Cold Edema: No Neurological: Yes: Alert, Oriented Psychiatric: No: Agitated no jaundice diaphoresis Assessment/Plan ecg: sr nl intervals no ischemic changes cxr: no sig chf Echo 09/27: nl LV, RV. valves WNL tele: sr a/p: 79 f hx htn, hld, dm, sent from [place] for abd pain. sigmoid volvulus, preop CV eval: -s/p lap sigmoid resection - manage per surgery arrhythmia: -was on tele for over a week with no definitive AF seen (note frequent APCs at times as well, not to be confused with AF) htn: -cont current meds positive trop: -borderline trop elevation with flat trend and nl ck, not c/w acs. ecg w/o ischemic changes. -normal LV fxn
--- NOTE | 2019-10-06 13:18 | PN ---
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 (short form) - Note 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: Daniels cath was re-inserted due to urinary retention. C.Diff PCR -P to evaluate diarrhea. Seen by the surgeon. Seen by cardiology-no PAF over 1 week-transferred to [facility].Ex-trace edema. NGT was re-positioned. Now the trial of PO diet is in progress. If tolerates PO better, we might d/c to SNF without GT. [facility] policy -no NGT accepted-discussed with Ms Muniz. The patient has a wish to avoid GT/PEG. Vital Signs - 24 hr 10/05/19 10/05/19 10/05/19 14:00 18:30 18:40 Temperature 97.7 F 97.9 F Pulse Rate 97 H 99 H Respiratory 20 20 20 Rate Blood Pressure 151/60 146/71 O2 Sat by Pulse 96 96 Oximetry (%) 10/05/19 10/05/19 10/06/19 21:00 22:00 01:44 Temperature 98.1 F 97.8 F Pulse Rate 96 H 94 H Respiratory 20 20 20 Rate Blood Pressure 152/68 142/74 O2 Sat by Pulse 98 98 97 Oximetry (%) 10/06/19 05:00 Temperature 97.8 F Pulse Rate 88 Respiratory 20 Rate Blood Pressure 132/66 O2 Sat by Pulse 99 Oximetry (%) PE Awake, alert, weak in bed, Pale. 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, managed as type 1 Acute Elevated LFTs Acute HTN (hypertension) Acute Hypokalemia Acute Mucosal abnormality of esophagus Acute Severe protein-calorie malnutrition Acute Severe protein-calorie malnutrition Acute Sigmoid volvulus Acute Urinary retention Acute Volvulus of descending colon Acute Current Medications Generic Name Dose Route Start Last Admin Trade Name Freq PRN Reason Stop Dose Admin Acetaminophen 650 mg 10/05/19 20:34 Tylenol Oral Solution - NGT Q6H PRN PAIN LEVEL 6-10 Albuterol Sulfate 2 puff 07/22/20 05:54 Ventolin Hfa Inhaler - IH Q4H PRN SHORT OF BREATH/WHEEZING Albuterol/Ipratropium 1 amp 10/02/19 08:00 10/06/19 12:16 Duoneb - NEB 1 amp RQID ANABEL Administration Amino Acids 30 ml 10/01/19 17:30 10/06/19 11:09 Prosource No Carb Liquid Pkt PO 30 ml BID@0800,1730 ANABEL Administration Heparin Sodium (Porcine) 5,000 unit 10/01/19 22:00 10/06/19 11:09 Heparin - SQ 5,000 unit BID ANABEL Administration Insulin Aspart 1 vial 10/01/19 22:00 10/06/19 11:23 Novolog Vial Sliding Scale - SQ Not Given ACHS [facility] Protocol Insulin Detemir 8 units 10/03/19 22:00 10/06/19 11:25 Levemir Vial SQ Not Given BID ANABEL Lisinopril 20 mg 10/01/19 22:00 10/06/19 11:09 Prinivil PO 20 mg BID ANABEL Administration Ondansetron HCl 8 mg 10/06/19 13:15 Zofran - PO Q8H ANABEL Pantoprazole Sodium 40 mg 10/02/19 10:00 10/06/19 11:09 Protonix Iv IVPUSH 40 mg DAILY ANABEL Administration Petrolatum 1 applic 10/04/19 10:00 10/05/19 10:00 Sensi-Care Protective Ointment TP 1 applic DAILY ANABEL Administration Tamsulosin HCl 0.4 mg 10/07/19 08:30 Flomax - PO DAILY@0830 [facility] Plan: Continue meds Start Tamsulosin po Zofran PO. Hold NGT feeds and diet po. Follow C.Diff test. Problem List - Problems (1) Sigmoid volvulus Code(s): K56.2 - VOLVULUS (2) Diabetes 1.5, managed as type 1 Code(s): E13.9 - OTHER SPECIFIED DIABETES MELLITUS WITHOUT COMPLICATIONS (3) ASHD (arteriosclerotic heart disease) Code(s): I25.10 - ATHSCL HEART DISEASE OF [place] CORONARY ARTERY W/O ANG PCTRS (4) Hypokalemia Code(s): E87.6 - HYPOKALEMIA (5) HTN (hypertension) Code(s): I10 - ESSENTIAL (PRIMARY) HYPERTENSION Qualifiers: Hypertension type: essential hypertension Qualified Code(s): I10 - Essential (primary) hypertension (6) COPD with asthma Code(s): J44.9 - CHRONIC OBSTRUCTIVE PULMONARY DISEASE, UNSPECIFIED (7) Elevated LFTs Code(s): R79.89 - OTHER SPECIFIED ABNORMAL FINDINGS OF BLOOD CHEMISTRY
[2019-10-06] MEDS: ONDANSETRON 8 MG TABLET (FP) PO SCH ×2 (13:52→22:11)
[2019-10-06 16:22] LABS: ALBUMIN 1.8 g/dl (3.4-5.0); BILIRUBIN,TOTAL 0.4 mg/dL (0.2-1); BLOOD UREA NITROGEN 24.5 mg/dL (7-18); CALCIUM 8.4 mg/dL (8.5-10.1); CREATININE 0.5 mg/dL (0.55-1.3); POTASSIUM 4.3 mmol/L (3.5-5.1); TOT PROT 5.1 g/dl (6.4-8.2)
[2019-10-06] MEDS: ZINC OXIDE/PETROLATUM,WHITE 1 APPLIC OINT...G. TP SCH (17:02)
[2019-10-07] MEDS: ONDANSETRON 8 MG TABLET (FP) PO SCH ×2 (06:35→14:41)
[2019-10-07] MEDS: INSULIN SLIDING SCALE (NOVOLOG) 1 VIAL SQ SCH ×2 (06:36→11:33)
[2019-10-07] MEDS ORDERED: DEXTROSE 50%-WATER - 25 GM/50 ML VIAL IVPUSH ONE (06:37)
[2019-10-07] MEDS ORDERED: DEXTROSE 50%-WATER 25 GM/50 ML DISP.SYRIN ONE (06:49)
--- NOTE | 2019-10-07 07:37 | PN ---
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, Physician Chief Complaint: Tolerating PO better, Good BM, no abdominal pain. Low BGM noted. History of Present Illness: DM type 2, previously on Insulin. Atrophic kidney, history of cystitis, uti, hydronephrosis. Parkinson's disease. HTN Gait disorder. Falling. HLD, Multiple allergy. DNR/DNI Left hip fracture Syncope Compression fracture L1 Hydrocephalus on CT scan 2014 - Current Medication List Current Medications: Active Medications Acetaminophen (Tylenol Oral Solution -) 650 mg NGT Q6H PRN PRN Reason: PAIN LEVEL 6-10 Albuterol Sulfate (Ventolin Hfa Inhaler -) 2 puff IH Q4H PRN PRN Reason: SHORT OF BREATH/WHEEZING Albuterol/Ipratropium (Duoneb -) 1 amp NEB RQID [facility] Last Admin: 10/06/19 20:05 Dose: 1 amp Documented by: Amino Acids (Prosource No Carb Liquid Pkt) 30 ml PO BID@0800,1730 [facility] Last Admin: 10/06/19 17:02 Dose: 30 ml Documented by: Heparin Sodium (Porcine) (Heparin -) 5,000 unit SQ BID [facility] Last Admin: 10/06/19 22:11 Dose: 5,000 unit Documented by: Insulin Aspart (Novolog Vial Sliding Scale -) 1 vial SQ [facility]; Protocol Last Admin: 10/07/19 06:36 Dose: Not Given Documented by: Lisinopril (Prinivil) 20 mg PO BID [facility] Last Admin: 10/06/19 22:11 Dose: 20 mg Documented by: Ondansetron HCl (Zofran -) 8 mg PO TID [facility] Last Admin: 10/07/19 06:35 Dose: 8 mg Documented by: Pantoprazole Sodium (Protonix Iv) 40 mg IVPUSH DAILY [facility] Last Admin: 10/06/19 11:09 Dose: 40 mg Documented by: Petrolatum (Sensi-Care Protective Ointment) 1 applic TP DAILY [facility] Last Admin: 10/06/19 17:02 Dose: 1 applic Documented by: Tamsulosin HCl (Flomax -) 0.4 mg PO DAILY@0830 [facility] - Objective Vital Signs: Vital Signs Temperature 98 F 10/07/19 06:00 Pulse Rate 85 10/07/19 06:00 Respiratory Rate 18 10/07/19 06:00 Blood Pressure 113/53 L 10/07/19 06:00 O2 Sat by Pulse Oximetry (%) 96 10/07/19 06:00 Constitutional: Yes: No Distress, Anxious Eyes: Yes: Conjunctiva Clear, EOM Intact HENT: Yes: Atraumatic, Normocephalic Neck: Yes: Supple, Trachea Midline Cardiovascular: Yes: Regular Rate and Rhythm, S1, S2. No: Bradycardia, Tachycardia Respiratory: Yes: Regular, CTA Bilaterally ...Rectal Exam: Yes: Deferred Genitourinary: Yes: Daniels Present. No: Bladder Distention Musculoskeletal: Yes: Muscle Weakness Extremities: No: Calf Tenderness, Cold Edema: Yes Edema: LUE: Trace, RUE: Trace, LLE: Trace, RLE: Trace Neurological: Yes: Alert, Oriented, Tremors ...Motor Strength: WNL Psychiatric: Yes: Alert, Oriented. No: Agitated, Suicidal Ideation Labs: CBC, BMP 10/05/19 06:13 10/06/19 15:06 INR, PTT INR 0.97 (0.83-1.09) 09/28/19 05:20 Problem List - Problems (1) Sigmoid volvulus Assessment/Plan: Resolved after surgery. Code(s): K56.2 - VOLVULUS (2) Diabetes 1.5, managed as type 1 Assessment/Plan: Follow BGM and cover with Novolog D/C Levemir due to poor PO intake Code(s): E13.9 - OTHER SPECIFIED DIABETES MELLITUS WITHOUT COMPLICATIONS (3) ASHD (arteriosclerotic heart disease) Assessment/Plan: Old VT. Cardiac enzymes. Cardiology consult, ECHO Troponin 0.2-0.2 Elevated BNP Code(s): I25.10 - ATHSCL HEART DISEASE OF [place] CORONARY ARTERY W/O ANG PCTRS (4) HTN (hypertension) Assessment/Plan: Lisinopril started by cardiology Code(s): I10 - ESSENTIAL (PRIMARY) HYPERTENSION Qualifiers: Hypertension type: essential hypertension Qualified Code(s): I10 - Essential (primary) hypertension (5) Elevated LFTs Assessment/Plan: Likely re-feeding syndrome. CT abdomen-liver without visible pathology Code(s): R79.89 - OTHER SPECIFIED ABNORMAL FINDINGS OF BLOOD CHEMISTRY (6) Severe protein-calorie malnutrition Assessment/Plan: Continue supplements at [facility]. Problems reviewed: Yes Code(s): E43 - UNSPECIFIED SEVERE PROTEIN-CALORIE MALNUTRITION
--- NOTE | 2019-10-07 07:40 | DS ---
Physical Examination Vital Signs: Vital Signs Temperature 98 F 10/07/19 06:00 Pulse Rate 85 10/07/19 06:00 Respiratory Rate 18 10/07/19 06:00 Blood Pressure 113/53 L 10/07/19 06:00 O2 Sat by Pulse Oximetry (%) 96 10/07/19 06:00 Constitutional: Yes: No Distress Eyes: Yes: Conjunctiva Clear, EOM Intact HENT: Yes: Atraumatic, Normocephalic Neck: Yes: Supple, Trachea Midline Cardiovascular: Yes: Regular Rate and Rhythm Respiratory: Yes: CTA Bilaterally, Diminished (B/B) Gastrointestinal: Yes: Normal Bowel Sounds, Soft ...Rectal Exam: Yes: Deferred Renal/: Yes: Daniels Present. No: Anuria, Bladder Distention Extremities: No: Calf Tenderness, Cold, Cyanosis Edema: Yes Edema: LUE: Trace, RUE: Trace, LLE: Trace, RLE: Trace Neurological: Yes: Alert, Oriented, Tremors ...Motor Strength: WNL Psychiatric: Yes: WNL Labs: CBC, BMP 10/05/19 06:13 10/06/19 15:06 Discharge Summary Problems reviewed: Yes Reason For Visit: ABDOMINAL DISTENSION,VOLVULUS OF SIGMOID COLON Current Active Problems ASHD (arteriosclerotic heart disease) (Acute) Allergy to multiple antibiotics (Acute) Diabetes 1.5, managed as type 1 (Acute) Elevated LFTs (Acute) HTN (hypertension) (Acute) Mucosal abnormality of esophagus (Acute) Severe protein-calorie malnutrition (Acute) Severe protein-calorie malnutrition (Acute) Sigmoid volvulus (Acute) Urinary retention (Acute) Volvulus of descending colon (Acute) Condition: Improved - Instructions Referrals: Brenton Mcneill MD [Primary Care Provider] - Disposition: RETIREMENT FACILITY - Home Medications Comprehensive Discharge Medication List: Ambulatory Orders Acetaminophen [Tylenol .Regular Strength -] 650 mg PO Q6H PRN 07/18/13 Insulin (Novolog) [Novolog Flexpen -] 0 units SQ [facility] 07/18/13 Insulin (Novolog) [Novolog Flexpen -] 3 units SQ [facility] 07/18/13 Lisinopril [Prinivil -] 2.5 mg PO DAILY 07/18/13 Polyethylene Glycol 3350 [Miralax 255 gm Btl -] 17 gm PO DAILY 07/18/13 Insulin Detemir [Levemir Flextouch] 10 unit SQ AM 09/24/19 Lactulose (Oral Use) [Cephulac -] 20 gm PO DAILY 09/24/19 Ondansetron HCl/Pf [Ondansetron HCl 4 mg/2 ml Vial] 4 mg IM Q8H 09/24/19 Pantoprazole Sodium [Protonix] 40 mg IV DAILY 09/24/19 Potassium Chloride 20 meq PO DAILY 09/24/19 Simethicone [Gas Relief 80] 80 mg PO BID PRN 09/24/19
[2019-10-07] MEDS ORDERED: TAMSULOSIN HCL 0.4 MG CAP PO SCH (08:30)
[2019-10-07] MEDS: AMINO ACIDS/PROTEIN HYDROLYS 30 ML LIQUID.PKT PO SCH (09:01)
[2019-10-07] MEDS: LISINOPRIL 10 MG TABLET (FP) PO SCH (10:30)
[2019-10-07] MEDS: HEPARIN NA (PORCINE) 5,000 UNITS/ML 1ML VIAL SQ SCH (10:30)
[2019-10-07] MEDS: PANTOPRAZOLE SODIUM 40 MG VIAL IVPUSH SCH (10:30)
[2019-10-07] MEDS: ZINC OXIDE/PETROLATUM,WHITE 1 APPLIC OINT...G. TP SCH (10:43)
--- NOTE | 2019-10-07 12:33 | PN ---
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 (short form) - Note 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: cc: volvulus s: denies cp, sob, palp, swelling dizzy Current Medications Generic Name Dose Route Start Last Admin Trade Name Stacie PRN Reason Stop Dose Admin Acetaminophen 650 mg 10/05/19 20:34 Tylenol Oral Solution - NGT Q6H PRN PAIN LEVEL 6-10 Albuterol Sulfate 2 puff 09/30/19 05:54 Ventolin Hfa Inhaler - IH Q4H PRN SHORT OF BREATH/WHEEZING Amino Acids 30 ml 10/01/19 17:30 10/07/19 09:01 Prosource No Carb Liquid Pkt PO 30 ml BID@0800,1730 ANA[facility]EL Administration Heparin Sodium (Porcine) 5,000 unit 10/01/19 22:00 10/07/19 10:30 Heparin - SQ 5,000 unit BID [facility]NA[facility]EL Administration Insulin Aspart 1 vial 10/01/19 22:00 10/07/19 11:33 Novolog Vial Sliding Scale - SQ Not Given ACHS [facility] Protocol Lisinopril 20 mg 10/01/19 22:00 10/07/19 10:30 Prinivil PO 20 mg BID [facility]NABEL Administration Ondansetron HCl 8 mg 10/06/19 14:00 10/07/19 06:35 Zofran - PO 8 mg TID [facility] Administration Pantoprazole Sodium 40 mg 10/02/19 10:00 10/07/19 10:30 Protonix Iv IVPUSH 40 mg DAILY [facility] Administration Petrolatum 1 applic 10/04/19 10:00 10/07/19 10:43 Sensi-Care Protective Ointment TP 1 applic DAILY [facility]EL Administration Tamsulosin HCl 0.4 mg 10/07/19 08:30 10/07/19 09:01 Flomax - PO 0.4 mg DAILY@0830 [facility]NA[facility]EL Administration Vital Signs Period Temp Pulse Resp BP Sys/Grossman Pulse Ox Last 24 Hr 97.9 F-98.3 F 85-105 16-18 113-139/52-80 90-99 Constitutional: Yes: Well Nourished, No Distress, Calm Cardiovascular: Yes: Regular Rate and Rhythm. No: Murmur Respiratory: Yes: Regular. No: Accessory Muscle Use Extremities: No: Cold Edema: No Neurological: Yes: Alert, Oriented Psychiatric: No: Agitated no jaundice diaphoresis Assessment/Plan ecg: sr nl intervals no ischemic changes cxr: no sig chf Echo 09/27: nl LV, RV. valves WNL a/p: 79 f hx htn, hld, dm, sent from [place] for abd pain. sigmoid volvulus, preop CV eval: -s/p lap sigmoid resection - manage per surgery arrhythmia: -was on tele for over a week with no definitive AF seen (note frequent APCs at times as well, not to be confused with AF) htn: -cont current meds positive trop: -borderline trop elevation with flat trend and nl ck, not c/w acs. ecg w/o ischemic changes. -normal LV fxn
[2019-10-07 15:25] VITALS: BP 114/54; PULSE 94; TEMP 98.8
== END 2019-10-07 15:53 | DRG 329 ==
LOC: JER 09:39 → JERBED 14:12 → JICU 15:59 → J4S 10-01 21:20 → J5S 10-05 18:57
PROVIDERS: ADMIT Internal Medicine; ATTEND Internal Medicine
PROC: 0DBN8ZX Excision of Sigmoid Colon, Via Natural or Artificial Opening Endoscopic, Diagnostic (ICD-10-PCS; 2019-09-25)
PROC: 0DBN4ZZ Excision of Sigmoid Colon, Percutaneous Endoscopic Approach (ICD-10-PCS; principal; 2019-09-28 14:00)
PROC: 0DH673Z Insertion of Infusion Device into Stomach, Via Natural or Artificial Opening (ICD-10-PCS; 2019-10-02)
DX: K56.2 Volvulus (principal); K55.059 Acute (reversible) ischemia of intestine, part and extent unspecified; J69.0 Pneumonitis due to inhalation of food and vomit; E43 Unspecified severe protein-calorie malnutrition; G91.9 Hydrocephalus, unspecified; K92.0 Hematemesis; E87.2 Acidosis; I24.8 Other forms of acute ischemic heart disease; I10 Essential (primary) hypertension; E78.5 Hyperlipidemia, unspecified; K59.09 Other constipation; E11.9 Type 2 diabetes mellitus without complications; J44.9 Chronic obstructive pulmonary disease, unspecified; G20 Parkinson's disease; R26.9 Unspecified abnormalities of gait and mobility; M48.56XS Collapsed vertebra, not elsewhere classified, lumbar region, sequela of fracture; R79.89 Other specified abnormal findings of blood chemistry; I25.10 Atherosclerotic heart disease of native coronary artery without angina pectoris; E87.6 Hypokalemia; G31.83 Neurocognitive disorder with Lewy bodies; N26.1 Atrophy of kidney (terminal); D72.829 Elevated white blood cell count, unspecified; D64.9 Anemia, unspecified; K22.9 Disease of esophagus, unspecified; R33.9 Retention of urine, unspecified; Z88.0 Allergy status to penicillin; Z68.21 Body mass index [BMI] 21.0-21.9, adult; Z66 Do not resuscitate; K57.90 Diverticulosis of intestine, part unspecified, without perforation or abscess without bleeding; K63.5 Polyp of colon; K62.1 Rectal polyp; K64.8 Other hemorrhoids
CPT/HCPCS: 36415; 71045-TC-FY; 74018-TC-FY; 74176-TC; 74230-TC-FY; 80048; 80053; 81003; 82150; 82272; 82550; 82553; 82962; 83036; 83605; 83615; 83690; 83735; 83880; 84100; 84484; 85025; 85027; 85610; 85730; 86140; 86850; 86900; 86901; 87040; 87086; 87324; 87449; 88305-TC; 88307-TC; 92611-GN; 93005; 93010; 93306-TC; 94010; 94640; 97116-GP; 97162-GP; 99285-25; J0131; J1644; Q9967; U0003

== ENCOUNTER 2021-03-16 11:20 | Emergency (ER) | payer OTHER ==
[2021-03-16 11:59] VITALS: BMI 20.7
[2021-03-16] MEDS ORDERED: LISINOPRIL 5 MG TABLET PO ONE (12:15)
[2021-03-16] MEDS ORDERED: LISINOPRIL 5 MG TABLET ONE (12:57)
[2021-03-16 15:49] VITALS: BP 197/84; PULSE 87; TEMP 98.7
== END 2021-03-16 16:22 ==
LOC: JER 11:20
DX: S09.90XA Unspecified injury of head, initial encounter (principal); M25.512 Pain in left shoulder; W19.XXXA Unspecified fall, initial encounter; Y92.9 Unspecified place or not applicable
CPT/HCPCS: 70450-TC; 70486-TC; 71101-TC-LT-FY; 72125-TC; 73030-TC-LT-FY; 73060-TC-LT-FY; 99284-25

== ENCOUNTER 2022-10-16 12:58 | Emergency (ER) | payer OTHER ==
[2022-10-16] MEDS ORDERED: FUROSEMIDE 40 MG/4 ML INJECTABLE VIAL IVPUSH ONE ×2 (13:19→14:24)
[2022-10-16] MEDS ORDERED: ASPIRIN 81 MG CHEWABLE TABLETS PO ONE (13:33)
[2022-10-16 13:35] VITALS: TEMP 97; BMI 21.6
[2022-10-16] MEDS ORDERED: ASPIRIN 81 MG CHEWABLE TABLETS ONE (13:35)
[2022-10-16] MEDS ORDERED: HEPARIN NA (PORCINE) 5,000 UNITS/ML 1ML VIAL IVPUSH ONE (13:35)
[2022-10-16] MEDS ORDERED: HEPARIN INFUSION - 25,000 UNITS/500 ML INFUS.BAG IVPB SCH (13:35)
[2022-10-16] MEDS ORDERED: HEPARIN NA (PORCINE) 5,000 UNITS/ML 1ML VIAL ONE (13:35)
[2022-10-16] MEDS ORDERED: ATORVASTATIN CA 80 MG TABLET (FP) PO ONE (13:42)
[2022-10-16] MEDS ORDERED: CLOPIDOGREL BISULFATE 300 MG TABLET PO ONE ×2 (13:43→13:45)
[2022-10-16] MEDS ORDERED: ATORVASTATIN CA 20 MG TABLET (FP) ONE (14:00)
[2022-10-16] MEDS ORDERED: FUROSEMIDE 40 MG/4 ML INJECTABLE VIAL ONE (14:25)
[2022-10-16 14:33] LABS: VENOUS BASE EXCESS -4.1 mmol/L (-2-2); VENOUS O2 SATURATION 65.9 % (70-80); VENOUS PCO2 46.8 mmHg (38-52); VENOUS PH 7.299 (7.310-7.410)
[2022-10-16 14:50] VITALS: BP 132/75; PULSE 114; RESP 26
[2022-10-16 14:50] LABS: HEMATOCRIT 37.8 % (32.4-45.2); HEMOGLOBIN 12.3 GM/dL (10.7-15.3); MCH 31.6 pg (25.7-33.7); MCHC 32.4 g/dl (32.0-36.0); MEAN CELL VOLUME 97.5 fl (80-96); MEAN PLT VOLUME 10.6 fl (7.5-11.1); PLATELET COUNT 318 10^3/uL (134-434); RBC 3.88 M/mm3 (3.60-5.2); WHITE BLOOD COUNT 18.2 K/mm3 (4.0-10.0)
[2022-10-16 14:58] LABS: INR 1.16 (0.83-1.09); PROTHROMBIN TIME (PATIENT) 13.4 SEC (9.7-13.0)
[2022-10-16 15:17] LABS: LACTIC ACID 4.4 mmol/L (0.4-2.0)
[2022-10-16 15:23] LABS: ANISOCYTOSIS 0; HELMET CELLS 0; HOWELL-JOLLY BODIES 0; MACROCYTOSIS 0; OVALOCYTE 0; ROULEAU 0; SICKELED CELLS 0; TARGET CELLS 0; TEAR DROP CELLS 0; TOXIC GRANULATION 0
[2022-10-16 15:58] LABS: ALBUMIN 2.5 g/dl (3.4-5.0); ALK PHOS 262 U/L (45-117); BILIRUBIN,TOTAL 0.3 mg/dL (0.2-1); BLOOD UREA NITROGEN 61.3 mg/dL (7-18); CO2 21 mmol/L (21-32); CREATININE 1.7 mg/dL (0.55-1.3); GLUCOSE,RANDOM 493 mg/dL (74-106); LIPASE 44 U/L (73-393); MAGNESIUM 2.7 mg/dL (1.8-2.4); N-TERMINAL BNP 26477.2 pg/ml (5-450); SGOT/AST 47 U/L (15-37); SGPT/ALT 23 U/L (13-61); TOT PROT 6.8 g/dl (6.4-8.2)
[2022-10-16 16:47] LABS: ANION GAP 18 MMOL/L (8-16); CHLORIDE 96 mmol/L (98-107); POTASSIUM 4.4 mmol/L (3.5-5.1); SODIUM 135 mmol/L (136-145)
== END 2022-10-16 14:50 | disposition short-term general hospital (02) ==
LOC: JER 12:58
PROC: 3E033GC Introduction of Other Therapeutic Substance into Peripheral Vein, Percutaneous Approach (ICD-10-PCS; principal; 2022-10-16)
PROC: 3E033GC Introduction of Other Therapeutic Substance into Peripheral Vein, Percutaneous Approach (ICD-10-PCS; 2022-10-16)
DX: R06.02 Shortness of breath (principal); R73.9 Hyperglycemia, unspecified; I21.3 ST elevation (STEMI) myocardial infarction of unspecified site; R06.82 Tachypnea, not elsewhere classified; R09.02 Hypoxemia; R00.0 Tachycardia, unspecified; R53.83 Other fatigue; Z20.822 Contact with and (suspected) exposure to COVID-19
CPT/HCPCS: 0241U-QW; 36415; 71045-TC-FY; 80053; 82010; 82803; 82962; 83605; 83690; 83735; 83880; 84484; 85025; 85610; 85730; 86850; 86900; 86901; 87040; 87186; 93005; 93010; 99291; J1644